=== PATIENT | male | born 1955 | race Caucasian/White ===

== ENCOUNTER 2023-06-06 10:27 | Emergency (ER) | payer MEDICARE, OTHER, SELFPAY ==
[2023-06-06 10:33] LABS: Glucose - Point of Care 92 mg/dl (70-99)
[2023-06-06 11:07] VITALS: BP 105/77; BMI 37.8
[2023-06-06] MEDS: OMNIPAQUE 50 ML PO (11:21)
[2023-06-06 11:33] LABS: % Basophils 0.8 % (0-2); % Eosinophils 2.8 % (0-6); % Immature Granulocytes 0.4 % (0-0.5); % Lymphocytes 24.1 % (20.5-51.1); % Monocytes 9.5 % (1.7-9.3); % Neutrophils 62.4 % (42.2-75.2); Absolute Basophils 0.1 10^3/uL (0-0.2); Absolute Eosinophils 0.2 10^3/uL (0-0.7); Absolute Lymphocytes 1.9 10^3/uL (1.2-3.4); Absolute Monocytes 0.8 10^3/uL (0.1-0.6); Absolute Neutrophils 4.9 10^3/uL (1.4-6.5); Hemoglobin 14.9 g/dL (13.0-18.0); Mean Corp Hgb Conc. 33.1 g/dL (33.0-37.0); Mean Corpuscular Hgb 32.5 pg (27.0-31.0); Mean Corpuscular Volume 98.3 fL (80.0-94.0); Mean Platelet Volume 10.6 fL (7.4-10.4); Nucleated Red Blood Cells % 0 % (-); Platelet Count 185 10^3/uL (130-400); Red Blood Cell Count 4.58 10^6/uL (4.70-6.10); Red Cell Dist. Width 13.1 % (11.5-14.5); White Blood Cell Count 7.9 10^3/uL (4.8-10.8)
[2023-06-06 11:37] LABS: Urine Albumin Trace (Neg - Trace); Urine Bilirubin 1+ (Negative); Urine Character Slightly Cloudy (Clear); Urine Color Yellow; Urine Glucose Negative (Negative); Urine Ketone 1+ (Negative); Urine Leukocyte Trace (Negative); Urine Nitrite Negative (Negative); Urine Occult Blood Negative (Negative); Urine Urobilinogen 1+ (Neg - 1+)
[2023-06-06 11:46] LABS: Urine Mucus Many; Urine Red Blood Cell 0-2 /HPF (0-2); Urine Squamous Cell 26-30 /LPF (Few)
[2023-06-06 11:47] LABS: Urine Bacteria Few (Negative)
[2023-06-06 12:00] LABS: ALT (SGPT) 11 U/L (0-50); AST (SGOT) 28 U/L (17-59); Albumin 3.9 g/dl (3.5-5.0); Alkaline Phosphatase 73 U/L (38-126); Blood Urea Nitrogen 27 mg/dl (9-20); Carbon Dioxide 24 mmol/L (22-30); Chloride 108 mmol/L (98-107); Estimated Creatinine Clearance 108 ml/min; Glucose 74 mg/dl (70-99); Lipase 79 U/L (23-300); Potassium 4.3 mmol/L (3.5-5.1); Sodium 137 mmol/L (135-145); Total Bilirubin 0.8 mg/dl (0.2-1.3); Total Protein 6.4 g/dl (6.3-8.2); eGFR > 60.00
--- NOTE | 2023-06-06 12:55 | ED.GENMED ---
History of Present Illness
General
Chief Complaint: Abdominal Pain
Source: patient and spouse
Exam Limitations: clinical condition (Apraxia)
Time Seen by Provider: 06/06/23 10:39
Nursing documentation reviewed up to this point in time: agreed with
Travel History
Have you had any contact with someone who has COVID-19?: No
Do you have any symptoms of coronavirus? Fever > 100 degrees, chills, cough, shortness of breath, sore throat, loss of taste or smell, muscle aches, or headache?: No
History of Present Illness
History of Present Illness:
67-year-old male with past medical history of Parkinson's, CUATE on CPAP, hypertension, hyperlipidemia, CHF, diabetes, apraxia who presents to the emergency department for evaluation of abdominal pain. Patient reports onset of symptoms this morning
just prior to arrival�says he has right sided abdominal/flank pain. No clear triggering or relieving factors noted. He says that symptoms have been waxing and waning�currently he says he is pain-free. He denies any associated nausea or vomiting.
Denies any recent fevers or chills. Denies any constipation or diarrhea. He denies any dysuria, hematuria, change in urinary frequency. He denies similar symptoms in the past. His offers that he recently started doing some physical therapy
and that 2 days ago he did a workup with a therapist for core strength and she wonders if perhaps his pain could be muscular.
Past History
Past History
ED Past Medical History: CHF, HTN, Hypercholesterolemia, NIDDM and Other (Sleep apnea, DVT)
ED Past Surgical History: Cardiac, Cholecystectomy, Orthopedic and Other
Social History
Tobacco: Non-smoker
Alcohol: None
Drug: None
Personal:
Living: with family
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
Family History
Family History: CAD
Review of Systems
Review of Systems
All Other Systems: ROS reviewed and negative except as documented in HPI and ROS
Constitutional: Denies fever or chills
Respiratory: Denies cough or trouble breathing
Cardiac: Denies chest pain or palpitations
ABD/GI: Reports abdominal pain; Denies nausea, vomiting, diarrhea or constipated
: Reports flank pain; Denies dysuria or frequency
Musculoskeletal: Denies neck pain or back pain
Neurological: Denies headache, weakness or numbness
Phy Exam
Physical Exam
Physical Exam:
General: Awake, alert; no acute distress
Head: Normocephalic, atraumatic
Eyes: Conjunctiva normal, sclera anicteric
Throat: Airway intact, handling secretions
Neck: Trachea midline, supple without meningismus
Lungs: Clear to auscultation bilaterally, no wheezing, rales, rhonchi
Heart: Regular rate and rhythm, no murmurs, gallops, or rubs
Abd: Soft, non distended, very mildly tender in the right lateral lower abdomen/flank; no abdominal masses noted, no peritoneal signs
Neuro: Cranial nerves grossly intact, speech fluid
Skin: no rash
Extremities: No edema in extremities, warm and well-perfused
Scores
Heart Failure Risk
Heart Failure Risk Score: Not Applicable
Heart Score for Chest Pain Patients
STEMI patient?: Not applicable
Withdrawal Assessment of Alcohol
Withdrawal Assessment Completed?: Not applicable
Course
Orders/Labs/Results
Orders:
Orders
06/06/23 10:41
Iohexol [Omnipaque] See Protocol PO NOW STA
06/06/23 10:42
CT Abd/pel W Iv And Oral Contr Urgent
Comment:
Reason For Exam: right sided abd pain
06/06/23 11:20
Complete Blood Count/With Diff Urgent
Comprehensive Metabolic Panel Urgent
Lipase Urgent
Urinalysis Reflex To Culture Urgent
Date Specimen was Collected: 06/06/23
Time Specimen was Collected: 11:07
Urine Microscopic Reflex Cult Urgent
Abnormal Lab Results
06/06/23
11:20
RBC 4.58 L 10^6/uL
(4.70-6.10)
MCV 98.3 H fL
(80.0-94.0)
MCH 32.5 H pg
(27.0-31.0)
MPV 10.6 H fL
(7.4-10.4)
Absolute Monos (auto) 0.8 H 10^3/uL
(0.1-0.6)
Monocytes % 9.5 H %
(1.7-9.3)
Chloride 108 H mmol/L
(98-107)
BUN 27 H mg/dl
(9-20)
Urine Ketones 1+ A
(Negative)
Urine Bilirubin 1+ A
(Negative)
Leukocyte Esterase Rfl Trace A
(Negative)
Urine Bacteria (Reflex) Few A
(Negative)
06/06/23 11:20
06/06/23 11:20
Vital Signs
Initial and Last Documented VS:
Initial Vital Signs
Pulse Resp Pulse Ox
68 18 98
06/06/23 10:30 06/06/23 10:30 06/06/23 10:30
Last Documented Vital Signs
Temp Pulse Resp BP Pulse Ox
36.4 C 57 16 105/77 95
06/06/23 11:07 06/06/23 11:07 06/06/23 11:07 06/06/23 11:07 06/06/23 11:07
MDM/Problems Addressed
Differential Diagnosis Includes:
Muscular strain, nephrolithiasis, cholelithiasis; UTI, appendicitis a consideration but less likely given timing of symptoms
MDM/Problems Addressed:
67-year-old male presents for evaluation of right-sided abdominal pain that started today. Waxing and waning. No clear triggering or relieving factors. No associated signs or symptoms. He did start some physical therapy and was doing core
exercises 2 days ago. Vital signs here within normal limits. Exam as above. Plan to place an IV check labs including CBC and CMP and will check a urinalysis. Will send for CT of the abdomen pelvis. Monitor closely reassess after the above.
Labs reviewed: CBC unremarkable, CMP no clinically significant abnormalities. Urinalysis negative for blood, no signs of infection. Awaiting results of CT. Patient pain-free on reassessment�he says he has not had pain again since my initial
assessment.
CT negative for any acute pathology�no kidney stones, no appendicitis. Patient has been pain-free throughout the entirety of his ED stay he says he has not had recurrence. Patient and spouse think pain may be muscular related to recent PT think
this is most likely diagnosis at this point. I think he is stable for discharge at this point. Vitals have remained stable. Spoke to him and his about return precautions all questions answered.
Chronic conditions affecting care:
History of prior cholecystectomy; history of prior gastric sleeve
*Radiology
Radiology exam reviewed: radiology read reviewed
*Pulse Oximetry
Patient hypoxic: no
*Critical Care Note
Total Time (30-74mins, 75-104mins- exclusive of procedures): Not Applicable
Data Reviewed
Source: patient, records and spouse
ED Attending Note
-
Portions of this chart may have been created with voice recognition software.� Occasional wrong word or��sound alike� substitutions may have occurred due to the inherent limitations of voice recognition software.
Discharge Plan
Departure
Patient Disposition: Home (Routine Discharge)
Date of Disposition: 06/06/23
Time of Disposition: 14:33
Patient with high blood pressure during this ER visit?: No
Discharge Problem:
Abdominal pain
Instructions: Abdominal Muscle Strain ED
Prescriptions:
No Action
bupropion HCl [Wellbutrin SR] 150 MG tablet sustained-release 12 hr
300 mg PO DAILY
cyanocobalamin (vitamin B-12) 1,000 MCG tablet
1,000 mcg PO QPM
glimepiride 2 MG tablet
2 mg PO BID@0800,1700
montelukast 10 MG tablet
10 mg PO DAILY
allopurinol 300 MG tablet
300 mg PO DAILY
fluticasone propionate 1 SPRAY spray,suspension
1 spray intranasal DAILYPRN PRN (Reason: Congestion/allergies)
albuterol sulfate 1 PUFF HFA aerosol inhaler
2 puff inhalation R Q6HPRN PRN (Reason: sob)
carbidopa-levodopa 25-250 mg tablet
2 tab PO QID
lisinopril 20 mg tablet
20 mg PO HS
furosemide 20 mg Tablet
20 mg PO MOWEFR
metoprolol succinate 25 mg Tablet Extended Release 24 Hr
25 mg PO QPM
metformin 500 mg tablet extended release 24 hr
500 mg PO QPM
escitalopram oxalate 10 mg tablet
10 mg PO DAILY
rosuvastatin 5 mg tablet
5 mg PO QPM
cholecalciferol (vitamin D3) [Vitamin D3] 50 mcg (2,000 unit) Tablet
50 mcg PO DAILY
donepezil 23 mg tablet
23 mg PO HS
memantine 28 mg capsule,sprinkle,ER 24hr
28 mg PO HS
MCT Oil
3,000 mg PO QPM
aspirin 81 MG tablet,chewable
81 mg PO QPM
cefuroxime axetil 500 mg Tablet
500 mg PO BID Qty: 20 0RF
Referrals:
Cece Jalloh DO [Family Provider] - Follow up in 2-3 days
Activity Restrictions/Additional Instructions:
Thank you for visiting the Emergency Department at [facility].
1. Please schedule a follow up appointment as directed. Call first thing tomorrow morning to make an appointment.
2. If indicated, please take your medications as instructed and indicated on discharge paperwork.
3. If any of your symptoms do not improve, or persist, or become more severe within 6-12 hours, please return to the emergency department for further care.
4. Please return to the emergency department if you develop a headache, neck pain/stiffness, fever greater than 100.4F, chest pain, shortness of breath, persistent nausea, vomiting, slurred speech, difficulty walking, numbness/tingling, weakness,
signs of infection or any other symptoms that are worrisome to you.
Please call [phone] if you have any questions.
Interventions
Interventions:
*Risk Screen - Suicide Last Done: 06/06/23 11:07
*General Assessment Last Done: 06/06/23 11:07
*Neglect/Abuse Screening Last Done: 06/06/23 11:07
ED- Fall Risk Assessment Last Done: 06/06/23 11:07
*ED COVID-19 Vaccine History Last Done: 06/06/23 11:07
XP-Yosjks-Nhdofhfgge Assessment Last Done: 06/06/23 11:07
[2023-06-06 14:40] VITALS: BP 108/55
== END 2023-06-06 14:40 | disposition home or self-care (01) ==
LOC: EMR 10:27
PROVIDERS: EMERGENCY PHYSICIAN Emergency Medicine; FAMILY PHYSICIAN Family Medicine
DX: R10.9 Unspecified abdominal pain (principal); E78.00 Pure hypercholesterolemia, unspecified; I50.9 Heart failure, unspecified; I11.0 Hypertensive heart disease with heart failure; E11.9 Type 2 diabetes mellitus without complications; G20.A1 Parkinson's disease without dyskinesia, without mention of fluctuations
CPT/HCPCS: 99285; 74177; 80053; 81003; 81015; 82962; 83690; 85025; Q9967

== ENCOUNTER 2023-08-17 07:41 | Emergency (ER) | payer MEDICARE, OTHER, SELFPAY ==
[2023-08-17] VITALS (8 sets, daily range): BP systolic 100–134; BP diastolic 57–84
--- NOTE | 2023-08-17 08:20 | ED.GENMED ---
History of Present Illness
General
Chief Complaint: Chest Pain
Source: patient and spouse
Exam Limitations: none
Time Seen by Provider: 08/17/23 08:05
Nursing documentation reviewed up to this point in time: agreed with except (Pain is right-sided, not left-sided)
Travel History
Have you had any contact with someone who has COVID-19?: No
Do you have any symptoms of coronavirus? Fever > 100 degrees, chills, cough, shortness of breath, sore throat, loss of taste or smell, muscle aches, or headache?: No
History of Present Illness
History of Present Illness:
68-year-old male presents emerged primary complaining of right-sided chest pain that began at about 6:30 AM today. It woke him from sleep. The pain has somewhat dissipated. He denies having pain like this before. He said he has some shortness of
breath as well.
Past History
Past History
ED Past Medical History: CHF, HTN, Hypercholesterolemia, NIDDM and Other (Sleep apnea, DVT, Parkinson's)
ED Past Surgical History: Cardiac, Cholecystectomy, Orthopedic and Other
Social History
Tobacco: Non-smoker
Alcohol: None
Drug: None
Personal:
Living: with family
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
Family History
Family History: CAD
Review of Systems
Review of Systems
Allergies reviewed?: Yes
All Other Systems: Not applicable
Constitutional: Reports no symptoms
EENT: Reports no symptoms
Respiratory: Reports trouble breathing
Cardiac: Reports chest pain
ABD/GI: Reports no symptoms
: Reports no symptoms
Musculoskeletal: Reports no symptoms
Skin: Reports no symptoms
Neurological: Reports no symptoms
Endocrine: Reports no symptoms
Hematologic/Lymphatic: Reports no symptoms
Psychiatric: Reports no symptoms
Phy Exam
Physical Exam
Physical Exam:
Physical Exam
General: no apparent distress, not acutely ill
Neck: supple. no meningeal signs. normal posterior pharynx
Heart: s1/s2 regular rate and rhythm, no murmur. equal radial
pulses.
HEENT: Pupils equal round reactive to light, EOMI
Lungs: no acute respiratory distress. clear bilaterally, mild right-sided chest wall tenderness
Abdomen: normal bowel sounds. not tender. no CVAT
Neuro: alert and oriented. no focal neurological deficits cranial nerves II through XII intact, tremor left upper extremity
Skin: no rash
Psychiatric: well kept. interactive and cooperative
Extremities: no edema. no calf tenderness. negative homans. good distal pulses
Scores
Heart Score for Chest Pain Patients
STEMI patient?: No
History: Slightly or Non-Suspicious
ECG: Normal
Age: >/= 65 years
Risk Factors: 1 or 2 Risk Factors
Troponin: </= Normal Limit
Heart Score for Chest Pain Patients: 3
Heart Score Risk: 2.5% MACE over next 6 weeks
Course
Orders/Labs/Results
Orders:
Orders
08/17/23 07:42
Electrocardiogram (*1) Urgent
Reason for Study: Chest Pain
EKG- Treatment ONCE
08/17/23 08:09
IV Insert/Care/Rem.- Treatment PRN
08/17/23 08:10
Cardiac Monitoring- Treatment ONCE
CR Chest - 2 Views Urgent
Comment:
Reason For Exam: chest pain, shortness of breath
08/17/23 08:15
Complete Blood Count/With Diff Urgent
Comprehensive Metabolic Panel Urgent
Lipase Urgent
Comment: ADD ON
NT-proBNP Urgent
Troponin I Urgent
08/17/23 08:39
Add On- LAB Urgent
Tests Added?: BNP
08/17/23 09:39
Add On- LAB Urgent
Tests Added?: lipase
08/17/23 11:15
Troponin I Urgent
08/17/23 11:24
Urinalysis Reflex To Culture Urgent
Date Specimen was Collected: 08/17/23
Time Specimen was Collected: 11:18
Urine Microscopic Reflex Cult Urgent
08/17/23 12:45
US Abdomen Complete/Upper Urgent
Comment:
Reason For Exam: epigastric pain, elevated lipase
Abnormal Lab Results
08/17/23 08/17/23
08:15 11:24
MCV 95.8 H fL
(80.0-94.0)
MCH 32.2 H pg
(27.0-31.0)
BUN 26 H mg/dl
(9-20)
Glucose 118 H mg/dl
(70-99)
Lipase 401 H U/L
(23-300)
Urine Ketones 1+ A
(Negative)
Leukocyte Esterase Rfl Trace A
(Negative)
Urine Bacteria (Reflex) Few A
(Negative)
08/17/23 08:15
08/17/23 08:15
Vital Signs
Initial and Last Documented VS:
Initial Vital Signs
Temp Pulse Resp BP Pulse Ox
97.8 F 68 18 122/84 98
08/17/23 07:48 08/17/23 07:48 08/17/23 07:48 08/17/23 07:48 08/17/23 07:48
Last Documented Vital Signs
Temp Pulse Resp BP Pulse Ox
97.8 F 68 18 122/84 98
08/17/23 07:48 08/17/23 07:48 08/17/23 07:48 08/17/23 07:48 08/17/23 07:48
MDM/Problems Addressed
Differential Diagnosis Includes:
ACS, PE, CHF
MDM/Problems Addressed:
68-year-old male with right-sided chest pain, now resolved. No acute findings on EKG, no signs of ischemia, negative troponin and BNP. Will repeat troponin at 3 hours, and if negative will discharge patient follow-up with primary care. Lipase
mildly elevated, no acute findings on ultrasound. Patient had episode of shaking that was artifact, confirmed and discussed with Dr. Marino.
Chronic conditions affecting care: HTN
Acute Exacerbation and/or Progression of Chronic Illness: HTN
*Radiology
Radiology exam reviewed: radiology read reviewed (Chest x-ray no acute findings, ultrasound abdomen no acute findings)
*Pulse Oximetry
Patient hypoxic: no
*EKG
Interpreted by ED Provider?: Yes
EKG Intrepretation Date: 08/17/23
EKG Intrepretation Time: 07:45
Interpretation: abnormal
Comparison EKG: no changes
Heart Rate: 69
Rate: normal
Rhythm: sinus and PVC's
[place]: normal axis
Interval: first degree heart block
QRS Pattern: normal QRS
Ischemia: no ischemia
*Tax Compliance Agent Interpretation
Rate: normal
Interpretation: normal
Heart Rate: 70
Rhythm: sinus
*Critical Care Note
Total Time (30-74mins, 75-104mins- exclusive of procedures): Not Applicable
Data Reviewed
Review of Other/Old Records Reveals: Labs (BUN on 06/06/2023 was 27, similar to today's level of 26)
Source: records
Further Testing Considered But Not Given:
CT chest not indicated
Patient Management
Social determinants of health affecting care: Living situation
Escalation/DeEscalation of care consider admission/obs:
Admit not indicated
ED Attending Note
-
Portions of this chart may have been created with voice recognition software.� Occasional wrong word or��sound alike� substitutions may have occurred due to the inherent limitations of voice recognition software.
Discharge Plan
Departure
Patient Disposition: Home (Routine Discharge)
Date of Disposition: 08/17/23
Time of Disposition: 14:30
Patient with high blood pressure during this ER visit?: Yes
Condition: Good
Discharge Problem:
Chest pain
Instructions: Chest Pain PCP Follow Up, BLOOD PRESSURE
Prescriptions:
No Action
bupropion HCl [Wellbutrin SR] 150 MG tablet sustained-release 12 hr
300 mg PO DAILY
cyanocobalamin (vitamin B-12) 1,000 MCG tablet
1,000 mcg PO QPM
glimepiride 2 MG tablet
2 mg PO BID@0800,1700
montelukast 10 MG tablet
10 mg PO DAILY
allopurinol 300 MG tablet
300 mg PO DAILY
fluticasone propionate 1 SPRAY spray,suspension
1 spray intranasal DAILYPRN PRN (Reason: Congestion/allergies)
albuterol sulfate 1 PUFF HFA aerosol inhaler
2 puff inhalation R Q6HPRN PRN (Reason: sob)
carbidopa-levodopa 25-250 mg tablet
2 tab PO QID
lisinopril 20 mg tablet
20 mg PO HS
furosemide 20 mg Tablet
20 mg PO MOWEFR
metoprolol succinate 25 mg Tablet Extended Release 24 Hr
25 mg PO QPM
metformin 500 mg tablet extended release 24 hr
500 mg PO QPM
escitalopram oxalate 10 mg tablet
10 mg PO DAILY
rosuvastatin 5 mg tablet
5 mg PO QPM
cholecalciferol (vitamin D3) [Vitamin D3] 50 mcg (2,000 unit) Tablet
50 mcg PO DAILY
donepezil 23 mg tablet
23 mg PO HS
memantine 28 mg capsule,sprinkle,ER 24hr
28 mg PO HS
MCT Oil
3,000 mg PO QPM
aspirin 81 MG tablet,chewable
81 mg PO QPM
cefuroxime axetil 500 mg Tablet
500 mg PO BID Qty: 20 0RF
Referrals:
Cece Jalloh DO [Family Provider] -
Interventions
Interventions:
*Risk Screen - Suicide Last Done: 08/17/23 07:48
*General Assessment Last Done: 08/17/23 07:48
*Neglect/Abuse Screening Last Done: 08/17/23 07:48
*ED COVID-19 Vaccine History Last Done: 08/17/23 07:48
Discharge Date and Time
Print Language: CZECH
[2023-08-17 08:31] LABS: % Basophils 0.8 % (0-2); % Eosinophils 2.7 % (0-6); % Immature Granulocytes 0.4 % (0-0.5); % Lymphocytes 27.9 % (20.5-51.1); % Monocytes 8.4 % (1.7-9.3); % Neutrophils 59.8 % (42.2-75.2); Absolute Basophils 0.1 10^3/uL (0-0.2); Absolute Eosinophils 0.2 10^3/uL (0-0.7); Absolute Monocytes 0.6 10^3/uL (0.1-0.6); Absolute Neutrophils 4.3 10^3/uL (1.4-6.5); Hematocrit 46.1 % (39.0-52.0); Hemoglobin 15.5 g/dL (13.0-18.0); Mean Corp Hgb Conc. 33.6 g/dL (33.0-37.0); Mean Corpuscular Hgb 32.2 pg (27.0-31.0); Mean Corpuscular Volume 95.8 fL (80.0-94.0); Nucleated Red Blood Cells % 0 % (-); Platelet Count 176 10^3/uL (130-400); Red Blood Cell Count 4.81 10^6/uL (4.70-6.10); Red Cell Dist. Width 12.9 % (11.5-14.5); White Blood Cell Count 7.1 10^3/uL (4.8-10.8)
[2023-08-17 08:49] LABS: ALT (SGPT) 13 U/L (0-50); AST (SGOT) 25 U/L (17-59); Albumin 4.3 g/dl (3.5-5.0); Alkaline Phosphatase 71 U/L (38-126); Blood Urea Nitrogen 26 mg/dl (9-20); Calcium 9.8 mg/dl (8.4-10.2); Carbon Dioxide 28 mmol/L (22-30); Chloride 104 mmol/L (98-107); Glucose 118 mg/dl (70-99); Potassium 4.5 mmol/L (3.5-5.1); Sodium 138 mmol/L (135-145); Total Bilirubin 0.7 mg/dl (0.2-1.3); Total Protein 6.8 g/dl (6.3-8.2); eGFR > 60.00
[2023-08-17 08:54] LABS: NT-proBNP < 20.0 pg/ml; Troponin I < 0.012 ng/ml
[2023-08-17 10:10] LABS: Lipase 401 U/L (23-300)
[2023-08-17 11:34] LABS: Urine Albumin Negative (Neg - Trace); Urine Bilirubin Negative (Negative); Urine Character Clear (Clear); Urine Color Yellow; Urine Glucose Negative (Negative); Urine Ketone 1+ (Negative); Urine Leukocyte Trace (Negative); Urine Nitrite Negative (Negative); Urine Occult Blood Negative (Negative); Urine Specific Gravity 1.015 (<1.030); Urine Urobilinogen Negative (Neg - 1+)
[2023-08-17 11:58] LABS: Troponin I < 0.012 ng/ml
[2023-08-17 11:59] LABS: Urine Squamous Cell >30 /LPF (Few)
[2023-08-17 12:00] LABS: Urine Bacteria Few (Negative); Urine Red Blood Cell None Seen /HPF (0-2); Urine White Cell 0-2 /HPF (0-5)
== END 2023-08-17 14:57 | disposition home or self-care (01) ==
LOC: EMR 07:41
PROVIDERS: EMERGENCY PHYSICIAN Emergency Medicine; FAMILY PHYSICIAN Family Medicine
DX: R07.89 Other chest pain (principal); I11.0 Hypertensive heart disease with heart failure; I50.9 Heart failure, unspecified; E78.00 Pure hypercholesterolemia, unspecified; E11.9 Type 2 diabetes mellitus without complications; G47.30 Sleep apnea, unspecified; G20.A1 Parkinson's disease without dyskinesia, without mention of fluctuations; Z82.49 Family history of ischemic heart disease and other diseases of the circulatory system; Z86.718 Personal history of other venous thrombosis and embolism; Z90.49 Acquired absence of other specified parts of digestive tract
CPT/HCPCS: 99284; 71046; 76700; 80053; 81003; 81015; 83690; 83880; 84484; 85025; 93005

== ENCOUNTER → 2023-08-28 08:17 | Outpatient (REF) | payer MEDICARE, OTHER, SELFPAY ==
--- NOTE | 2023-08-28 13:01 | CARDSERVDEF ---
Echocardiogram with Definity completed after protocol screening completed. Allergies verified.
Patent IV site: __L antecube___
IV site flushed with 0.9% NaCl pre and post administration.
Diluted bolus method utilized to enhance visualization of ventricular gómez.
Total volume given: _6___ mL
Patient tolerated all procedures well without complications.
== END ==
LOC: DHCBS HW 08:17
PROVIDERS: ATTENDING PHYSICIAN Internal Medicine Cardiovascular Disease; FAMILY PHYSICIAN Internal Medicine
DX: I77.810 Thoracic aortic ectasia (principal)
CPT/HCPCS: 93306; Q9957

== ENCOUNTER 2024-09-01 19:54 | Inpatient (IN) | payer MEDICARE, OTHER, SELFPAY ==
[2024-09-01] VITALS (11 sets, daily range): BP systolic 107–162; BP diastolic 63–95; BMI 33.4; BMI 33.1
[2024-09-01 13:46] LABS: % Basophils 0.5 % (0-2); % Eosinophils 1.1 % (0-6); % Immature Granulocytes 0.2 % (0-0.5); % Monocytes 7.3 % (1.7-9.3); % Neutrophils 72.9 % (42.2-75.2); Absolute Basophils 0.1 10^3/uL (0-0.2); Absolute Eosinophils 0.1 10^3/uL (0-0.7); Absolute Lymphocytes 1.7 10^3/uL (1.2-3.4); Absolute Monocytes 0.7 10^3/uL (0.1-0.6); Absolute Neutrophils 6.7 10^3/uL (1.4-6.5); Hematocrit 46.5 % (39.0-52.0); Hemoglobin 15.6 g/dL (13.0-18.0); Mean Corp Hgb Conc. 33.5 g/dL (33.0-37.0); Mean Corpuscular Hgb 32.4 pg (27.0-31.0); Mean Corpuscular Volume 96.5 fL (80.0-94.0); Mean Platelet Volume 10.1 fL (7.4-10.4); Nucleated Red Blood Cells % 0 % (-); Platelet Count 196 10^3/uL (130-400); Red Blood Cell Count 4.82 10^6/uL (4.70-6.10); Red Cell Dist. Width 12.6 % (11.5-14.5); White Blood Cell Count 9.2 10^3/uL (4.8-10.8)
[2024-09-01 14:02] LABS: ALT (SGPT) 11 U/L (0-50); AST (SGOT) 21 U/L (17-59); Albumin 4.2 g/dl (3.5-5.0); Alkaline Phosphatase 86 U/L (38-126); Blood Urea Nitrogen 23 mg/dl (9-20); Carbon Dioxide 25 mmol/L (22-30); Chloride 105 mmol/L (98-107); Glucose 124 mg/dl (70-99); Lipase 110 U/L (23-300); Potassium 4.6 mmol/L (3.5-5.1); Sodium 140 mmol/L (135-145); Total Protein 6.8 g/dl (6.3-8.2); eGFR > 60.00
[2024-09-01] MEDS: DILAUDID 0.5 MG IV (16:44)
--- NOTE | 2024-09-01 16:53 | ED.GENMED ---
History of Present Illness
General
Chief Complaint: Abdominal Pain
Source: patient
Time Seen by Provider: 09/01/24 16:27
History of Present Illness
History of Present Illness:
69-year-old male with past medical history of Parkinson's, CAD, CHF, hypertension, hyperlipidemia, lwk-mwmoycy-auglflgvi diabetes presenting to the emergency department for evaluation after he was showering this morning and noticed a bulge/masslike
structure within his abdomen that has become progressively more painful throughout the day prompting him to come to the ER this afternoon. Patient did not take anything for his symptoms and other than the pain has no other symptoms at present. He
is denying any fevers, chills, rigors, nausea, vomiting, bowel changes or urinary symptoms. He denies any history of known hernias. He does have a history of multiple abdominal surgeries including cholecystectomy and gastric sleeve. No other
current symptoms. Patient currently rating pain 9 out of 10, aching, nonradiating.
Past History
Past History
ED Past Medical History: CHF, HTN, Hypercholesterolemia, NIDDM and Other (Sleep apnea, DVT, Parkinson's)
ED Past Surgical History: Cardiac, Cholecystectomy, Orthopedic and Other
Social History
Tobacco: Non-smoker
Alcohol: None
Drug: None
Personal:
Living: with family
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
Family History
Family History: CAD
Review of Systems
Review of Systems
All Other Systems: ROS reviewed and negative except as documented in HPI and ROS
Phy Exam
Physical Exam
Physical Exam:
GENERAL: Alert , appears uncomfortable and in pain but nontoxic
EYE: clear conjunctiva b/l
HEAD: NCAT
ENT: mmm.
CARDIAC: Regular rate and rhythm .
LUNGS: Clear breath sounds bilaterally, no acute respiratory distress, no wheezes/rales/rhonchi
ABDOMEN: Soft, there is a firm masslike structure around the umbilicus with no overlying skin changes, very tender to palpation, unable to reduce, normoactive bowel sounds
NEUROLOGICAL: Alert and oriented
SKIN: Warm and dry, skin intact.
MUSCULOSKELETAL: well perfused.
PSYCH: Normal and appropriate interaction.
Scores
Heart Failure Risk
Heart Failure Risk Score: Not Applicable
Heart Score for Chest Pain Patients
STEMI patient?: Not applicable
Withdrawal Assessment of Alcohol
Withdrawal Assessment Completed?: Not applicable
Course
Orders/Labs/Results
Orders:
Orders
09/01/24 13:37
Complete Blood Count/With Diff Urgent
Comprehensive Metabolic Panel Urgent
Lipase Urgent
09/01/24 16:33
CT Abd/pelvis W Iv Cont Urgent
Comment:
Reason For Exam: abd mass/pain
HYDROmorphone [Dilaudid] 0.5 mg IV NOW STA
09/01/24 16:44
Lactic Acid Q4H
Comment: CANCEL 2nd LACTIC ACID IF 1st LACTIC ACID IS LESS THAN 2
09/01/24 18:29
HYDROmorphone [Dilaudid] 1 mg IV NOW STA
Lorazepam [Ativan] 1 mg IV NOW STA
Abnormal Lab Results
09/01/24
13:37
MCV 96.5 H fL
(80.0-94.0)
MCH 32.4 H pg
(27.0-31.0)
Absolute Neuts (auto) 6.7 H 10^3/uL
(1.4-6.5)
Absolute Monos (auto) 0.7 H 10^3/uL
(0.1-0.6)
Lymphocytes % 18.0 L %
(20.5-51.1)
BUN 23 H mg/dl
(9-20)
Glucose 124 H mg/dl
(70-99)
09/01/24 13:37
09/01/24 13:37
Vital Signs
Initial and Last Documented VS:
Initial Vital Signs
Temp Pulse Resp BP Pulse Ox
97.5 F 87 16 133/63 99
09/01/24 13:29 09/01/24 13:29 09/01/24 13:29 09/01/24 13:29 09/01/24 13:29
Last Documented Vital Signs
Temp Pulse Resp BP Pulse Ox
97.5 F 87 16 107/77 97
09/01/24 13:29 09/01/24 13:29 09/01/24 13:29 09/01/24 19:05 09/01/24 19:05
MDM/Problems Addressed
Differential Diagnosis Includes:
Incarcerated versus strangulated hernia, bowel obstruction, mass/malignancy
MDM/Problems Addressed:
69-year-old male presenting the ER for gradually increasing pain with a palpated masslike structure in his abdomen this morning. Pain worsening throughout the day. No other symptoms based off exam I am most concern for strangulated or incarcerated
umbilical hernia. I did attempt to reduce however patient having too much pain. Will treat with Dilaudid and apply an ice pack to the area and reattempt. Will notify surgical team. Labs including lactic acid ordered. Disposition pending.
*Radiology
Radiology exam reviewed: radiology read reviewed
*Pulse Oximetry
Patient hypoxic: no
*Critical Care Note
Total Time (30-74mins, 75-104mins- exclusive of procedures): Not Applicable
Data Reviewed
Review of Other/Old Records Reveals: Labs, Records and Radiology Studies
Patient Management
Discussion with other providers: Hospitalist and Runner Worker
Escalation/DeEscalation of care consider admission/obs:
Other than case and CT scan reviewed with general surgery and he feels patient's presentation is more consistent with an incarcerated/strangulated hernia. And will come to the ER to evaluate and attempt to reduce. Requesting 1 mg of Ativan and 1
mg of Dilaudid be ready at the bedside prior to procedure for pain control during the hopeful reduction of the hernia.
General surgery was able to reduce the hernia at bedside. Recommending admission to the hospital overnight with plans to hopefully take the patient to the OR tomorrow morning. N.p.o. after midnight. Hospitalist team is aware and accepts for
continued evaluation and treatment.
ED Attending Note
-
Portions of this chart may have been created with voice recognition software.� Occasional wrong word or��sound alike� substitutions may have occurred due to the inherent limitations of voice recognition software.
Discharge Plan
Departure
Patient Disposition: Admit
Date of Disposition: 09/01/24
Time of Disposition: 19:13
Presentation/result/management discussed w/ accepting MD/DO: Hospitalist
Discharge Problem:
Incarcerated umbilical hernia
Prescriptions:
No Action
bupropion HCl [Wellbutrin SR] 150 MG tablet sustained-release 12 hr
300 mg PO DAILY
cyanocobalamin (vitamin B-12) 1,000 MCG tablet
1,000 mcg PO QPM
glimepiride 2 MG tablet
2 mg PO BID@0800,1700
montelukast 10 MG tablet
10 mg PO DAILY
allopurinol 300 MG tablet
300 mg PO DAILY
fluticasone propionate 1 SPRAY spray,suspension
1 spray intranasal DAILYPRN PRN (Reason: Congestion/allergies)
albuterol sulfate 1 PUFF HFA aerosol inhaler
2 puff inhalation R Q6HPRN PRN (Reason: sob)
carbidopa-levodopa 25-250 mg tablet
2 tab PO QID
lisinopril 20 mg tablet
20 mg PO HS
furosemide 20 mg Tablet
20 mg PO MOWEFR
metoprolol succinate 25 mg Tablet Extended Release 24 Hr
25 mg PO QPM
metformin 500 mg tablet extended release 24 hr
500 mg PO QPM
escitalopram oxalate 10 mg tablet
10 mg PO DAILY
rosuvastatin 5 mg tablet
5 mg PO QPM
cholecalciferol (vitamin D3) [Vitamin D3] 50 mcg (2,000 unit) Tablet
50 mcg PO DAILY
donepezil 23 mg tablet
23 mg PO HS
memantine 28 mg capsule,sprinkle,ER 24hr
28 mg PO HS
MCT Oil
3,000 mg PO QPM
aspirin 81 MG tablet,chewable
81 mg PO QPM
cefuroxime axetil 500 mg Tablet
500 mg PO BID Qty: 20 0RF
Referrals:
NONE,* [Active] -
Interventions
Interventions:
*Risk Screen - Suicide Last Done: 09/01/24 15:37
*General Assessment Last Done: 09/01/24 13:29
*Neglect/Abuse Screening Last Done: 09/01/24 15:37
*ED- Fall Risk Assessment Last Done: 09/01/24 15:37
*ED COVID-19 Vaccine History Last Done: 09/01/24 13:29
RL-Jfbisz-Kpoqlprcrl Assessment Last Done: 09/01/24 15:37
Discharge Date and Time
Print Language: KISWAHILI
[2024-09-01] MEDS: DILAUDID 1 MG IV (19:01)
[2024-09-01] MEDS: ATIVAN 1 MG IV (19:01)
--- NOTE | 2024-09-01 19:12 | CON.GS ---
Consultation
-
Date/Time Consultation Performed: 09/01/24
Requesting Provider: Candi
Performing Provider: Ervin
Reason for Consultation: Umbilical hernia
Medical History
-
Chief Complaint: Abd pain
History of Present Illness:
69M with PD p/w <24 hrs of umbilical pain. Denies f/c/n/v. Noticed in the shower. Due dementia he is a limited historian, mostly history is from and chart. reports chronic constipation, he takes miralax and drinks kombucha for this.
Past Medical History
Past Medical History: Other (CHF (EF 65-70% 1 year ago), HTN, Hypercholesterolemia, NIDDM and Other (Sleep apnea, DVT, Parkinson's))
Past Surgical History: Other (Cardiac, Cholecystectomy, Orthopedic, gastric sleeve)
Social History
Tobacco: Non-Smoker
Alcohol: None
Drug: None
Personal:
Living: With Family
Family History
Family History: Reviewed & Noncontributory
Allergies / Home Medications
Allergy/AdvReac Type Severity Reaction Status Date / Time
ciprofloxacin [From Cipro] Allergy tendonitis Verified 09/01/24 13:31
ciprofloxacin HCl Allergy tendonitis Verified 09/01/24 13:31
[From Cipro]
�Medication �Instructions �Recorded �Confirmed �Type
allopurinol 300 mg tablet 300 mg PO DAILY Gout 08/09/17 03/22/23 History
bupropion HCl 150 mg tablet,12 hr 300 mg PO DAILY Mental 08/09/17 03/22/23 History
sustained-release (Wellbutrin SR) Health/Anxiety
cyanocobalamin (vitamin B-12) 1,000 mcg PO QPM Supplement 08/09/17 03/22/23 History
1,000 mcg tablet
fluticasone propionate 50 1 spray intranasal DAILYPRN PRN 08/09/17 03/22/23 History
mcg/actuation nasal Congestion/allergies
spray,suspension
glimepiride 2 mg tablet 2 mg PO BID@0800,1700 Diabetes 08/09/17 03/22/23 History
montelukast 10 mg tablet 10 mg PO DAILY Allergies 08/09/17 03/22/23 History
albuterol sulfate 90 mcg/actuation 2 puff inhalation R Q6HPRN PRN sob 08/15/17 03/22/23 History
aerosol inhaler
MCT Oil 3,000 mg PO QPM supl 03/22/23 03/22/23 History
aspirin 81 mg chewable tablet 81 mg PO QPM Blood Clot 03/22/23 03/22/23 History
Prevention/Tx
carbidopa 25 mg-levodopa 250 mg 2 tab PO QID Neurological Condition 03/22/23 03/22/23 History
tablet
cholecalciferol (vitamin D3) 50 50 mcg PO DAILY Supplement 03/22/23 03/22/23 History
mcg (2,000 unit) tablet (Vitamin
D3)
donepezil 23 mg tablet 23 mg PO HS Neurological Condition 03/22/23 03/22/23 History
escitalopram oxalate 10 mg tablet 10 mg PO DAILY Mental 03/22/23 03/22/23 History
Health/Anxiety
furosemide 20 mg tablet 20 mg PO MOWEFR Fluid 03/22/23 03/22/23 History
Retention/Swelling
lisinopril 20 mg tablet 20 mg PO HS Blood Pressure 03/22/23 03/22/23 History
memantine 28 mg capsule 28 mg PO HS Neurological Condition 03/22/23 03/22/23 History
sprinkle,extended release 24hr
metformin 500 mg tablet,extended 500 mg PO QPM Diabetes 03/22/23 03/22/23 History
release 24 hr
metoprolol succinate 25 mg 25 mg PO QPM Blood Pressure 03/22/23 03/22/23 History
tablet,extended release 24 hr
rosuvastatin 5 mg tablet 5 mg PO QPM High Cholesterol 03/22/23 03/22/23 History
cefuroxime axetil 500 mg tablet 500 mg PO BID #20 tabs 03/26/23 Rx
Review of Systems
-
A 10 point review of systems was completed, and was negative except as per HPI.
Physical Exam
Vital Signs
Temp Pulse Resp BP Pulse Ox
97.5 F 87 16 107/77 97
09/01/24 13:29 09/01/24 13:29 09/01/24 13:29 09/01/24 19:05 09/01/24 19:05
08/31/24 09/01/24 09/02/24
06:59 06:59 06:59
Actual Weight 121.3 kg
Body Mass Index (BMI) 33.4
Lab Results
09/01/24 13:37
09/01/24 13:37
WBC 9.2 10^3/uL (4.8-10.8) 09/01/24 13:37
Hgb 15.6 g/dL (13.0-18.0) 09/01/24 13:37
Hct 46.5 % (39.0-52.0) 09/01/24 13:37
Plt Count 196 10^3/uL (130-400) 09/01/24 13:37
Abs Immat Gran (auto) 0.0 10^3/uL (0-0.05) 09/01/24 13:37
Neutrophils % 72.9 % (42.2-75.2) 09/01/24 13:37
Physical Exam
General: Well Developed, Well Nourished and No Apparent Distress
GI: Soft, Non Distended and Tender (incarcerated tender UH)
Skin: Warm and Dry
Neuro: Awake, Alert and Oriented (to self)
Psych: Calm
Data Reviewed
-
CT Scan: Image Personally Visualized and interpreted, Report Reviewed by me, Discussed with Physician, Discussed with Patient and Discussed with Family
Labs: Labs Reviewed by me and Discussed with Physician
Assessment / Plan
-
69M with incarcerated UH involving small bowel, reduced in ED
AFVSS, tender at firm hernia, fully reduced with moderate difficulty after 1mg dilaudid/1mg ativan
No leukocytosis, lactic WNL
CT with UH involving loop of sb, upstream dilation and decompressed distally
Plan for admit to Hospitalist for obs
OK for diet now, NPO @ MN
Tentatively added onto OR schedule tomorrow for RAL UHR
OK for PO meds with small sip
Cont ASA 81mg
Rec SQH for DVT ppx
--- NOTE | 2024-09-01 19:20 | HPS.HSE ---
Addendum entered and electronically signed by Michael Sanchez DO 09/01/24 20:55:
Patient seen and examined independently. Agree with findings and plan as set forth by ROSELINE Elliott.
Patient is a69y M with PMH significant for Parkinson's disease with dementia and aphasia who presents to ED c/o abdominal pain. Patient noted a 'bulge' / swelling in the lower abdomen this AM while in the shower. This area became more painful
throughout the day prompting patient to present to the ED for further evaluation.
He had no N/V/D. No fevers / chills.
Evaluation in the ED revealed umbilical hernia with proximal small bowel obstruction.
Patient was evaluated by Surgery in the ED and the hernia was successfully reduced.
Ass:
Incarcerated Umbilical Hernia
SBO secondary to the above
Chronic HFpEF
Parkinson's Disease with Dementia / Aphasia
DM-II
Asthma without Acute Exacerbation
Plan:
Admit for further evaluation and treatment.
Monitor for any recurrence of pain / hernia throughout the night.
Appreciate Surgery evaluation.
Patient tentatively for OR / hernia repair in the AM.
Continue usual Parkinson's medications without interruption as possible.
Hold PO DM medications acutely.
Original Note:
Family Physician
-
Family Physician: Cece Jalloh
Chief Complaint
-
abdominal pain
History of Present Illness
69-year-old male with past medical history of Parkinson's, CAD, CHF, hypertension, hyperlipidemia, ooh-lerhxba-yrkjhqkma diabetes presenting to the emergency department for evaluation after he was showering this morning and noticed a bulge/masslike
structure within his abdomen that has become progressively more painful throughout the day prompting him to come to the ER this afternoon. patient denied nausea, vomiting, diarrhea or constipation. He is denying any fevers, chills, rigors. denied
chest pain, sob. denied dysuria or hematuria.
CT with the impression of Small bowel obstruction with transition point at the site of umbilical hernia. patient was evaluated by surgery, recommended NPO after MN for possible surgery in AM>
Medical History
Past Medical History
Past Medical History: Reports Other
Additional Past Medical History:
CHF
HTN
HLD
NIDDM
sleep apnea
DVT
Parkinson
CKD stage 3
asthma
tremors
GOUT
depression
BPH
neuropathy
Past Surgical History: Reports Other
Additional Past Surgical History:
cholecystectomy
gastric sleeve
right elbow surgery
repair of deviated nasal septum
s/p left thumb socket surgery
Social History
Tobacco: Non-smoker
Alcohol: None
Drug: None
Personal:
Living: With Family
Family History
Family History: Not pertinent
Allergies / Home Medications
Allergies reflects when Allergies were last updated in [employer].
Home Medications with original date entered in [employer]
Allergy/Medication List:
Allergies
Allergy/AdvReac Type Severity Reaction Status Date / Time
ciprofloxacin [From Cipro] Allergy tendonitis Verified 09/01/24 13:31
ciprofloxacin HCl Allergy tendonitis Verified 09/01/24 13:31
[From Cipro]
Home Medications
allopurinol 300 mg tablet 300 mg PO DAILY Gout 08/09/17
bupropion HCl 150 mg tablet,12 hr sustained-release (Wellbutrin SR) 300 mg PO DAILY Mental Health/Anxiety 08/09/17
cyanocobalamin (vitamin B-12) 1,000 mcg tablet 1,000 mcg PO QPM Supplement 08/09/17
fluticasone propionate 50 mcg/actuation nasal spray,suspension 1 spray intranasal DAILYPRN PRN Congestion/allergies 08/09/17
glimepiride 2 mg tablet 2 mg PO BID@0800,1700 Diabetes 08/09/17
montelukast 10 mg tablet 10 mg PO DAILY Allergies 08/09/17
albuterol sulfate 90 mcg/actuation aerosol inhaler 2 puff inhalation R Q6HPRN PRN sob 08/15/17
MCT Oil 3,000 mg PO QPM supl 03/22/23
aspirin 81 mg chewable tablet 81 mg PO QPM Blood Clot Prevention/Tx 03/22/23
carbidopa 25 mg-levodopa 250 mg tablet 2 tab PO QID Neurological Condition 03/22/23
cholecalciferol (vitamin D3) 50 mcg (2,000 unit) tablet (Vitamin D3) 50 mcg PO DAILY Supplement 03/22/23
donepezil 23 mg tablet 23 mg PO HS Neurological Condition 03/22/23
escitalopram oxalate 10 mg tablet 10 mg PO DAILY Mental Health/Anxiety 03/22/23
furosemide 20 mg tablet 20 mg PO MOWEFR Fluid Retention/Swelling 03/22/23
lisinopril 20 mg tablet 20 mg PO HS Blood Pressure 03/22/23
memantine 28 mg capsule sprinkle,extended release 24hr 28 mg PO HS Neurological Condition 03/22/23
metformin 500 mg tablet,extended release 24 hr 500 mg PO QPM Diabetes 03/22/23
metoprolol succinate 25 mg tablet,extended release 24 hr 25 mg PO QPM Blood Pressure 03/22/23
rosuvastatin 5 mg tablet 5 mg PO QPM High Cholesterol 03/22/23
cefuroxime axetil 500 mg tablet 500 mg PO BID #20 tabs 03/26/23
Review of Systems
-
Constitutional: Reports No Symptoms
EENT: Reports No Symptoms
Respiratory: Reports No Symptoms
Cardiac: Reports No Symptoms
Abdomen/GI: Reports Abdominal Pain
: Reports No Symptoms
Musculoskeletal: Reports No Symptoms
Skin: Reports No Symptoms
Neurological: Reports No Symptoms
Endocrine: Reports No Symptoms
Hematologic/Lymphatic: Reports No Symptoms
Psych: Reports No Symptoms
Physical Exam
Vital Signs
Vital Signs
Temp Pulse Resp BP Pulse Ox
97.5 F 87 16 107/77 97
09/01/24 13:29 09/01/24 13:29 09/01/24 13:29 09/01/24 19:05 09/01/24 19:05
Physical Exam
General: Well Developed, Well Nourished and No Apparent Distress
HEENT: NormoCephalic, Moist mucous membranes and Atraumatic
Respiratory: Clear
Cardiac: S1/S2 and Regular Rhythm; No Murmur or Rub
GI: Soft, Non Tender, Non Distended and Normal Bowel Sounds; No Organomegaly
Rectal: Deferred by Provider
Musculoskeletal: No Clubbing, No Cyanosis and No Edema
Skin: No Rash
Neuro: AO x 3 and Nonfocal/grossly intact
Psych: Calm
Laboratory Results
-
09/01/24 13:37
09/01/24 13:37
Laboratory Results
Lactic Acid Cancelled 09/01/24 20:45
Total Bilirubin 1.0 mg/dl (0.2-1.3) 09/01/24 13:37
AST 21 U/L (17-59) 09/01/24 13:37
ALT 11 U/L (0-50) 09/01/24 13:37
Alkaline Phosphatase 86 U/L (38-126) 09/01/24 13:37
Lipase 110 U/L (23-300) 09/01/24 13:37
Data Reviewed
-
CT Scan: Report Reviewed by me
Lab Data: Labs Reviewed by me
Impression/Plan
-
#incarcerated umbilical hernia
-reduced at the bedside by surgery
-NPO after MN for surgical intervention in AM
-Dilaudid prn for pain
-surgery consulted
-CT abdomen pelvis with Small bowel obstruction with transition point at the site of umbilical hernia.
#Chronic heart failure with preserved ejection fraction
Continue outpatient dose of Lasix, lisinopril
#Hyperlipidemia-continue rosuvastatin
#Parkinson's disease with dementia
- carbidopa levodopa
-Continue donepezil and memantine
#type 2 DM
-sliding scale
-hold glimepiride and metformin
#Sleep apnea-not using CPAP
#CKD stage 2
#Obesity per BMI-40
-History of gastric bypass with gastric sleeve 2008
#Depression
-Zoloft and Wellbutrin continued
#History of dilated aortic root
#Gout-continue allopurinol
#Diverticulosis
#History of asthma
-Singulair continued
#DVT prophylaxis-subcutaneous heparin
#CODE status
-DNR
--- NOTE | 2024-09-01 21:30 | PTCARENOTE ---
Received patient from ED. Patient was an assist x 3 to stand and pivot from stretcher to bed. Oriented to room. Call varner in reach.
--- NOTE | 2024-09-01 22:30 | PTCARENOTE ---
Limited ability to complete admission questions d/t PMH of Parkinson's disease, dementia and expressive aphasia. Attempted to call spouse but phone when directly to .
[2024-09-01 22:34] LABS: Glucose - Point of Care 133 mg/dl (70-99)
[2024-09-01] MEDS: SINEMET 25-250 2 TABLET PO (23:14)
[2024-09-01] MEDS: NAMENDA 10 MG PO (23:14)
[2024-09-01] MEDS: ARICEPT 10 MG PO (23:14)
[2024-09-01] MEDS: ZESTRIL 20 MG PO (23:14)
[2024-09-01] MEDS: WELLBUTRIN SR (12 hour sustained release) 150 MG PO (23:15)
[2024-09-01] MEDS: HEPARIN 5000 UNITS SC (23:15)
[2024-09-02] VITALS (24 sets, daily range): BP systolic 99–133; BP diastolic 44–84; BMI 33.1; BMI 32.9; BMI 33.2
[2024-09-02 05:47] LABS: Glucose - Point of Care 128 mg/dl (70-99)
[2024-09-02] MEDS: NOVOLOG FLEXPEN-LOW RESISTANCE SC ×2 (06:03→13:10)
--- NOTE | 2024-09-02 08:00 | W.PN.GS2 ---
Today's Communication / Plan
-
OR today
Assessment / Plan
-
69M with umbilical hernia s/p reduction in the ED
OCTOR for RAL UHR today
Cont NPO
DVT ppx
All other care as per primary team
D/w , procedure discussed in detail as well as risks, complications and alternatives, expected recovery, informed consent obtained
Subjective Data
-
Date of Service: September 02, 2024
AFVSS, endorses abd pain, denies n/v though interaction is limited, per chart no issues overnight
Objective Data
-
Intake and Output
09/01/24 09/02/24 09/03/24
06:59 06:59 06:59
Intake Total 240 / 240
Balance 240 / 240
Intake:
Oral fluids 240 / 240
Other:
How many times incontinent 1
MODERATE amount urine
How many times incontinent 1
SATURATED amount urine
Vital Signs
Temp Pulse Resp BP Pulse Ox
97.8 F 75 18 116/84 97
09/01/24 23:13 09/02/24 04:10 09/01/24 23:13 09/02/24 04:10 09/01/24 23:13
Lab Results
09/01/24 13:37
Calcium 10.0 mg/dl (8.4-10.2) 09/01/24 13:37
Total Bilirubin 1.0 mg/dl (0.2-1.3) 09/01/24 13:37
AST 21 U/L (17-59) 09/01/24 13:37
ALT 11 U/L (0-50) 09/01/24 13:37
Alkaline Phosphatase 86 U/L (38-126) 09/01/24 13:37
Total Protein 6.8 g/dl (6.3-8.2) 09/01/24 13:37
Albumin 4.2 g/dl (3.5-5.0) 09/01/24 13:37
Physical Exam
-
Gen: NAd
Abd: mild ttp asbout the umbilicus, hernia remains reduced
Patient has a rowell catheter: No
Patient has a central line: No
[2024-09-02] MEDS: SINEMET 25-250 2 TABLET PO (08:11)
[2024-09-02] MEDS: WELLBUTRIN SR (12 hour sustained release) 150 MG PO (08:14)
[2024-09-02] MEDS: ZOLOFT 50 MG PO (08:14)
[2024-09-02] MEDS: LASIX 20 MG PO (08:14)
[2024-09-02] MEDS: NAMENDA 10 MG PO (08:14)
[2024-09-02] MEDS: ZYLOPRIM 300 MG PO (08:14)
[2024-09-02] MEDS: SINGULAIR 10 MG PO (08:14)
[2024-09-02] MEDS: HEPARIN 5000 UNITS SC ×2 (08:15→21:21)
[2024-09-02 09:21] LABS: Blood Urea Nitrogen 25 mg/dl (9-20); Calcium 9.6 mg/dl (8.4-10.2); Carbon Dioxide 20 mmol/L (22-30); Chloride 102 mmol/L (98-107); Estimated Creatinine Clearance 106 ml/min; Glucose 118 mg/dl (70-99); Potassium 4.5 mmol/L (3.5-5.1); Sodium 138 mmol/L (135-145); eGFR > 60.00
--- NOTE | 2024-09-02 09:45 | W.PN.HOSP.TC ---
Today's Communication/Plan
-
see outlined plan below
Assessment / Plan
Assessment / Plan
Assessment:
Mechanical fall
- slid from bed to floor, landed on buttocks. no head trauma
- patient denies pain
- apply bed alarms and monitoring
Incarcerated umbilical hernia
- s/p reduction by GS in ER
- NPO with IVF (Gentle rate)
- pain control, anti-emetics
- GS consulted for robotic assisted laparoscopic umbilical hernia repair
- EKG with NSR, 1 degree AV block. No active cardiopulmonary symptoms. NSQIP with above average risk of serious complications. Proceed to emergent OR without additional testing.
Chronic HFpEF
- continue Lasix, [place]
HLD - statin
Parkinson disease with dementia
- continue Sinemet, Donepezil, memantine
type 2 DM
- holding oral meds: glimepiride and Metformin
- SSI
- A1c
CUATE
- not on CPAP at home
CKD stage 2 - monitor BMP
Obesity d/t excess calories
Depression - continue Zoloft/Wellbutrin
History of dilated aortic root
Gout
- continue allopurinol
Diverticulosis
History of asthma
- Singulair continued
DVT ppx: SC Heparin
Code: DNR/DNI
Anticipated Discharge: > 48 hours
Subjective/Interval History
-
Date of Service: September 02, 2024
patient admitted for incarcerated Umbilical hernia and planned for OR Today
patient found down on the floor - was trying to get out of bed without assistance to use bathroom. Found sitting on the floor, on his backside. No head trauma.
Objective Data
-
Labs:
Laboratory Results
09/02/24
07:03
Sodium 138
Potassium 4.5
Chloride 102
Carbon Dioxide 20 L
BUN 25 H
Creatinine 0.9
Glucose 118 H
Calcium 9.6
Vital Signs:
Vital Signs
Temp Pulse Resp BP Pulse Ox
97.8 F 75 18 116/84 97
09/01/24 23:13 09/02/24 04:10 09/01/24 23:13 09/02/24 04:10 09/01/24 23:13
I&O
09/01/24 09/02/24 09/03/24
06:59 06:59 06:59
Intake Total 240 / 240
Balance 240 / 240
Physical Exam
-
General: No Apparent Distress
HEENT: Normocephalic and Atraumatic
Respiratory: Negative Wheezes
Cardiac: Regular Rhythm and S1/S2
GI: Tender
Genito-urinary: No Costovertebral Tender
Neuro: AO x 3
Psych: Calm
Data Reviewed
-
Total Time Spent with Patient (in minutes): 42
Labs: Labs Reviewed by me
[2024-09-02 10:41] LABS: Glycohemoglobin (HgbA1c) 5.4 % (4.0-5.6)
[2024-09-02 11:53] LABS: Glucose - Point of Care 123 mg/dl (70-99)
--- NOTE | 2024-09-02 12:18 | PTCARENOTE ---
Patient with small amt yellow spit up this am. Was able to spit into tissue. Head of bed elevated. visiting at present . NPO at present.
[2024-09-02] MEDS: SINEMET 25-250 PO ×4 (13:11→23:00)
--- NOTE | 2024-09-02 13:39 | CM ---
CM reviewed chart, patient off floor, for OR today. CM spoke with patients , Lakeisha, to complete initial assessment. Per , patient resides in the home with and son. Home in multiple stories, one step to enter through garage, three steps
through front door, full flight of steps to bedroom. Patient uses a walker for ambulation, currently working with [facility] for PT/OT, works with speech through a telehealth agency- [employer]. Patient has not been to SNF in past. confirms patient
PCP Cece Jalloh, pharmacy [facility] in [place], confirms prescription coverage. would like patient to discharge to SNF, concerned with taking patient come. reports her mother is a LTC resident at [facility], would prefer
patient discharge to [facility] for short term rehab. reports patient worked for the [employer] for 25 years. Patient will require PT/OT evals when able, then will send referral. CM will continue to follow for all discharge planning needs.
Plan; OR today, requesting SNF, will send referral to [place] once patient evaluated by PT.
--- NOTE | 2024-09-02 15:16 | W.IMMPOSTOP ---
Surgical Immed Post Op Note
-
Primary Surgeon: Ervin
Assisting Surgeon: Alie PGY-1
Pre-op Diagnosis: Umbilical hernia
Post-op Diagnosis: Strangulated small bowel
Procedure Performed: Diagnostic laparoscopy, exploratory laparotomy, small bowel resection
Anesthesia Type: GETA
Specimen / Cultures: Small bowel
Estimated Blood Loss: 10cc
Complications: None immediate
Operative Findings: Emesis noted in preop and evidence of aspiration on intubation; hypotensive on induction requiring neosynephrine; diagnostic laparoscopy revealed patchy necrosis in a segment of small bowel and yellow creamy purulence without
perforation or evidence of enteric contents free in the abdomen; limited midline incision and affected small bowel exteriorized; 26cm small bowel resected and side-side stapled anastomosis performed; no pressor requirement at case conclusion
updated by phone
[2024-09-02 15:29] LABS: Glucose - Point of Care 143 mg/dl (70-99)
--- NOTE | 2024-09-02 15:32 | OR.RPT ---
Operative Report
Operative Report
Primary Surgeon: Ervin
Assisting Surgeon: Alie PGY-1
Pre-op Diagnosis: Umbilical hernia
Post-op Diagnosis: Strangulated small bowel
Procedure Performed: Diagnostic laparoscopy, exploratory laparotomy, small bowel resection
Anesthesia Type: GETA
Specimen / Cultures: Small bowel
Estimated Blood Loss: 10cc
Complications: None immediate
Operative Findings: Emesis noted in preop and evidence of aspiration on intubation; hypotensive on induction requiring neosynephrine; diagnostic laparoscopy revealed patchy necrosis in a segment of small bowel and yellow creamy purulence without
perforation or evidence of enteric contents free in the abdomen; limited midline incision and affected small bowel exteriorized; 26cm small bowel resected and side-side stapled anastomosis performed; no pressor requirement at case conclusion
Date of Surgery: 09/02/24
Indications: This 69M developed an incarcerated umbilical hernia. He was reduced at bedside in the emergency department and observed overnight. He had no issues overnight and plan was for robot assisted laparoscopic repair of umbilical hernia
today. He was noted to be vomiting in the preop area.
Description of procedure: The patient was placed on the operating table in the supine position. General anesthesia was induced. Anesthesia team noted evidence of aspiration during when he was intubated. A time-out was completed verifying correct
patient, procedure, site, positioning, and special equipment prior to beginning this procedure. An orogastric tube was placed. The abdomen was prepped and draped in the usual sterile fashion. A stab incision was made in left upper quadrant and the
Veress needle was inserted. Proper position was confirmed by aspiration and saline meniscus test. The abdomen was insufflated with carbon dioxide to a pressure of 12 mmHg. The patient tolerated insufflation well.
3 trocars were placed laterally at the left mid axillary line, the second two under direct vision, each a hand's breadth apart. The abdomen was inspected and no injuries from the veress needle nor trocars were identified. Initial diagnostic
laparoscopy revealed an area of dusky bowel and purulence with adherent omentum around the area that had been incarcerated. The decision was made to convert to exploratory laparotomy. A limited midline incision was made incorporating the umbilical
hernia. A small daniel wound protector was placed. The affected loop of small bowel was exteriorized. It was resected with a NENA stapler with purple loads and side-side anastomosis was created. The common channel was checked and hemostasis was
verified. A crotch stitch was placed and the mesenteric defect was closed. The abdomen was irrigated with sterile saline until effluent ran clear. The orogastric tube was swapped for a nasogastric tube. Omentum was draped over the bowel, the daniel
was removed and the fascia was closed with a running 0 PDS stratafix suture. The subcutaneous tissue was irrigated with sterile saline. Marcaine 0.5% with epinephrine was infiltrated into the fascia and subcutaneous tissues. The skin was closed with
bradley. The ports were removed and the skin closed with bradley. Dry gauze dressings for midline and bandaids for port sites were applied.
The patient tolerated the procedure well and was taken to the postanesthesia care unit in stable condition.
[2024-09-02] MEDS: DILAUDID 0.5 MG IV (15:48)
[2024-09-02] MEDS: ZOSYN IV (17:03)
[2024-09-02] MEDS: CRESTOR PO (17:40)
[2024-09-02] MEDS: LOW STRENGTH ASPIRIN PO (17:40)
[2024-09-02] MEDS: NSS 1000 IV (17:44)
--- NOTE | 2024-09-02 17:50 | PTCARENOTE ---
Rec'd pt from PACU. remains lethargic, arousable but mostly sleepy, Unable to give PO meds due to lethargy. vital signs stable. 98% on 2L NC. Bp stable. HR 87. family at bedside.
[2024-09-02 17:53] LABS: Glucose - Point of Care 150 mg/dl (70-99)
[2024-09-02] MEDS: NOVOLOG FLEXPEN-LOW RESISTANCE 1 UNITS SC (18:18)
--- NOTE | 2024-09-02 21:10 | PTCARENOTE ---
Pt becoming restless in bed. this RN entered Pts room seeing that the pt had ripped out his iv site. pt actively reaching for NGT. IV team called to place new iv site. ROSELINE made aware. order received for B/L UE mitts.
[2024-09-02] MEDS: NAMENDA PO (21:22)
[2024-09-02] MEDS: WELLBUTRIN SR (12 hour sustained release) PO (21:22)
[2024-09-02] MEDS: ARICEPT PO (21:23)
[2024-09-02] MEDS: ZESTRIL PO (21:23)
[2024-09-02] MEDS: ZOSYN 50 IV (22:01)
[2024-09-03] VITALS (50 sets, daily range): BP systolic 93–154; BP diastolic 53–118; PULSE 108; O2SAT 97; BMI 33.2
[2024-09-03 00:03] LABS: Glucose - Point of Care 151 mg/dl (70-99)
[2024-09-03] MEDS: NOVOLOG FLEXPEN-LOW RESISTANCE 1 UNITS SC (00:05)
[2024-09-03] MEDS: DILAUDID 0.5 MG IV ×2 (00:06→23:36)
[2024-09-03] MEDS: MAGNESIUM SULFATE 102 GRAMS IV (01:28)
[2024-09-03] MEDS: ZOSYN 50 IV ×4 (03:35→21:10)
--- NOTE | 2024-09-03 03:46 | W.PN.UPDATE ---
Update Note
Progress Note Update
Patient unable to take PO medications, skipped his Parkinson disease medications. RN reported patient being restless and unable to rest, restlessness likely due to his tremors, Will order IV magnesium x 1.
patient resting in bed at present, no more tremors noted by RN.
[2024-09-03 06:28] LABS: Glucose - Point of Care 121 mg/dl (70-99)
[2024-09-03] MEDS: NOVOLOG FLEXPEN-LOW RESISTANCE SC ×3 (06:30→18:09)
[2024-09-03 06:53] LABS: Blood Urea Nitrogen 29 mg/dl (9-20); Carbon Dioxide 26 mmol/L (22-30); Chloride 106 mmol/L (98-107); Estimated Creatinine Clearance 96 ml/min; Glucose 124 mg/dl (70-99); Potassium 4.5 mmol/L (3.5-5.1); Sodium 139 mmol/L (135-145); eGFR > 60.00
--- NOTE | 2024-09-03 07:25 | PTCARENOTE ---
Rec'd pt this AM. Removed mitt and attempting to reach NGT. Order obtained to add B/L wrist soft limp restraints. Pt educated, responds to Yes and No questions appropriately. Awake and alert.
[2024-09-03 07:34] LABS: Hematocrit 44.4 % (39.0-52.0); Hemoglobin 14.7 g/dL (13.0-18.0); Mean Corp Hgb Conc. 33.1 g/dL (33.0-37.0); Mean Corpuscular Hgb 32.2 pg (27.0-31.0); Mean Corpuscular Volume 97.2 fL (80.0-94.0); Mean Platelet Volume 11.1 fL (7.4-10.4); Platelet Count 162 10^3/uL (130-400); Red Blood Cell Count 4.57 10^6/uL (4.70-6.10); Red Cell Dist. Width 12.9 % (11.5-14.5); White Blood Cell Count 17.5 10^3/uL (4.8-10.8)
[2024-09-03] MEDS: SINEMET 25-250 PO (08:02)
[2024-09-03] MEDS: SINGULAIR PO (08:02)
[2024-09-03] MEDS: NAMENDA PO (08:02)
[2024-09-03] MEDS: WELLBUTRIN SR (12 hour sustained release) PO (08:03)
[2024-09-03] MEDS: ZYLOPRIM PO (08:03)
[2024-09-03] MEDS: ZOLOFT PO (08:03)
--- NOTE | 2024-09-03 08:03 | PTCARENOTE ---
Discussed oral meds with Dr. Mueller via TT. Pt order for NPO but OK for oral meds, however pt with NGT post op on low intermittent suction. Dr. Mueller prefers no oral meds today as NGT should not be clamped today
[2024-09-03] MEDS: HEPARIN 5000 UNITS SC ×2 (08:36→21:09)
[2024-09-03] MEDS: NSS 1000 IV (09:27)
[2024-09-03] MEDS: SINEMET 25-250 2 TABLET PO ×4 (09:29→21:10)
--- NOTE | 2024-09-03 09:59 | W.PN.GS2 ---
Today's Communication / Plan
-
`
Assessment / Plan
-
Assessment: 69-year-old male POD #1 status post DX L, ex lap and small bowel resection for an umbilical hernia with strangulated small bowel.
AFVSS
Overall doing satisfactorily postop
Postop leukocytosis likely reactive�monitor
Plan: Continue as needed Dilaudid, Ofirmev added for narcotic alternative as well
Maintain NG tube awaiting signs of postoperative GI recovery
Renew IV fluids
Continue Zosyn given operative findings of strangulated small bowel and small bowel resection as well as possible aspiration from emesis preop.
Discussed with hospitalist, okay to give oral Parkinson's meds and clamp NG tube for their administration
Heparin Sq for VTEp
Protonix for GIp with NGT in place
Subjective Data
-
Date of Service: September 03, 2024
Patient seen and examined. Discussed with nursing staff.
Utilizing soft restraints to reduce risk of inadvertent NG tube dislodgment.
The patient acknowledges abdominal pain.
Denies nausea.
Objective Data
-
Intake and Output
09/02/24 09/03/24 09/04/24
06:59 06:59 06:59
Intake Total 240 / 240 400 / 400 90 /
Output Total 200 / 200 75 / 75
Balance 240 / 240 200 / 200 15 / 15
Intake:
Oral fluids 240 / 240
IV fluids (Total) 400 / 400
Normosol 400 / 400
Amount instilled into GI Tube ( 90 / 90
Total)
[place] Sump 90 / 90
Output:
Gastrointestinal tube output ( 200 / 200 75 / 75
Total)
[place] Sump 200 / 200 75 / 75
Other:
How many times incontinent 1 2
MODERATE amount urine
How many times incontinent 1 2
SATURATED amount urine
Vital Signs
Temp Pulse Resp BP Pulse Ox
98.8 F 96 17 117/79 99
09/03/24 07:43 09/03/24 06:30 09/03/24 06:30 09/03/24 06:30 09/03/24 06:30
Lab Results
09/03/24 06:15
09/03/24 06:15
Calcium 9.0 mg/dl (8.4-10.2) 09/03/24 06:15
Total Bilirubin 1.0 mg/dl (0.2-1.3) 09/01/24 13:37
AST 21 U/L (17-59) 09/01/24 13:37
ALT 11 U/L (0-50) 09/01/24 13:37
Alkaline Phosphatase 86 U/L (38-126) 09/01/24 13:37
Total Protein 6.8 g/dl (6.3-8.2) 09/01/24 13:37
Albumin 4.2 g/dl (3.5-5.0) 09/01/24 13:37
Physical Exam
-
NAD AAO
ABD: Softly distended and mild tenderness at incision. Incision dressing in place and clean and dry.
NG tube in place gastric contents within canister. Modest output
Patient has a rowell catheter: No
--- NOTE | 2024-09-03 10:00 | W.PN.HOSP.TC ---
Today's Communication/Plan
-
continue IVF, while NG in place; monitor weights
ok for Parkinsons meds with NG clamped - hold all other meds
continue IV Abx per GS
Assessment / Plan
Assessment / Plan
Assessment:
Mechanical fall
- slid from bed to floor, landed on buttocks. no head trauma
- patient denies pain
- apply bed alarms and monitoring
Incarcerated umbilical hernia
- s/p reduction by GS in ER
- s/p Diagnostic laparoscopy, exploratory laparotomy, small bowel resection 09/02. OP note mentions diagnostic laparoscopy revealed patchy necrosis in a segment of small bowel and yellow creamy purulence without perforation or evidence of enteric
contents free in the abdomen.
- continue NG tube suction (ok to clamp briefly for Parkinsons meds - ok with GS service)
- continue IVF (Gentle rate with hx of CHF)
- continue Zosyn day 1
- pain control, anti-emetics
- follow GS recs
Chronic HFpEF
- hold Lasix, GEORGIANA
- monitor I/Os, weights, lytes
HLD - statin
Parkinson disease with dementia
- continue Sinemet (via NG tube clamps, see above)
- hold Donepezil, memantine
type 2 DM
- holding oral meds: glimepiride and Metformin
- SSI
- A1c 5.4%
CUATE
- not on CPAP at home
CKD stage 2 - monitor BMP
Obesity d/t excess calories
Depression - hold Zoloft/Wellbutrin
History of dilated aortic root
Gout
- hold allopurinol
Diverticulosis
History of asthma
- hold Singulair
DVT ppx: SC Heparin
Code: DNR/DNI
Anticipated Discharge: > 48 hours
Subjective/Interval History
-
Date of Service: September 03, 2024
resting comfortably, some tremors
NG remains in place
denies any complaints
Objective Data
-
Labs:
Laboratory Results
09/03/24
06:15
WBC 17.5 H
Hgb 14.7
Hct 44.4
Plt Count 162
Sodium 139
Potassium 4.5
Chloride 106
Carbon Dioxide 26
BUN 29 H
Creatinine 1.0
Glucose 124 H
Calcium 9.0
Vital Signs:
Vital Signs
Temp Pulse Resp BP Pulse Ox
98.8 F 96 17 117/79 99
09/03/24 07:43 09/03/24 06:30 09/03/24 06:30 09/03/24 06:30 09/03/24 06:30
I&O
09/02/24 09/03/24 09/04/24
06:59 06:59 06:59
Intake Total 240 / 240 400 / 400 90 / 90
Output Total 200 / 200 75 / 75
Balance 240 / 240 200 / 200 15 / 15
Physical Exam
-
General: No Apparent Distress
HEENT: Normocephalic, Atraumatic and Other (+ NG tube)
Respiratory: Negative Wheezes
Cardiac: Regular Rhythm and S1/S2
GI: Soft and Nontender
Musculoskeletal: No Edema
Neuro: AO x 3 and Tremors
Hematologic / Lymphatic: No Lymphadenopathy
Psych: Calm
Data Reviewed
-
Total Time Spent with Patient (in minutes): 45
Labs: Labs Reviewed by me
[2024-09-03] MEDS: OFIRMEV 100 IV ×3 (10:54→21:45)
[2024-09-03] MEDS: NSS (PRESERVATIVE FREE) 10 ML IV (12:13)
[2024-09-03] MEDS: PROTONIX IV 40 MG IV (12:13)
[2024-09-03 12:28] LABS: Glucose - Point of Care 100 mg/dl (70-99)
[2024-09-03] MEDS: NSS (PRESERVATIVE FREE) 0.25 ML IV (15:11)
[2024-09-03] MEDS: ATIVAN 0.5 MG IV (15:11)
[2024-09-03 17:13] LABS: Glucose - Point of Care 77 mg/dl (70-99)
[2024-09-03] MEDS: D5/0.9% SODIUM CHLORIDE 1000 IV (18:32)
[2024-09-04] VITALS (50 sets, daily range): BP systolic 101–157; BP diastolic 56–112; PULSE 63–67; O2SAT 100; BMI 33.3
--- NOTE | 2024-09-04 00:37 | PTCARENOTE ---
Pt confused. restraints in use as ordered. see intervention on worklist for documentation details. ROM preformed. HS oral care and CHG bath done. NGT maintained to low int suction and flushed q4 with 30 ml distilled water per order. q2t maintained.
Assessment as documented. safe environment maintained.
[2024-09-04 00:47] LABS: Glucose - Point of Care 76 mg/dl (70-99)
[2024-09-04] MEDS: NOVOLOG FLEXPEN-LOW RESISTANCE SC ×5 (00:58→23:54)
[2024-09-04] MEDS: ZOSYN 50 IV ×4 (04:05→21:08)
[2024-09-04] MEDS: OFIRMEV 100 IV ×4 (04:34→22:46)
[2024-09-04 04:53] LABS: Hematocrit 42.2 % (39.0-52.0); Mean Corp Hgb Conc. 33.2 g/dL (33.0-37.0); Mean Corpuscular Hgb 32.6 pg (27.0-31.0); Mean Corpuscular Volume 98.1 fL (80.0-94.0); Mean Platelet Volume 10.4 fL (7.4-10.4); Platelet Count 162 10^3/uL (130-400); Red Cell Dist. Width 12.8 % (11.5-14.5)
[2024-09-04 06:23] LABS: Glucose - Point of Care 77 mg/dl (70-99)
[2024-09-04 06:56] LABS: Blood Urea Nitrogen 28 mg/dl (9-20); Calcium 8.8 mg/dl (8.4-10.2); Carbon Dioxide 24 mmol/L (22-30); Chloride 107 mmol/L (98-107); Estimated Creatinine Clearance 107 ml/min; Glucose 85 mg/dl (70-99); Potassium 4.2 mmol/L (3.5-5.1); Sodium 138 mmol/L (135-145); eGFR > 60.00
[2024-09-04] MEDS: HEPARIN 5000 UNITS SC ×2 (09:07→20:02)
[2024-09-04] MEDS: SINEMET 25-250 2 TABLET PO ×4 (09:07→20:02)
[2024-09-04] MEDS: NSS (PRESERVATIVE FREE) 10 ML IV (09:07)
[2024-09-04] MEDS: PROTONIX IV 40 MG IV (09:07)
[2024-09-04] MEDS: D5/0.9% SODIUM CHLORIDE 1000 IV ×2 (09:20→23:56)
--- NOTE | 2024-09-04 09:27 | W.PN.GS2 ---
Addendum entered and electronically signed by Alden Banuelos MD 09/04/24 10:10:
Patient seen and examined. Agree with assessment plan as documented below.
Limited interactions. No reports of worsening abdominal pain per patient and nursing. No reports of bowel movements per nursing. NG tube output minimal over 48 hours.
Gen: NAD, stable altered MS at baseline
HEENT: NGT with minimal outputs
Abd: soft, obese, NT, ND, non-peritoneal, incision c/d/i - no erythema, ecchymosis or drainage, bradley in place
Patient is a 69 yo M p/w strangulated umbilical hernia with associated SBO
POD#2 s/p robotic converted to open primary umbilical hernia repair with SBR
AFVSS
Overall doing satisfactorily postop, difficult clinical eval given MS
Low to no output from NGT
Postop leukocytosis likely reactive, trending down
Plan:
-- Maintain NG tube, will clamp for today given minimal outputs and follow exam. Will remove tomorrow if doing well. Return to suction if develops nausea.
-- Continue as needed Dilaudid, Ofirmev
-- Renew IV fluids
-- Continue Zosyn given operative findings of strangulated small bowel and small bowel resection as well as possible aspiration from emesis preop.
-- OK for PO meds
-- DVT: Heparin Sq for VTEp
-- GI: Protonix for GIp with NGT in place
Original Note:
Today's Communication / Plan
-
Clamp NGT
Assessment / Plan
-
Assessment: 69-year-old male POD #2 status post DX L, ex lap and small bowel resection for an umbilical hernia with strangulated small bowel.
AFVSS
Overall doing satisfactorily postop
Low to no output from NGT
Postop leukocytosis likely reactive, trending down
Plan:
Continue as needed Dilaudid, Ofirmev
Maintain NG tube, will clamp through today and follow exam. Will remove tomorrow if doing well. Return to suction if develops nausea.
Renew IV fluids
Continue Zosyn given operative findings of strangulated small bowel and small bowel resection as well as possible aspiration from emesis preop.
OK for PO meds
Heparin Sq for VTEp
Protonix for GIp with NGT in place
Subjective Data
-
Date of Service: September 04, 2024
Patient seen and examined at bedside with Dr. Banuelos. Confused and restrained. Drifts off to sleep during exam. Offers no complaints.
Objective Data
-
Intake and Output
09/03/24 09/04/24 09/05/24
06:59 06:59 06:59
Intake Total 400 / 400 300 / 300
Output Total 200 / 200 635 / 635
Balance 200 / 200 -335 / -335
Intake:
IV fluids (Total) 400 / 400
Normosol 400 / 400
Amount instilled into GI Tube ( 300 / 300
Total)
[place] Sump 300 / 300
Output:
Gastrointestinal tube output ( 200 / 200 135 / 135
Total)
[place] Sump 200 / 200 135 / 135
Urine, Voided 500 / 500
Other:
How many times incontinent 2 1
MODERATE amount urine
How many times incontinent 2 3
SATURATED amount urine
Vital Signs
Temp Pulse Resp BP Pulse Ox
97.9 F 109 27 126/100 98
09/04/24 07:51 09/04/24 06:00 09/04/24 06:00 09/04/24 06:00 09/04/24 06:00
Lab Results
09/04/24 04:42
09/04/24 06:24
Calcium 8.8 mg/dl (8.4-10.2) 09/04/24 06:24
Total Bilirubin 1.0 mg/dl (0.2-1.3) 09/01/24 13:37
AST 21 U/L (17-59) 09/01/24 13:37
ALT 11 U/L (0-50) 09/01/24 13:37
Alkaline Phosphatase 86 U/L (38-126) 09/01/24 13:37
Total Protein 6.8 g/dl (6.3-8.2) 09/01/24 13:37
Albumin 4.2 g/dl (3.5-5.0) 09/01/24 13:37
Physical Exam
-
NAD, sleepy but arouses to light stimulation
ABD: Soft, ND, mild tenderness at incision. NGT with no output in canister.
Incision: intact bradley, some bloody drainage on dressing: changed. Port site with intact dressing
--- NOTE | 2024-09-04 10:06 | W.PN.HOSP.TC ---
Today's Communication/Plan
-
NG clamped
continue IV Abx
continue IVF
essential PO meds as appropriate
Assessment / Plan
Assessment / Plan
Assessment:
Mechanical fall
- slid from bed to floor, landed on buttocks. no head trauma
- patient denies pain
- apply bed alarms and monitoring
Incarcerated umbilical hernia
- s/p reduction by GS in ER
- s/p Diagnostic laparoscopy, exploratory laparotomy, small bowel resection 09/02. OP note mentions diagnostic laparoscopy revealed patchy necrosis in a segment of small bowel and yellow creamy purulence without perforation or evidence of enteric
contents free in the abdomen.
- continue NG tube; Clamped today (ok for Parkinsons meds - d/w with GS service)
- continue IVF (Gentle rate with hx of CHF) - decrease rate
- continue Zosyn day 2
- pain control, anti-emetics
- follow GS recs
Chronic HFpEF
- hold Lasix
- continue GEORGIANA
- monitor I/Os, weights, lytes
HLD - statin
Parkinson disease with dementia
- continue Sinemet (via NG tube clamps, see above)
- hold Donepezil, memantine
type 2 DM
- holding oral meds: glimepiride and Metformin
- SSI
- A1c 5.4%
CUATE
- not on CPAP at home
CKD stage 2 - monitor BMP
Obesity d/t excess calories
Depression - hold Zoloft/Wellbutrin
History of dilated aortic root
Gout
- hold allopurinol
Diverticulosis
History of asthma
- hold Singulair
DVT ppx: SC Heparin
Code: DNR/DNI
Anticipated Discharge: > 48 hours
Subjective/Interval History
-
Date of Service: September 04, 2024
no complaints
Objective Data
-
Labs:
Laboratory Results
09/04/24 09/04/24
04:42 06:24
WBC 12.0 H
Hgb 14.0
Hct 42.2
Plt Count 162
Sodium Cancelled 138
Potassium Cancelled 4.2
Chloride Cancelled 107
Carbon Dioxide Cancelled 24
BUN Cancelled 28 H
Creatinine Cancelled 0.9
Glucose Cancelled 85
Calcium Cancelled 8.8
Vital Signs:
Vital Signs
Temp Pulse Resp BP Pulse Ox
97.9 F 109 27 126/100 98
09/04/24 07:51 09/04/24 06:00 09/04/24 06:00 09/04/24 06:00 09/04/24 06:00
I&O
09/03/24 09/04/24 09/05/24
06:59 06:59 06:59
Intake Total 400 / 400 300 / 300
Output Total 200 / 200 635 / 635
Balance 200 / 200 -335 / -335
Physical Exam
-
General: No Apparent Distress
HEENT: Normocephalic and Atraumatic
Respiratory: Negative Wheezes
Cardiac: Regular Rhythm and S1/S2
GI: Soft and Nontender
Musculoskeletal: No Edema
Neuro: AO x 3
Psych: Calm
Data Reviewed
-
Total Time Spent with Patient (in minutes): 42
Labs: Labs Reviewed by me
--- NOTE | 2024-09-04 11:55 | PTCARENOTE ---
Assumed care of patient at beginning of this shift from previous RN. Surgery in to see patient this morning at approx 09:45 and changed surgical dressing. He ordered NGT clamped; patient has tolerated so far, no n/v. Lisinopril ordered to at HS. See
worklist for full assessment and vital signs. BP 107/69.
[2024-09-04 12:08] LABS: Glucose - Point of Care 71 mg/dl (70-99)
--- NOTE | 2024-09-04 14:16 | CM ---
CM reviewed chart, patient seen bedside, no family visiting at this time. Call to patients , Lakeisha, left voicemail regarding recommendation of Acute Rehab. Patient remains on IV antibiotics, IV fluids, on restraints. CM will continue to follow
for all discharge planning needs.
Plan; PT recommending acute rehab, voicemail left for to discuss
[2024-09-04 17:49] LABS: Glucose - Point of Care 78 mg/dl (70-99)
--- NOTE | 2024-09-04 19:12 | PTCARENOTE ---
During shift report patient set off bed alarm; when entering room patient's legs were over the side of the bed, b/l wrist restraints were in place. NGT was found to be out. Patient repositioned in bed. Dr Sanchez notified via TT; ok to leave NGT out
and give oral meds. Report given to oncoming shift.
[2024-09-04] MEDS: DILAUDID 1 MG IV (20:01)
[2024-09-04] MEDS: ZESTRIL PO (21:12)
[2024-09-04] MEDS: ATIVAN 0.5 MG IV (22:45)
[2024-09-04] MEDS: NSS (PRESERVATIVE FREE) 0.25 ML IV (22:45)
[2024-09-04] MEDS: MELATONIN 5 MG PO (22:55)
[2024-09-04] MEDS: DEXTROSE 50% SYRINGE 12.5 GRAMS IV (23:56)
[2024-09-05] VITALS (43 sets, daily range): BP systolic 86–132; BP diastolic 58–98; PULSE 62–80; BMI 33.5
[2024-09-05 00:03] LABS: Glucose - Point of Care 67 mg/dl (70-99)
--- NOTE | 2024-09-05 00:03 | PTCARENOTE ---
Addendum entered by Josey Dolan RN 09/05/24 04:34:
remains in b/l soft wrist restraints. Sinus maged overnight with frequent pacs and pvcs.
Original Note:
Patient agitated, attempting to jump out of bed, and yelling at staff. Non pharmacological interventions ineffective. call center receptionist provider made aware and ordered 1x dose ativan + melatonin. Patient given medications, bed bath, and appears to have calmed
down.
[2024-09-05 00:48] LABS: Glucose - Point of Care 103 mg/dl (70-99)
[2024-09-05 02:44] LABS: Glucose - Point of Care 79 mg/dl (70-99)
[2024-09-05] MEDS: OFIRMEV 100 IV (04:02)
[2024-09-05] MEDS: ZOSYN 50 IV ×4 (04:02→21:01)
[2024-09-05 04:33] LABS: Hematocrit 38.4 % (39.0-52.0); Hemoglobin 12.3 g/dL (13.0-18.0); Mean Corpuscular Hgb 31.7 pg (27.0-31.0); Mean Platelet Volume 10.3 fL (7.4-10.4); Platelet Count 154 10^3/uL (130-400); Red Blood Cell Count 3.88 10^6/uL (4.70-6.10); Red Cell Dist. Width 12.8 % (11.5-14.5)
[2024-09-05 05:01] LABS: Blood Urea Nitrogen 24 mg/dl (9-20); Calcium 8.4 mg/dl (8.4-10.2); Carbon Dioxide 24 mmol/L (22-30); Chloride 107 mmol/L (98-107); Estimated Creatinine Clearance 121 ml/min; Glucose 77 mg/dl (70-99); Potassium 3.8 mmol/L (3.5-5.1); Sodium 139 mmol/L (135-145); eGFR > 60.00
[2024-09-05] MEDS: NOVOLOG FLEXPEN-LOW RESISTANCE SC ×4 (05:27→22:22)
[2024-09-05 05:38] LABS: Glucose - Point of Care 71 mg/dl (70-99)
[2024-09-05] MEDS: HEPARIN 5000 UNITS SC ×2 (09:09→20:20)
[2024-09-05] MEDS: PROTONIX IV 40 MG IV (09:09)
[2024-09-05] MEDS: SINEMET 25-250 PO ×2 (09:10→12:15)
[2024-09-05] MEDS: NSS (PRESERVATIVE FREE) 10 ML IV (09:10)
[2024-09-05] MEDS: FLUSH (NSS) 2 FLUSH IV ×2 (09:20→10:57)
--- NOTE | 2024-09-05 09:58 | PTCARENOTE ---
Assumed care of patient at walking rounds, he is lethargic but arousable but groggy. Responds to b=name and tells me . SBradycardia on telemetry. Lungs diminished bilateral with pulse 0x 96% on room air. Abdomen obese with hypoactive bowel tones.
Midline abdominal dressing is CDI stabs sites CDI on LLQ. Grossly incontinent of urine. Hygiene provided, pt repositioned.
--- NOTE | 2024-09-05 11:44 | W.PN.GS2 ---
Addendum entered and electronically signed by Willie Sanchez MD 09/05/24 14:46:
Patient seen and examined in follow-up this afternoon.
Agree with documented progress note from nurse practitioner.
Patient reports postoperative incisional pain/discomfort that appears controlled
States he is hungry and requesting food
AFVSS
NAD AAO resting comfortably in hospital bed
ABD: Soft, nondistended, mild incisional tenderness
Incision with bradley. No erythema, no drainage, no open wounds
A/P: POD #3 status post ex lap, umbilical hernia repair with small bowel resection
Start clear liquid diet
Activities as tolerated
P.o. Parkinson meds
Zosyn day 3 of 5
Original Note:
Today's Communication / Plan
-
Clear liquids, ok for PO meds to be resumed
Assessment / Plan
-
Assessment: 69-year-old male POD #3 status post DX L, ex lap and small bowel resection for an umbilical hernia with strangulated small bowel.
AFVSS
Overall doing satisfactorily postop, difficult to fully assess given his baseline difficulty speaking and intermittent confusion
NGT clamped yesterday, accidentally dislodged overnight without n/v
No abdominal pain/distention
Postop leukocytosis likely reactive, resolved
Plan:
Continue as needed Dilaudid, Tylenol
OK to resume PO meds as medically appropriate
Clear liquids
PT/OT/AWS CONSULTANT to follow given Parkinson's history
Renew IV fluids
Continue Zosyn given operative findings of strangulated small bowel and small bowel resection as well as possible aspiration from emesis preop.
Heparin Sq for VTEp
Protonix for GIp
Subjective Data
-
Date of Service: September 05, 2024
Patient seen and examined at bedside. Denies n/v. Denies pain. Does not believe he is passing flatus or stools.
Objective Data
-
Intake and Output
09/04/24 09/05/24 09/06/24
06:59 06:59 06:59
Intake Total 300 / 300 50 / 50
Output Total 635 / 635
Balance -335 / -335 50 / 50
Intake:
IV piggybacks 50 / 50
Amount instilled into GI Tube ( 300 / 300
Total)
[place] Sump 300 / 300
Output:
Gastrointestinal tube output ( 135 / 135
Total)
[place] Sump 135 / 135
Urine, Voided 500 / 500
Other:
How many times incontinent 1
MODERATE amount urine
How many times incontinent 3 3 1
SATURATED amount urine
Vital Signs
Temp Pulse Resp BP Pulse Ox
97.2 F 68 15 128/63 97
09/05/24 07:00 09/05/24 07:00 09/05/24 07:00 09/05/24 07:00 09/05/24 09:56
Lab Results
09/05/24 03:58
09/05/24 03:58
Calcium 8.4 mg/dl (8.4-10.2) 09/05/24 03:58
Total Bilirubin 1.0 mg/dl (0.2-1.3) 09/01/24 13:37
AST 21 U/L (17-59) 09/01/24 13:37
ALT 11 U/L (0-50) 09/01/24 13:37
Alkaline Phosphatase 86 U/L (38-126) 09/01/24 13:37
Total Protein 6.8 g/dl (6.3-8.2) 09/01/24 13:37
Albumin 4.2 g/dl (3.5-5.0) 09/01/24 13:37
Physical Exam
-
NAD, calm
Masking of faces, difficulty speaking
ABD soft, nt, nd
Midline incision and port sites x3 with intact bradley, no erythema
[2024-09-05 11:45] LABS: Glucose - Point of Care 81 mg/dl (70-99)
--- NOTE | 2024-09-05 12:39 | W.PN.HOSP.TC ---
Today's Communication/Plan
-
prn Ativan
wean restraints
clears; IVF
resume PO meds
continue IV abx
Assessment / Plan
Assessment / Plan
Assessment:
Mechanical fall
- slid from bed to floor, landed on buttocks. no head trauma
- patient denies pain
- apply bed alarms and monitoring
Incarcerated umbilical hernia
- s/p reduction by GS in ER
- s/p Diagnostic laparoscopy, exploratory laparotomy, small bowel resection 09/02. OP note mentions diagnostic laparoscopy revealed patchy necrosis in a segment of small bowel and yellow creamy purulence without perforation or evidence of enteric
contents free in the abdomen.
- s/p NGT tube
- clears
- continue IVF (Gentle rate with hx of CHF) - decreased rate
- continue Zosyn day 3
- pain control, anti-emetics
- follow GS recs
Chronic HFpEF
- continue Lasix
- continue GEORGIANA
- monitor I/Os, weights, lytes
HLD - statin
Parkinson disease with dementia
- continue Sinemet (via NG tube clamps, see above)
- continue Donepezil, memantine
type 2 DM
- continue oral meds: glimepiride and Metformin
- SSI
- A1c 5.4%
CUATE
- not on CPAP at home
CKD stage 2 - monitor BMP
Obesity d/t excess calories
Depression - hold Zoloft/Wellbutrin
History of dilated aortic root
Gout
- hold allopurinol
Diverticulosis
History of asthma
- hold Singulair
DVT ppx: SC Heparin
Code: DNR/DNI
Anticipated Discharge: > 48 hours
Subjective/Interval History
-
Date of Service: September 05, 2024
NGT pulled out last evening
resting comfortably
Objective Data
-
Labs:
Laboratory Results
09/05/24
03:58
WBC 7.0
Hgb 12.3 L
Hct 38.4 L
Plt Count 154
Sodium 139
Potassium 3.8
Chloride 107
Carbon Dioxide 24
BUN 24 H
Creatinine 0.8
Glucose 77
Calcium 8.4
Vital Signs:
Vital Signs
Temp Pulse Resp BP Pulse Ox
98.3 F 68 15 128/63 97
09/05/24 11:00 09/05/24 07:00 09/05/24 07:00 09/05/24 07:00 09/05/24 09:56
I&O
09/04/24 09/05/24 09/06/24
06:59 06:59 06:59
Intake Total 300 / 300 50 / 50
Output Total 635 / 635
Balance -335 / -335 50 / 50
Physical Exam
-
General: No Apparent Distress
HEENT: Normocephalic
Respiratory: Negative Wheezes
Cardiac: Regular Rhythm and S1/S2
GI: Soft
Genito-urinary: No Costovertebral Tender
Neuro: AO x 3
Psych: Calm
Data Reviewed
-
Total Time Spent with Patient (in minutes): 44
Labs: Labs Reviewed by me
[2024-09-05] MEDS: SINEMET 25-250 2 TABLET PO ×3 (13:06→21:00)
[2024-09-05] MEDS: D5/0.9% SODIUM CHLORIDE 1000 IV (13:40)
--- NOTE | 2024-09-05 14:57 | PTCARENOTE ---
Ongoing care provided. Restraints removed and patient cooperative at this time. He does yell out at staff as he sees them passing by. He is alert and talking, speech is slow, clears started and pt does not show any signs of aspiration at this time.
OOB with PT. Sitting up in chair with chair alarm intact, at side. Pt in good mood at this time.
[2024-09-05] MEDS: LOW STRENGTH ASPIRIN 81 MG PO (17:20)
[2024-09-05] MEDS: CRESTOR 5 MG PO (17:20)
--- NOTE | 2024-09-05 18:27 | PTCARENOTE ---
OOB with therapy and returned to bed with 2 nursing staff. Pt rigid and has difficulty following directions, Hx of Parkinsons and tremors making it difficulty to take steps and keeps base gait wide. Frequent cues and very unsteady. guided safely to
bed, also difficulty bending to sit on bed
[2024-09-05 18:32] LABS: Glucose - Point of Care 84 mg/dl (70-99)
[2024-09-05] MEDS: ATIVAN 0.5 MG IV (19:40)
--- NOTE | 2024-09-05 19:44 | PTCARENOTE ---
Addendum entered by Emily Veliz RN 09/05/24 22:23:
pt continues to be agitated, restless, and confused. pt unable to understand situation. restraints applied for safety.
Original Note:
Patient setting off the bed alarm, attempting to get out of bed sliding to the edge. when asked where he was going pt stated to the BR. Pt became agitated when staff attempting to assist pt. PRN ativan given for agitation. pt placed back in bed.
re-oriented to place, time and situation. bed alarm set.
[2024-09-05] MEDS: ZESTRIL PO (20:16)
[2024-09-05] MEDS: WELLBUTRIN SR (12 hour sustained release) 150 MG PO (20:20)
[2024-09-05] MEDS: ARICEPT 10 MG PO (20:20)
[2024-09-05] MEDS: NAMENDA 10 MG PO (20:20)
[2024-09-05 22:15] LABS: Glucose - Point of Care 89 mg/dl (70-99)
[2024-09-06] VITALS (13 sets, daily range): BP systolic 109–147; BP diastolic 68–99; BMI 32.8
[2024-09-06] MEDS: ZOSYN 50 IV ×4 (03:46→22:57)
[2024-09-06 04:15] LABS: Hematocrit 39.3 % (39.0-52.0); Hemoglobin 13.1 g/dL (13.0-18.0); Mean Corp Hgb Conc. 33.3 g/dL (33.0-37.0); Mean Corpuscular Hgb 32.3 pg (27.0-31.0); Mean Platelet Volume 10.2 fL (7.4-10.4); Platelet Count 174 10^3/uL (130-400); Red Blood Cell Count 4.05 10^6/uL (4.70-6.10); Red Cell Dist. Width 12.4 % (11.5-14.5); White Blood Cell Count 6.8 10^3/uL (4.8-10.8)
[2024-09-06 04:34] LABS: Blood Urea Nitrogen 15 mg/dl (9-20); Calcium 8.7 mg/dl (8.4-10.2); Carbon Dioxide 26 mmol/L (22-30); Chloride 106 mmol/L (98-107); Estimated Creatinine Clearance > 125 ml/min; Glucose 65 mg/dl (70-99); Potassium 3.3 mmol/L (3.5-5.1); Sodium 140 mmol/L (135-145); eGFR > 60.00
[2024-09-06 05:55] LABS: Glucose - Point of Care 84 mg/dl (70-99)
[2024-09-06] MEDS: NOVOLOG FLEXPEN-LOW RESISTANCE SC ×4 (05:56→23:12)
[2024-09-06] MEDS: D5/0.9% SODIUM CHLORIDE 1000 IV (06:19)
--- NOTE | 2024-09-06 06:29 | PTCARENOTE ---
Patient awake all night, did not sleep. restless and confused. condom cath placed for grossly incont. Blood sugars WNL. pt only ate a small percentage of clear liquid dinner tray yesterday evening. pt able to swallow pills whole one at a time w/o
issues. pt moving self in bed frequently, attempting to get up. NSR/ST w/ frequent PACs/PVCs. Pt denies any pain; abd dressing changed, sutures intact, no drainage. Lap sites BG. bed alarm set. IVF continue per the MAR.
[2024-09-06] MEDS: SINGULAIR 10 MG PO (09:09)
[2024-09-06] MEDS: ZOLOFT 50 MG PO (09:09)
[2024-09-06] MEDS: WELLBUTRIN SR (12 hour sustained release) 150 MG PO ×2 (09:09→19:42)
[2024-09-06] MEDS: SINEMET 25-250 2 TABLET PO ×4 (09:09→22:46)
[2024-09-06] MEDS: KCL 40 MEQ PO (09:09)
[2024-09-06] MEDS: HEPARIN 5000 UNITS SC ×2 (09:10→19:42)
[2024-09-06] MEDS: ZYLOPRIM 300 MG PO (09:10)
[2024-09-06] MEDS: NSS (PRESERVATIVE FREE) 10 ML IV (09:10)
[2024-09-06] MEDS: PROTONIX IV 40 MG IV (09:10)
[2024-09-06] MEDS: NAMENDA 10 MG PO ×2 (09:10→19:42)
--- NOTE | 2024-09-06 10:01 | W.PN.GS2 ---
Addendum entered and electronically signed by Willie Sanchez MD 09/06/24 10:35:
Patient seen and examined in follow-up with surgical EFFICIENCY MINER. Agree with documented progress note.
Mr. Jenkins appears to be better postoperatively each morning
Smiling, pleasant with our discussions
Denies abdominal pain for the first time
No nausea; uncertain of flatus or BMs
AFVSS
ABD: Soft, nondistended, very minimal incisional tenderness alone. Incision with bradley.
A/P: POD #4 status post ex lap SBR and repair strangulated umbilical hernia
Full liquid diet
cap IV fluids
Day 4 of 5 of Zosyn postop
Original Note:
Today's Communication / Plan
-
Full liquids
Assessment / Plan
-
Assessment: 69-year-old male POD #4 status post DX L, ex lap and small bowel resection for an umbilical hernia with strangulated small bowel.
AFVSS
Overall doing satisfactorily postop, difficult to fully assess given his baseline difficulty speaking and intermittent confusion
Tolerating clears
Labs stable
Plan:
Continue as needed analgesics
FLD
PT/OT/ELEVATOR CONSTRUCTOR to follow given Parkinson's history
Ok to d/c IVF
Zosyn day 4 of 5
Heparin Sq for VTEp
Protonix for GIp
Subjective Data
-
Date of Service: September 06, 2024
Patient seen and examined at bedside with Dr. Sanchez. Denies n/v. Some pain but manageable. He thinks he may have had a BM but is unsure.
Objective Data
-
Intake and Output
09/05/24 09/06/24 09/07/24
06:59 06:59 06:59
Intake Total 1490 / 1490
Output Total 400 / 400
Balance 1490 / 1490 -400 / -400
Intake:
Oral fluids 500 / 500
IV fluids (Total) 840 / 840
IV piggybacks 150 / 150
Output:
Urine, Voided 400 / 400
Other:
How many times incontinent 1
MODERATE amount urine
How many times incontinent 3 2 1
SATURATED amount urine
Vital Signs
Temp Pulse Resp BP Pulse Ox
98.4 F 69 21 130/99 99
09/06/24 08:14 09/06/24 06:00 09/06/24 06:00 09/06/24 06:00 09/06/24 06:00
Lab Results
09/06/24 04:00
09/06/24 04:00
Calcium 8.7 mg/dl (8.4-10.2) 09/06/24 04:00
Total Bilirubin 1.0 mg/dl (0.2-1.3) 09/01/24 13:37
AST 21 U/L (17-59) 09/01/24 13:37
ALT 11 U/L (0-50) 09/01/24 13:37
Alkaline Phosphatase 86 U/L (38-126) 09/01/24 13:37
Total Protein 6.8 g/dl (6.3-8.2) 09/01/24 13:37
Albumin 4.2 g/dl (3.5-5.0) 09/01/24 13:37
Physical Exam
-
NAD, calm
ABD soft, minimal incisional tenderness, nd
Midline incision and port sites x3 with intact bradley, no erythema
[2024-09-06 11:39] LABS: Glucose - Point of Care 89 mg/dl (70-99)
--- NOTE | 2024-09-06 12:50 | W.PN.HOSP.TC ---
Today's Communication/Plan
-
continue full liquids, stop IVF
IV abx
follow GS recs
dc planning
Assessment / Plan
Assessment / Plan
Assessment:
Mechanical fall
- slid from bed to floor, landed on buttocks. no head trauma
- patient denies pain
- apply bed alarms and monitoring
Incarcerated umbilical hernia
- s/p reduction by GS in ER
- s/p Diagnostic laparoscopy, exploratory laparotomy, small bowel resection 09/02. OP note mentions diagnostic laparoscopy revealed patchy necrosis in a segment of small bowel and yellow creamy purulence without perforation or evidence of enteric
contents free in the abdomen.
- s/p NGT tube
- diet: full liquids.
- cap IVF
- continue Zosyn day 08/15
- pain control, anti-emetics
- follow GS recs
Chronic HFpEF
- continue Lasix
- continue GEORGIANA
- monitor I/Os, weights, lytes
HLD - statin
Parkinson disease with dementia
- continue Sinemet (via NG tube clamps, see above)
- continue Donepezil, memantine
type 2 DM
- continue oral meds: glimepiride and Metformin
- SSI
- A1c 5.4%
CUATE
- not on CPAP at home
CKD stage 2 - monitor BMP
Obesity d/t excess calories
Depression - hold Zoloft/Wellbutrin
History of dilated aortic root
Gout
- hold allopurinol
Diverticulosis
History of asthma
- hold Singulair
DVT ppx: SC Heparin
Code: DNR/DNI
Anticipated Discharge: > 48 hours
Subjective/Interval History
-
Date of Service: September 06, 2024
tolerating clears
Objective Data
-
Labs:
Laboratory Results
09/06/24
04:00
WBC 6.8
Hgb 13.1
Hct 39.3
Plt Count 174
Sodium 140
Potassium 3.3 L
Chloride 106
Carbon Dioxide 26
BUN 15
Creatinine 0.7
Glucose 65 L
Calcium 8.7
Vital Signs:
Vital Signs
Temp Pulse Resp BP Pulse Ox
98.0 F 76 20 119/83 97
09/06/24 11:00 09/06/24 12:00 09/06/24 12:00 09/06/24 12:00 09/06/24 11:02
I&O
09/05/24 09/06/24 09/07/24
06:59 06:59 06:59
Intake Total 1490 / 1490
Output Total 550 / 550
Balance 1490 / 1490 -550 / -550
Physical Exam
-
General: No Apparent Distress
HEENT: Normocephalic and Atraumatic
Respiratory: Negative Wheezes
Cardiac: Regular Rhythm and S1/S2
GI: Soft and Nontender
Musculoskeletal: No Edema
Neuro: AO x 3
Psych: Calm
Data Reviewed
-
Total Time Spent with Patient (in minutes): 41
Labs: Labs Reviewed by me
[2024-09-06] MEDS: NSS (PRESERVATIVE FREE) 0.25 ML IV (14:40)
[2024-09-06] MEDS: ATIVAN 0.5 MG IV (14:40)
--- NOTE | 2024-09-06 16:16 | PTCARENOTE ---
Assumed care of patient at beginning of this shift with b/l soft wrist restraints/4 siderails and b/l mitts in place. Patient remains confused and has tried to put legs over the side of the bed; he also attempts to remove telemetry wires and IV.
Family in to visit; mitts able to be removed at that time. This afternoon patient looked a little flushed; afebrile. stated that he gets frequent UTIs. Patient incontinent large amount of urine; bladder scan 0. She also felt he is more
confused/restless today; ativan given as per prn order. Reviewed all with Dr Wellington via TT; he came up to see patient and speak with . Ativan frequency decreased, urinalysis ordered. See worklist for full assessment and vital signs. Family
remains at bedside.
[2024-09-06] MEDS: CRESTOR 5 MG PO (17:28)
[2024-09-06 17:35] LABS: Glucose - Point of Care 85 mg/dl (70-99)
[2024-09-06] MEDS: LOW STRENGTH ASPIRIN 81 MG PO (17:36)
--- NOTE | 2024-09-06 20:52 | PTCARENOTE ---
Report called to Anita 2S RN. Patient's belongings packed and brought with pt to room 2105. Transported via bed with tele monitor.
--- NOTE | 2024-09-06 21:00 | PTCARENOTE ---
Pt. received from IMU via bed, surgical sites inspected with off-going IMU nurse at bedside. Pt. oriented to himself, fixated at the ceiling, but answers simple questions appropriately. Restraints kept in place, VSS, bed locked and in lowest
position, side rails in place, and call light placed in pt's hand.
[2024-09-06 22:42] LABS: Glucose - Point of Care 72 mg/dl (70-99)
[2024-09-06] MEDS: ZESTRIL 20 MG PO (22:47)
[2024-09-06] MEDS: ARICEPT 10 MG PO (22:51)
[2024-09-07] VITALS (8 sets, daily range): BP systolic 99–143; BP diastolic 59–86; PULSE 67–69; O2SAT 97–98; BMI 32.7
[2024-09-07] MEDS: NSS (PRESERVATIVE FREE) 0.25 ML IV (02:12)
[2024-09-07] MEDS: ATIVAN 0.5 MG IV ×2 (02:12→20:20)
[2024-09-07] MEDS: ZOSYN 50 IV ×4 (03:40→21:46)
[2024-09-07] MEDS: NOVOLOG FLEXPEN-LOW RESISTANCE SC (06:41)
[2024-09-07 08:09] LABS: Glucose - Point of Care 78 mg/dl (70-99)
[2024-09-07] MEDS: SINEMET 25-250 2 TABLET PO ×2 (08:20→13:46)
[2024-09-07] MEDS: NAMENDA 10 MG PO ×2 (08:20→20:19)
[2024-09-07] MEDS: WELLBUTRIN SR (12 hour sustained release) 150 MG PO ×2 (08:20→20:19)
[2024-09-07] MEDS: ZOLOFT 50 MG PO (08:20)
[2024-09-07] MEDS: SINGULAIR 10 MG PO (08:20)
[2024-09-07] MEDS: PROTONIX IV 40 MG IV (08:20)
[2024-09-07] MEDS: ZYLOPRIM 300 MG PO (08:20)
[2024-09-07] MEDS: NSS (PRESERVATIVE FREE) 10 ML IV (08:21)
[2024-09-07] MEDS: HEPARIN 5000 UNITS SC ×2 (08:23→21:45)
[2024-09-07] MEDS: LASIX 20 MG PO (08:24)
[2024-09-07 08:53] LABS: Hematocrit 42.5 % (39.0-52.0); Hemoglobin 14.4 g/dL (13.0-18.0); Mean Corp Hgb Conc. 33.9 g/dL (33.0-37.0); Mean Corpuscular Hgb 32.1 pg (27.0-31.0); Mean Corpuscular Volume 94.7 fL (80.0-94.0); Platelet Count 198 10^3/uL (130-400); Red Blood Cell Count 4.49 10^6/uL (4.70-6.10); Red Cell Dist. Width 12.6 % (11.5-14.5); White Blood Cell Count 8.5 10^3/uL (4.8-10.8)
[2024-09-07 09:36] LABS: Blood Urea Nitrogen 15 mg/dl (9-20); Calcium 8.7 mg/dl (8.4-10.2); Carbon Dioxide 24 mmol/L (22-30); Chloride 104 mmol/L (98-107); Estimated Creatinine Clearance 119 ml/min; Glucose 78 mg/dl (70-99); Sodium 139 mmol/L (135-145); eGFR > 60.00
--- NOTE | 2024-09-07 09:45 | PTCARENOTE ---
At 0930, after bathing patient, patient removed from all restraints. Patient remains calm. Not attempting to climb out of bed or pull at any tubes at this time. Bed alarm on. Patient close to nurses station.
--- NOTE | 2024-09-07 09:47 | CM ---
CM reviewed medical records. Patient has been recommended for Acute Rehab. CM requested update on acceptance from [facility]. CM will remain available.
PLAN: Acute rehab acceptance pending.
--- NOTE | 2024-09-07 10:18 | W.PN.GS2 ---
Today's Communication / Plan
-
Advance diet as per RECORD PRESS SUPERVISOR recs
Assessment / Plan
-
Assessment: 69-year-old male POD #5 status post DX L, ex lap and small bowel resection for an umbilical hernia with strangulated small bowel.
AFVSS
Overall doing satisfactorily postop, difficult to fully assess given his baseline difficulty speaking and intermittent confusion
No BM's yet, abdominal exam reassuring without distention present
Tolerating fulls
Labs stable
Plan:
Continue as needed analgesics
Await RECORD PRESS SUPERVISOR eval prior to advancing to solid diet, FLD for now
PT/OT/RECORD PRESS SUPERVISOR to follow given Parkinson's history
Zosyn day 5 of 5
Resume home dose of miralax
Heparin Sq for VTEp
Protonix for GI ppx
Case management following, patient previously from home with spouse and will likely need rehab/snf upon discharge
Subjective Data
-
Date of Service: September 07, 2024
Patient seen and examined at bedside with Dr. Clarke. He denies n/v. Unsure if he has been passing flatus. States he feels 'worse' today. Some abdominal pain.
Objective Data
-
Intake and Output
09/06/24 09/07/24 09/08/24
06:59 06:59 06:59
Intake Total 1490 / 1490
Output Total 550 / 550
Balance 1490 / 1490 -550 / -550
Intake:
Oral fluids 500 / 500
IV fluids (Total) 840 / 840
IV piggybacks 150 / 150
Output:
Urine, Voided 550 / 550
Other:
How many times incontinent 1 1
MODERATE amount urine
How many times incontinent 2 1 1
SATURATED amount urine
Vital Signs
Temp Pulse Resp BP Pulse Ox
98.1 F 66 20 142/84 100
09/07/24 08:05 09/07/24 08:05 09/07/24 08:05 09/07/24 08:24 09/07/24 08:05
Lab Results
09/07/24 08:14
09/07/24 08:15
Calcium 8.7 mg/dl (8.4-10.2) 09/07/24 08:15
Total Bilirubin 1.0 mg/dl (0.2-1.3) 09/01/24 13:37
AST 21 U/L (17-59) 09/01/24 13:37
ALT 11 U/L (0-50) 09/01/24 13:37
Alkaline Phosphatase 86 U/L (38-126) 09/01/24 13:37
Total Protein 6.8 g/dl (6.3-8.2) 09/01/24 13:37
Albumin 4.2 g/dl (3.5-5.0) 09/01/24 13:37
Physical Exam
-
NAD, calm
ABD soft, minimal incisional tenderness, nd
Midline incision and port sites x3 with intact bradley, no erythema
--- NOTE | 2024-09-07 11:02 | CM ---
CM reviewed medical records. [facility] at [facility] has declined Acute Rehab. Patient's expressed preference for [facility]. CM sent referral via [facility] for consideration.
PLAN: SNF, pending acceptance by [facility].
--- NOTE | 2024-09-07 11:58 | PTOTSP ---
Speech Therapy Evaluation:
Pt presents with signs concerning for oropharyngeal dysphagia, likely chronic related to hx of Parkinson's, Dementia, asthma, and CHF, acutely compounded by intermittent confusion/delirium. Mild oral phase impairments evident. No overt s/sx of
aspiration observed throughout trials, however cannot r/o silent aspiration given predisposing risk factors and limitations at bedside. Pt currently afebrile, WBC WNL, and on room air. CXR without c/f PNA. Unable to complete 3oz swallow screen given
mentation/decreased direction following.
Recommend:
1. Initiate IDDSI Level 6 (soft and bite sized solids) and thin liquids
2. Medications as tolerated
3. FULL assistance and supervision with PO intake
4. STRICT aspiration precautions
5. D/c oral diet if concerned for aspiration
6. CAKE STRIPPER to follow to monitor tolerance of diet (suspect IDDSI 6 closest to baseline diet) and determine if pt would benefit from instrumental assessment
[2024-09-07 11:59] LABS: Urine Albumin 1+ (Neg - Trace); Urine Bilirubin Negative (Negative); Urine Character Clear (Clear); Urine Color Yellow; Urine Glucose Negative (Negative); Urine Ketone 2+ (Negative); Urine Leukocyte Negative (Negative); Urine Nitrite Negative (Negative); Urine Occult Blood Negative (Negative); Urine Specific Gravity 1.015 (<1.030); Urine Urobilinogen 2+ (Neg - 1+); Urine pH 6.5 (5.0-9.0)
[2024-09-07 12:37] LABS: Glucose - Point of Care 122 mg/dl (70-99)
[2024-09-07 12:38] LABS: Urine Mucus Moderate
[2024-09-07 12:39] LABS: Urine Amorphous Seen; Urine Hyaline Cast 0-2 /LPF (0-2); Urine Squamous Cell 16-20 /LPF (Few)
[2024-09-07 12:40] LABS: Urine Bacteria Few (Negative)
--- NOTE | 2024-09-07 13:38 | CM ---
Addendum entered by Kristel Taveras RN 09/07/24 13:58:
CM spoke with and she remains insistent on Acute Rehab. CM sent request for reconsideration by James.
Original Note:
CM sent additional referrals to [facility] and [facility].
PLAN: Acute rehab vs. SNF
--- NOTE | 2024-09-07 15:07 | W.PN.HOSP.TC ---
Today's Communication/Plan
-
Last day of IV antibiotics
Continue analgesics and antiemetics
Soft and bite-size diet, advance per SKIVER BLOCKERS
Resume home Ritalin
Reevaluation for acute rehab
Discharge planning
Assessment / Plan
Assessment / Plan
#Incarcerated umbilical hernia
- s/p reduction by GS in ER, and NGT tube; S/P IVF
- s/p Diagnostic laparoscopy, exploratory laparotomy, small bowel resection 09/02.
- OP note mentions diagnostic laparoscopy revealed patchy necrosis in a segment of small bowel and yellow creamy purulence without perforation or evidence of enteric contents free in the abdomen.
- diet: Soft and bite-size, advance per SKIVER BLOCKERS
- continue Zosyn day 09/14
- pain control, anti-emetics
- follow GS recs
#Chronic HFpEF
- continue Lasix
- continue GEORGIANA
- monitor I/Os, weights, lytes
#HLD
- No known ASCVD history, c/w statin
#Parkinson disease with dementia
- continue Sinemet (via NG tube clamps, see above)
- continue Donepezil, memantine, AC Ritalin
#NIDDM 2
- continue oral meds: glimepiride and Metformin
- SSI
- A1c 5.4%
#CUATE
- not on CPAP at home
- no known association with group 3 pHTN
#CKD stage 2-3
- monitor BMP
#Obesity d/t excess calories
- BMI 33
- Affects all aspects of care
#Depression
- hold Zoloft/Wellbutrin
#History of dilated aortic root
- Will need to follow up OP for TTE monitoring
#Gout
- c/w allopurinol
#Diverticulosis
#History of asthma
- hold Singulair
- PRN bronchodilators
DVT ppx: SC Heparin
Diet: Soft and bite-size, SKIVER BLOCKERS follow
Code: DNR/DNI
Anticipated Discharge: 24 - 48 hours
Subjective/Interval History
-
Date of Service: September 07, 2024
Seen and examined at bedside. No acute events reported overnight. AFVSS this morning
Labs currently stable. Tolerating full liquid diet. On day 09/14 of IV antibiotics
Denies any new complaints as of this morning
Objective Data
-
Labs:
Laboratory Results
09/07/24 09/07/24
08:14 08:15
WBC 8.5
Hgb 14.4
Hct 42.5
Plt Count 198
Sodium 139
Potassium 4.0
Chloride 104
Carbon Dioxide 24
BUN 15
Creatinine 0.8
Glucose 78
Calcium 8.7
Vital Signs:
Vital Signs
Temp Pulse Resp BP Pulse Ox
98.0 F 73 18 105/60 98
09/07/24 12:08 09/07/24 12:08 09/07/24 12:08 09/07/24 12:08 09/07/24 12:08
I&O
09/06/24 09/07/24 09/08/24
06:59 06:59 06:59
Intake Total 1490 / 1490
Output Total 550 / 550
Balance 1490 / 1490 -550 / -550
Review of Systems
-
History Source: Patient
All other systems: Reviewed and negative
Physical Exam
-
General: Well Developed, No Apparent Distress, Comfortable and Obese
HEENT: Normocephalic, Atraumatic, Moist Mucous Membranes and Anicteric
Respiratory: Clear to Auscultation and Non Labored Respirations; Negative Accessory Resp Muscle Use
Cardiac: Regular Rhythm and S1/S2; Negative Murmur, Rub, JVD or Gallop
GI: Soft, Nontender, Nondistended and Normal Bowel Sounds
Musculoskeletal: No Clubbing, No Cyanosis and No Edema
Neuro: AO x 3, Tremors and Nonfocal/Grossly Intact
Psych: Calm
Data Reviewed
-
Labs: Labs Reviewed by me, Discussed with Patient and Discussed with Family
[2024-09-07] MEDS: SINEMET 25-250 1 TABLET PO ×2 (16:59→20:19)
[2024-09-07] MEDS: RITALIN 10 MG PO (16:59)
[2024-09-07] MEDS: LOW STRENGTH ASPIRIN 81 MG PO (16:59)
[2024-09-07] MEDS: CRESTOR 5 MG PO (16:59)
[2024-09-07 17:28] LABS: Glucose - Point of Care 104 mg/dl (70-99)
[2024-09-07] MEDS: ARICEPT 10 MG PO (20:19)
[2024-09-07] MEDS: MIRALAX 17 GRAMS PO (21:46)
[2024-09-07] MEDS: ZESTRIL 20 MG PO (21:46)
[2024-09-07 21:50] LABS: Glucose - Point of Care 97 mg/dl (70-99)
[2024-09-08] VITALS (8 sets, daily range): BP systolic 95–144; BP diastolic 51–89; PULSE 70; O2SAT 97; BMI 32.3
[2024-09-08] MEDS: ZOSYN 50 IV (04:07)
--- NOTE | 2024-09-08 05:15 | PTCARENOTE ---
pt had 14 beats of V-tach, DIESEL MAINTENANCE ELECTRICIAN made aware.
--- NOTE | 2024-09-08 05:30 | PTCARENOTE ---
am labs ordered w mag
[2024-09-08 07:29] LABS: Hematocrit 45.3 % (39.0-52.0); Hemoglobin 15.1 g/dL (13.0-18.0); Mean Corp Hgb Conc. 33.3 g/dL (33.0-37.0); Mean Corpuscular Hgb 31.9 pg (27.0-31.0); Mean Corpuscular Volume 95.8 fL (80.0-94.0); Platelet Count 222 10^3/uL (130-400); Red Blood Cell Count 4.73 10^6/uL (4.70-6.10); Red Cell Dist. Width 12.7 % (11.5-14.5); White Blood Cell Count 8.1 10^3/uL (4.8-10.8)
--- NOTE | 2024-09-08 07:44 | W.PN.GS2 ---
Today's Communication / Plan
-
-- No changes from surgical perspective
-- Dispo planning
Assessment / Plan
-
Assessment: 69-year-old male p/w strangulated umbilical hernia
POD #6 status post DX L, ex lap and small bowel resection for an umbilical hernia with strangulated small bowel.
AFVSS
Labs stable, BMP pending
Overall doing satisfactorily postop, difficult to fully assess given his baseline difficulty speaking and intermittent confusion. Tolerating IDDM
Plan:
-- Diet per IRON PILER
-- pain control: Tylenol, OK for Toradol if needed
-- PT/OT/IRON PILER to follow given Parkinson's history
-- Abx: completed Zosyn 09/14
-- Resume home dose of miralax
-- DVT: Heparin Sq for VTEp
-- GI: Protonix
Case management following, patient previously from home with spouse and will likely need rehab/snf upon discharge
Subjective Data
-
Date of Service: September 08, 2024
No complaints. No issues per report from nursing. No reports of nausea or vomiting. Difficult to assess passing flatus or BMs. Minimal PO intake.
Objective Data
-
Intake and Output
09/07/24 09/08/24 09/09/24
06:59 06:59 06:59
Intake Total 220 / 220
Output Total 550 / 550
Balance -550 / -550 220 / 220
Intake:
Oral fluids 120 / 120
IV piggybacks 100 / 100
Output:
Urine, Voided 550 / 550
Other:
How many times incontinent 1 2
MODERATE amount urine
How many times incontinent 1 5 3
SATURATED amount urine
Vital Signs
Temp Pulse Resp BP Pulse Ox
97.4 F 66 16 142/87 96
09/08/24 03:15 09/08/24 03:15 09/08/24 03:15 09/08/24 03:15 09/08/24 03:15
Lab Results
09/08/24 06:43
Calcium 8.7 mg/dl (8.4-10.2) 09/07/24 08:15
Total Bilirubin 1.0 mg/dl (0.2-1.3) 09/01/24 13:37
AST 21 U/L (17-59) 09/01/24 13:37
ALT 11 U/L (0-50) 09/01/24 13:37
Alkaline Phosphatase 86 U/L (38-126) 09/01/24 13:37
Total Protein 6.8 g/dl (6.3-8.2) 09/01/24 13:37
Albumin 4.2 g/dl (3.5-5.0) 09/01/24 13:37
Physical Exam
-
Gen: NAD
Abd: soft, obese, NT/MD, incision c/d/i - no erythema, ecchymosis or drainage, bradley in place
Patient has a rowell catheter: No
Patient has a central line: No
[2024-09-08 08:06] LABS: Blood Urea Nitrogen 14 mg/dl (9-20); Calcium 9.1 mg/dl (8.4-10.2); Carbon Dioxide 28 mmol/L (22-30); Chloride 102 mmol/L (98-107); Estimated Creatinine Clearance 105 ml/min; Glucose 86 mg/dl (70-99); Magnesium 2.1 mg/dl (1.6-2.3); Sodium 141 mmol/L (135-145); eGFR > 60.00
[2024-09-08 08:23] LABS: Glucose - Point of Care 99 mg/dl (70-99)
--- NOTE | 2024-09-08 09:18 | CM ---
CM reviewed medical records. CM spoke with Lore at [facility] to update. CM will confirm patent's mental status.
--- NOTE | 2024-09-08 09:40 | CM ---
Addendum entered by Kristel Taveras RN 09/08/24 11:16:
[facility] acute rehab has declined. Lore at [facility] is requesting that patient's behaviors be more under control prior to transfer. CHRISTY updated hospitalist with discharge planning barriers.
Addendum entered by Kristel Taveras RN 09/08/24 10:33:
[facility]
Original Note:
CHRISTY was updated by nursing that patient remains confused and has been attempting to climb out of bed. He also has been removing medical devices and 'picking' at this wound. CHRISTY updated Lore at [facility] and she is unable to accomodate his needs
at this time. [facility] will accept once behaviors are under control.
CHRISTY updated hospitalist.
PLAN: SNF
[2024-09-08] MEDS: ZOLOFT 50 MG PO (09:51)
[2024-09-08] MEDS: ZYLOPRIM 300 MG PO (09:52)
[2024-09-08] MEDS: NAMENDA 10 MG PO ×2 (09:52→20:00)
[2024-09-08] MEDS: SINEMET 25-250 1 TABLET PO ×4 (09:52→21:59)
[2024-09-08] MEDS: PROTONIX 40 MG PO (09:52)
[2024-09-08] MEDS: WELLBUTRIN SR (12 hour sustained release) 150 MG PO ×2 (09:52→20:00)
[2024-09-08] MEDS: SINGULAIR 10 MG PO (09:52)
[2024-09-08] MEDS: RITALIN 10 MG PO ×3 (09:52→18:33)
[2024-09-08] MEDS: HEPARIN 5000 UNITS SC ×2 (09:53→20:01)
--- NOTE | 2024-09-08 12:03 | W.PN.HOSP.TC ---
Today's Communication/Plan
-
As needed Seroquel
Delirium precautions
Optimize natural lighting
Frequent redirection
Assessment / Plan
Assessment / Plan
#Incarcerated umbilical hernia
- s/p reduction by GS in ER, and NGT tube; S/P IVF
- s/p Diagnostic laparoscopy, exploratory laparotomy, small bowel resection 09/02.
- OP note mentions diagnostic laparoscopy revealed patchy necrosis in a segment of small bowel and yellow creamy purulence without perforation or evidence of enteric contents free in the abdomen.
- diet: Soft and bite-size, advance per [employer]
- continue Zosyn day 09/14
- pain control, anti-emetics
- follow GS recs
#Encephalopathy
- Suspected hospital delirium superimposed on dementia, noted to have confusion and tried climbing out of bed on evening of 09/07
- As of morning 09/08 remains confused though no signs of significant agitation
- Will start delirium precautions, try to optimize natural lighting, frequent redirection
- Order Seroquel 25 mg as needed at 1900 for agitation/ing
#Chronic HFpEF
- continue Lasix
- continue ACEi
- monitor I/Os, weights, lytes
#HLD
- No known ASCVD history, c/w statin
#Parkinson disease with dementia
- continue Sinemet
- continue Donepezil, memantine, AC Ritalin
#NIDDM 2
- continue oral meds: glimepiride and Metformin
- SSI
- A1c 5.4%
#CUATE
- not on CPAP at home
- no known association with group 3 pHTN
#CKD stage 2-3
- monitor BMP
#Obesity d/t excess calories
- BMI 33
- Affects all aspects of care
#Depression
- hold Zoloft/Wellbutrin
#History of dilated aortic root
- Will need to follow up OP for TTE monitoring
#Gout
- c/w allopurinol
#Diverticulosis
#History of asthma
- hold Singulair
- PRN bronchodilators
DVT ppx: SC Heparin
Diet: Soft and bite-size
Code: DNR/DNI
Anticipated Discharge: 24 - 48 hours
Subjective/Interval History
-
Date of Service: September 08, 2024
Seen and examined at the bedside. Overnight was noted to have some confusion and tried to climb out of his bed. AFVSS as of this morning. Mental status seems slightly improved though still confused
Labs are otherwise stable. Was resumed on his home Ritalin regimen yesterday.
ROS limited by his mental state
Objective Data
-
Labs:
Laboratory Results
09/08/24
06:43
WBC 8.1
Hgb 15.1
Hct 45.3
Plt Count 222
Sodium 141
Potassium 4.0
Chloride 102
Carbon Dioxide 28
BUN 14
Creatinine 0.9
Glucose 86
Calcium 9.1
Vital Signs:
Vital Signs
Temp Pulse Resp BP Pulse Ox
98.5 F 67 18 144/89 97
09/08/24 07:45 09/08/24 07:45 09/08/24 07:45 09/08/24 07:45 09/08/24 09:47
I&O
09/07/24 09/08/24 09/09/24
06:59 06:59 06:59
Intake Total 220 / 220 180 / 180
Output Total 550 / 550
Balance -550 / -550 220 / 220 180 / 180
Review of Systems
-
Unable to obtain full review of systems at this time due to: Dementia and Acuity
Physical Exam
-
General: Well Developed, No Apparent Distress, Appears Chronically Ill and Obese
HEENT: Normocephalic, Atraumatic, Moist Mucous Membranes and Anicteric
Respiratory: Clear to Auscultation and Non Labored Respirations; Negative Accessory Resp Muscle Use
Cardiac: Regular Rhythm and S1/S2; Negative Murmur, Rub or Gallop
GI: Soft, Nontender, Nondistended and Normal Bowel Sounds
Musculoskeletal: No Clubbing, No Cyanosis and No Edema
Skin: Warm, Dry and Normal Turgor; Negative Rash
Neuro: Awake, Alert, Tremors and Nonfocal/Grossly Intact; Negative Oriented
Psych: Calm
Data Reviewed
-
Labs: Labs Reviewed by me and Discussed with Patient
[2024-09-08 12:07] LABS: Glucose - Point of Care 98 mg/dl (70-99)
[2024-09-08 16:55] LABS: Glucose - Point of Care 133 mg/dl (70-99)
[2024-09-08] MEDS: LOW STRENGTH ASPIRIN 81 MG PO (18:33)
[2024-09-08] MEDS: CRESTOR 5 MG PO (18:33)
[2024-09-08] MEDS: ARICEPT 10 MG PO (21:59)
[2024-09-08] MEDS: ZESTRIL PO (21:59)
[2024-09-08] MEDS: MIRALAX 17 GRAMS PO (21:59)
[2024-09-08 22:02] LABS: Glucose - Point of Care 92 mg/dl (70-99)
[2024-09-09] VITALS (8 sets, daily range): BP systolic 113–128; BP diastolic 66–81; PULSE 65–71; O2SAT 97; BMI 32.1
[2024-09-09 07:05] LABS: Glucose - Point of Care 65 mg/dl (70-99)
[2024-09-09 07:39] LABS: Glucose - Point of Care 98 mg/dl (70-99)
[2024-09-09] MEDS: SINEMET 25-250 1 TABLET PO ×4 (09:16→20:58)
[2024-09-09] MEDS: ZOLOFT 50 MG PO (09:16)
[2024-09-09] MEDS: WELLBUTRIN SR (12 hour sustained release) 150 MG PO ×2 (09:16→20:56)
[2024-09-09] MEDS: SINGULAIR 10 MG PO (09:16)
[2024-09-09] MEDS: ZYLOPRIM 300 MG PO (09:16)
[2024-09-09] MEDS: PROTONIX 40 MG PO (09:16)
[2024-09-09] MEDS: NAMENDA 10 MG PO ×2 (09:16→20:56)
[2024-09-09] MEDS: HEPARIN 5000 UNITS SC ×2 (09:17→20:55)
[2024-09-09] MEDS: RITALIN 10 MG PO ×3 (09:18→16:35)
[2024-09-09] MEDS: LASIX 20 MG PO (09:20)
--- NOTE | 2024-09-09 10:43 | CM ---
Chart reviewed
acute rehab referrals declined
spoke with Lore at [facility] - would like behaviors more under control before accepting
PLAN: SNF, pending bed availability once medically stable
--- NOTE | 2024-09-09 11:24 | W.PN.GS2 ---
Today's Communication / Plan
-
Pls call with ?s
Assessment / Plan
-
Assessment: 69-year-old male p/w strangulated umbilical hernia
POD #7 status post DX L, ex lap and small bowel resection for an umbilical hernia with strangulated small bowel.
AFVSS
Continues to improve
Tolerating IDDM
Plan:
-- Diet per DIRECTOR OF QUALITY CONTROL
-- pain control: Tylenol, OK for Toradol if needed
-- PT/OT/DIRECTOR OF QUALITY CONTROL to follow given Parkinson's history
-- Abx: completed Zosyn 09/14
-- Resume home dose of miralax
-- DVT: Heparin Sq for VTEp
-- GI: Protonix
-- OK for DC from surg standpooint, f/u in my office in 2 weeks for staple removal
Case management following, patient previously from home with spouse and will likely need rehab/snf upon discharge
Subjective Data
-
Date of Service: September 09, 2024
Pleasant, does not participate in encounter
Objective Data
-
Intake and Output
09/08/24 09/09/24 09/10/24
06:59 06:59 06:59
Intake Total 220 / 220 1300 / 1300
Balance 220 / 220 1300 / 1300
Intake:
Oral fluids 120 / 120 1300 / 1300
IV piggybacks 100 / 100
Other:
How many times incontinent 2 2
MODERATE amount urine
How many times incontinent 5 2
SATURATED amount urine
Vital Signs
Temp Pulse Resp BP Pulse Ox
97.8 F 60 14 123/74 99
09/09/24 07:25 09/09/24 09:20 09/09/24 07:25 09/09/24 09:20 09/09/24 07:25
Lab Results
09/08/24 06:43
09/08/24 06:43
Calcium 9.1 mg/dl (8.4-10.2) 09/08/24 06:43
Magnesium 2.1 mg/dl (1.6-2.3) 09/08/24 06:43
Total Bilirubin 1.0 mg/dl (0.2-1.3) 09/01/24 13:37
AST 21 U/L (17-59) 09/01/24 13:37
ALT 11 U/L (0-50) 09/01/24 13:37
Alkaline Phosphatase 86 U/L (38-126) 09/01/24 13:37
Total Protein 6.8 g/dl (6.3-8.2) 09/01/24 13:37
Albumin 4.2 g/dl (3.5-5.0) 09/01/24 13:37
Physical Exam
-
Gen: NAD
Abd: soft, incision cdi, approp ttp
Patient has a rowell catheter: No
Patient has a central line: No
[2024-09-09 11:51] LABS: Glucose - Point of Care 94 mg/dl (70-99)
--- NOTE | 2024-09-09 13:01 | W.PN.HOSP.TC ---
Today's Communication/Plan
-
Seroquel as needed twice daily
Delirium precautions
Assessment / Plan
Assessment / Plan
#Incarcerated umbilical hernia
- s/p reduction by GS in ER, and NGT tube; S/P IVF
- s/p Diagnostic laparoscopy, exploratory laparotomy, small bowel resection 09/02.
- OP note mentions diagnostic laparoscopy revealed patchy necrosis in a segment of small bowel and yellow creamy purulence without perforation or evidence of enteric contents free in the abdomen.
- diet: Soft and bite-size, advance per PEST MANAGEMENT SUPERVISOR
- Status post IV antibiotics
- pain control, anti-emetics
# Delirium
- Suspected hospital delirium superimposed on dementia, noted to have confusion and tried climbing out of bed on evening of 09/07
- As of morning 09/08 remains confused though no signs of significant agitation
- Will start delirium precautions, try to optimize natural lighting, frequent redirection
- Order Seroquel 25 mg as needed BID for agitation/owning
#Chronic HFpEF
- continue Lasix
- continue ACEi
- monitor I/Os, weights, lytes
#HLD
- No known ASCVD history, c/w statin
#Parkinson disease with dementia
- continue Sinemet
- continue Donepezil, memantine, AC Ritalin
#NIDDM 2
- continue oral meds: glimepiride and Metformin
- SSI
- A1c 5.4%
#CUATE
- not on CPAP at home
- no known association with group 3 pHTN
#CKD stage 2-3
- monitor BMP
#Obesity d/t excess calories
- BMI 33
- Affects all aspects of care
#Depression
- hold Zoloft/Wellbutrin
#History of dilated aortic root
- Will need to follow up OP for TTE monitoring
#Gout
- c/w allopurinol
#Diverticulosis
#History of asthma
- hold Singulair
- PRN bronchodilators
DVT ppx: SC Heparin
Diet: Soft and bite-size
Code: DNR/DNI
Anticipated Discharge: 24 - 48 hours
Subjective/Interval History
-
Date of Service: September 09, 2024
Seen and examined at bedside. Continues to have owning with agitation overnight. Did not receive Seroquel yesterday. AFVSS this morning
Remains confused and unable to hold appropriate conversation. No signs of agitation, appears calm
ROS limited by current mental status
Objective Data
-
Vital Signs:
Vital Signs
Temp Pulse Resp BP Pulse Ox
98.1 F 81 15 119/66 98
09/09/24 11:25 09/09/24 11:25 09/09/24 11:25 09/09/24 11:25 09/09/24 11:25
I&O
09/08/24 09/09/24 09/10/24
06:59 06:59 06:59
Intake Total 220 / 220 1300 / 1300
Balance 220 / 220 1300 / 1300
Review of Systems
-
Unable to obtain full review of systems at this time due to: Other (Delirium)
Physical Exam
-
General: Well Developed, Well Nourished, No Apparent Distress and Comfortable
HEENT: Normocephalic, Atraumatic, Moist Mucous Membranes and Anicteric
Respiratory: Clear to Auscultation and Non Labored Respirations; Negative Accessory Resp Muscle Use
Cardiac: Regular Rhythm and S1/S2; Negative Murmur, Rub or Gallop
GI: Soft, Nontender, Nondistended and Normal Bowel Sounds
Musculoskeletal: No Clubbing, No Cyanosis and No Edema
Skin: Warm and Dry; Negative Rash
Neuro: Awake, Alert, Tremors and Nonfocal/Grossly Intact; Negative Oriented
Psych: Calm
[2024-09-09 16:55] LABS: Glucose - Point of Care 89 mg/dl (70-99)
[2024-09-09] MEDS: LOW STRENGTH ASPIRIN 81 MG PO (17:15)
[2024-09-09] MEDS: CRESTOR 5 MG PO (17:15)
[2024-09-09] MEDS: ARICEPT 10 MG PO (20:57)
[2024-09-09] MEDS: TYLENOL 1000 MG PO (20:57)
[2024-09-09] MEDS: SEROQUEL 25 MG PO (20:57)
[2024-09-09] MEDS: MIRALAX PO (20:58)
[2024-09-09] MEDS: ZESTRIL 20 MG PO (20:58)
[2024-09-09 21:45] LABS: Glucose - Point of Care 102 mg/dl (70-99)
[2024-09-10 03:00] VITALS: BP 110/75
[2024-09-10 04:36] VITALS: BMI 31.2
[2024-09-10 07:14] VITALS: BP 115/77
[2024-09-10 07:33] LABS: Glucose - Point of Care 96 mg/dl (70-99)
[2024-09-10] MEDS: WELLBUTRIN SR (12 hour sustained release) 150 MG PO (08:47)
[2024-09-10] MEDS: NAMENDA 10 MG PO (08:47)
[2024-09-10] MEDS: PROTONIX 40 MG PO (08:47)
[2024-09-10] MEDS: SINGULAIR 10 MG PO (08:47)
[2024-09-10] MEDS: SEROQUEL 25 MG PO (08:48)
[2024-09-10] MEDS: HEPARIN 5000 UNITS SC (08:48)
[2024-09-10] MEDS: ZYLOPRIM 300 MG PO (08:48)
[2024-09-10] MEDS: SINEMET 25-250 1 TABLET PO ×2 (08:48→12:56)
[2024-09-10] MEDS: RITALIN 10 MG PO ×2 (08:48→12:56)
[2024-09-10] MEDS: ZOLOFT 50 MG PO (08:48)
[2024-09-10 11:08] VITALS: BP 97/62
--- NOTE | 2024-09-10 12:25 | W.PN.HOSP.TC ---
Today's Communication/Plan
-
Continue Seroquel 25 mg twice daily as needed for agitation
Discharge planning
Assessment / Plan
Assessment / Plan
#Incarcerated umbilical hernia
- s/p reduction by GS in ER, and NGT tube; S/P IVF
- s/p Diagnostic laparoscopy, exploratory laparotomy, small bowel resection 09/02.
- OP note mentions diagnostic laparoscopy revealed patchy necrosis in a segment of small bowel and yellow creamy purulence without perforation or evidence of enteric contents free in the abdomen.
- diet: Soft and bite-size, advance per [employer]
- Status post IV antibiotics
- pain control, anti-emetics
# Delirium
- Suspected hospital delirium superimposed on dementia, noted to have confusion and tried climbing out of bed on evening of 09/07
- As of morning 09/08 remains confused though no signs of significant agitation
- Will start delirium precautions, try to optimize natural lighting, frequent redirection
- Order Seroquel 25 mg as needed BID for agitation/owning
#Chronic HFpEF
- continue Lasix
- continue ACEi
- monitor I/Os, weights, lytes
#HLD
- No known ASCVD history, c/w statin
#Parkinson disease with dementia
- continue Sinemet
- continue Donepezil, memantine, AC Ritalin
#NIDDM 2
- continue oral meds: glimepiride and Metformin
- SSI
- A1c 5.4%
#CUATE
- not on CPAP at home
- no known association with group 3 pHTN
#CKD stage 2-3
- monitor BMP
#Obesity d/t excess calories
- BMI 33
- Affects all aspects of care
#Depression
- hold Zoloft/Wellbutrin
#History of dilated aortic root
- Will need to follow up OP for TTE monitoring
#Gout
- c/w allopurinol
#Diverticulosis
#History of asthma
- hold Singulair
- PRN bronchodilators
DVT ppx: SC Heparin
Diet: Soft and bite-size
Code: DNR/DNI
Anticipated Discharge: 24 - 48 hours
Subjective/Interval History
-
Date of Service: September 10, 2024
Seen and examined at the bedside. No acute events reported overnight. AFVSS
Received evening dose of Seroquel for agitation, had uneventful night thereafter.
Appears tired this morning, no acute complaints
Objective Data
-
Vital Signs:
Vital Signs
Temp Pulse Resp BP Pulse Ox
97.9 F 76 15 97/62 97
09/10/24 11:08 09/10/24 11:08 09/10/24 11:08 09/10/24 11:08 09/10/24 11:08
I&O
09/09/24 09/10/24 09/11/24
06:59 06:59 06:59
Intake Total 1300 / 1300 660 / 660 120 / 120
Output Total 250 / 250 200 / 200
Balance 1300 / 1300 410 / 410 -80 / -80
Review of Systems
-
Unable to obtain full review of systems at this time due to: Dementia
Physical Exam
-
General: Well Developed, Well Nourished, No Apparent Distress and Comfortable
HEENT: Normocephalic, Atraumatic, Moist Mucous Membranes and Anicteric
Respiratory: Clear to Auscultation and Non Labored Respirations
Cardiac: Regular Rhythm and S1/S2; Negative Murmur, Rub or Gallop
GI: Soft, Nontender and Nondistended
Musculoskeletal: No Clubbing, No Cyanosis and No Edema
Skin: Warm and Dry; Negative Rash
Neuro: Tremors, Sedated and Nonfocal/Grossly Intact
Psych: Calm
[2024-09-10 12:46] LABS: Glucose - Point of Care 89 mg/dl (70-99)
--- NOTE | 2024-09-10 13:22 | CM ---
CM following re: discharge planning.
Reviewed pt's chart, met with pt and pt's spouse at bedside.
According to MD pt is medically stable to be discharged. CM spoke to [pt's spouse a few times this morning and expressed her negative feelings regarding discharge plan process that has not been communicated with her for a week and this case management social worker
advise that pt to call the office of case management. Pt's spouse stated she requested pt goes to [facility].
CM spoke to [facility] nursing home admissions director a few times with some concerns regrading admitting the pt. Director of case management social worker was involved.
Per [facility] nursing home admissions director pt is admitted for admission today.
IMM reviewed with pt's spouse, placed on chart, spouse has a copy.
[facility] arranged transportation BLS, belt picker time 3:00 p.m. PMNC completed and left with
[facility] nursing repprt: [phone]
Discharge instructions fax: [phone]
D/C plan: [facility] today
--- NOTE | 2024-09-11 15:47 | W.DCSUMMARY ---
Discharge Summary
Discharge Data
Date of Admission: 09/01/24
Date of Discharge: 09/10/24
Total time spent discharging patient (in min): 36
-
Pending Results: No
Hospital Course
Discharging Physician :� Henry Salcedo DO
Disposition :���� SNF
Principal Discharge diagnosis :�
Incarcerated ventral hernia
Status post exploratory laparotomy
Status post small bowel resection (26 cm) with [id number] stapled anastomosis
Delirium superimposed on dementia
Chronic Discharge diagnosis :�
HFpEF
CUATE not on CPAP
NIDDM C/B neuropathy
CKD stage III
Parkinson's disease
Dyslipidemia
Hypertension
H/O DVT not on AC
H/O gastric sleeve
Hospital Course :�
69-year-old male who presented to the emergency department with a complaint of abdominal pain and a bulge/masslike structure in his abdomen that became progressively more painful throughout the day. CT scan on arrival showed possible small bowel
obstruction with transition point at the site of umbilical hernia, was evaluated by surgery who suspected incarcerated ventral hernia. Umbilical hernia was able to be reduced while in the ED. Was subsequently taken to the OR for exploratory
laparotomy which demonstrated patchy necrosis of small bowel with yellow creamy purulence though no signs of perforation. Was treated with 5 days of IV Zosyn for empiric intra-abdominal coverage. His diet was advanced and his postoperative
recovery was noneventful. He did however develop agitation due to in-hospital delirium superimposed on his Parkinson's dementia. Ultimately was started on Seroquel 25 mg twice daily as needed for agitation. Recommend that patient follow-up with
family doctor and neurology after discharge.
Consultants :
General surgery: Kike Mueller MD
Important imaging findings :�
CT A/P with IV contrast (09/01/2024)
Findings: Visualized portion of the lung bases are unremarkable. Simple right renal cyst for which no dedicated follow-up imaging is recommended. 1.3 cm benign lipid rich left adrenal adenoma. The liver, spleen, left kidney, right adrenal gland and
pancreas are within normal limits. Gallbladder absent. No abdominal aortic aneurysm. Dilated air and fluid-filled small bowel loops throughout the abdomen with transition point at the site of a small bowel containing umbilical hernia. Decompressed
distal small bowel loops. No enlarged lymph nodes, free fluid, or free air. Diverticulosis coli without evidence for diverticulitis. The bowel is without evidence of adjacent inflammatory changes. Bladder unremarkable. Grossly no suspicious osseous
lesions are identified.
Procedure findings :�
Diagnostic laparoscopy with exploratory laparotomy and small bowel resection (09/02/2024)
Operative Findings: Emesis noted in preop and evidence of aspiration on intubation; hypotensive on induction requiring neosynephrine; diagnostic laparoscopy revealed patchy necrosis in a segment of small bowel and yellow creamy purulence without
perforation or evidence of enteric contents free in the abdomen; limited midline incision and affected small bowel exteriorized; 26cm small bowel resected and side-side stapled anastomosis performed; no pressor requirement at case conclusion
Follow-up :
Follow-up with PCP in 1 to 2 weeks from discharge
Follow-up with primary neurologist after discharge
Follow-up with surgery in office in 2 weeks for staple removal
BMP and CBC 1 week after discharge at SNF
Discharge Plan
-
Patient Disposition: Care Home/SNF
Discharge Diagnosis/Procedures: Strangulated umbilical hernia status post open primary repair with small bowel resection
Delirium superimposed on dementia
Condition: Good
Diet: As tolerated and Low Fiber
Activity: No strenuous activity
Additional Activity: Do not lift over 15lbs for the next 4-6 weeks
Bathing Restrictions: OK to Shower
Activity Restrictions/Additional Instructions:
Vaishali will be removed during your follow up visit with your surgeon 2-3 weeks after your surgery
Cover incision lightly with dry gauze dressing. Ok to remove for showering. Ok to leave dressing off once drainage no longer present.
Referrals:
Kike Mueller MD [Active] - in two weeks
Cece Jalloh DO [Family Provider] -
Additional Discharge Medication Instructions: Continue quetiapine 25 mg every 12 hours as needed for agitation/delirium
Prescriptions:
New
quetiapine 25 mg Tablet
25 mg PO Q12 PRN (Reason: agitation) 30 Days Qty: 60 0RF
Continued
bupropion HCl [Wellbutrin SR] 150 MG tablet sustained-release 12 hr
150 mg PO DAILY
glimepiride 2 MG tablet
2 mg PO DAILY
montelukast 10 MG tablet
10 mg PO DAILY
allopurinol 300 MG tablet
300 mg PO DAILY
carbidopa-levodopa 25-250 mg tablet
1 tab PO QID
lisinopril 20 mg tablet
20 mg PO HS
furosemide 20 mg Tablet
20 mg PO MOWEFR
metformin 500 mg tablet extended release 24 hr
500 mg PO QPM
rosuvastatin 5 mg tablet
5 mg PO QPM
donepezil 23 mg tablet
23 mg PO HS
memantine 28 mg capsule,sprinkle,ER 24hr
28 mg PO HS
aspirin 81 MG tablet,chewable
81 mg PO QPM
sertraline [Zoloft] 50 mg Tablet
50 mg PO DAILY
methylphenidate HCl [Ritalin] 10 mg Tablet
10 mg PO TID
diclofenac sodium [Voltaren Arthritis Pain] 1 % Gel
2 g TOPICAL QID
Latha Allergy
PO DAILY
polyethylene glycol 3350 [Miralax] 17 gram Powder In Packet
17 g PO DAILY
Discharge Orders:
Discharge Patient (As Directed); Ordered 09/10/24
Ordered By: Henry Salcedo
Discharge Date and Time
Discharge Date/Time: 09/10/24 15:05
Print Language: SWEDISH
== END 2024-09-10 15:05 | DRG 329 ==
LOC: 2 SOUTH 19:54
PROVIDERS: Internal Medicine; Nurse Practitioner Family; Physician Assistant Medical; Registered Nurse; ADMITTING PHYSICIAN Hospitalist; ATTENDING PHYSICIAN Internal Medicine; CONSULT PHYSICIAN Surgery; EMERGENCY PHYSICIAN Emergency Medicine; FAMILY PHYSICIAN Family Medicine
PROC: 0WJG0ZZ Inspection of Peritoneal Cavity, Open Approach (ICD-10-PCS; 2024-09-02)
PROC: 0DB80ZZ Excision of Small Intestine, Open Approach (ICD-10-PCS; 2024-09-02)
DX: K42.0 Umbilical hernia with obstruction, without gangrene (principal); K55.029 Acute infarction of small intestine, extent unspecified; F02.83 Dementia in other diseases classified elsewhere, unspecified severity, with mood disturbance; I13.0 Hypertensive heart and chronic kidney disease with heart failure and stage 1 through stage 4 chronic kidney disease, or unspecified chronic kidney disease; I50.32 Chronic diastolic (congestive) heart failure; F02.84 Dementia in other diseases classified elsewhere, unspecified severity, with anxiety; R47.01 Aphasia; N18.30 Chronic kidney disease, stage 3 unspecified; E11.22 Type 2 diabetes mellitus with diabetic chronic kidney disease; G20.A1 Parkinson's disease without dyskinesia, without mention of fluctuations; F32.A Depression, unspecified; E66.9 Obesity, unspecified; E78.00 Pure hypercholesterolemia, unspecified; J45.909 Unspecified asthma, uncomplicated; Z68.31 Body mass index [BMI] 31.0-31.9, adult; G47.30 Sleep apnea, unspecified; M10.9 Gout, unspecified; N40.0 Benign prostatic hyperplasia without lower urinary tract symptoms; E11.40 Type 2 diabetes mellitus with diabetic neuropathy, unspecified; Z88.1 Allergy status to other antibiotic agents; Z79.84 Long term (current) use of oral hypoglycemic drugs; Z79.82 Long term (current) use of aspirin; Z79.899 Other long term (current) drug therapy; Z98.84 Bariatric surgery status; K57.30 Diverticulosis of large intestine without perforation or abscess without bleeding; Z66 Do not resuscitate
CPT/HCPCS: 88307; 71045; 74177; 80048; 80053; 81003; 81015; 82962; 83036; 83605; 83690; 83735; 85025; 85027; 92610; 93005; 96374; 96375; 96376; 97110; 97116; 97163; 97167; 97530; 97535; 99285; C1776; Q9967

== ENCOUNTER → 2024-09-17 08:49 | Outpatient (REF) | payer OTHER, MEDICARE, SELFPAY ==
[2024-09-17 11:31] LABS: % Basophils 0.6 % (0-2); % Eosinophils 1.5 % (0-6); % Immature Granulocytes 0.6 % (0-0.5); % Lymphocytes 19.2 % (20.5-51.1); % Monocytes 11.9 % (1.7-9.3); % Neutrophils 66.2 % (42.2-75.2); Absolute Basophils 0.1 10^3/uL (0-0.2); Absolute Eosinophils 0.2 10^3/uL (0-0.7); Absolute Immature Granulocytes 0.1 10^3/uL (0-0.05); Absolute Lymphocytes 1.9 10^3/uL (1.2-3.4); Absolute Monocytes 1.2 10^3/uL (0.1-0.6); Absolute Neutrophils 6.6 10^3/uL (1.4-6.5); Hematocrit 42.8 % (39.0-52.0); Mean Corp Hgb Conc. 32.7 g/dL (33.0-37.0); Mean Corpuscular Hgb 31.7 pg (27.0-31.0); Mean Corpuscular Volume 96.8 fL (80.0-94.0); Mean Platelet Volume 11.3 fL (7.4-10.4); Nucleated Red Blood Cells % 0 % (-); Platelet Count 309 10^3/uL (130-400); Red Blood Cell Count 4.42 10^6/uL (4.70-6.10); Red Cell Dist. Width 13.1 % (11.5-14.5)
[2024-09-17 12:02] LABS: ALT (SGPT) 22 U/L (0-50); AST (SGOT) 32 U/L (17-59); Albumin 3.7 g/dl (3.5-5.0); Alkaline Phosphatase 90 U/L (38-126); Blood Urea Nitrogen 35 mg/dl (9-20); Calcium 9.2 mg/dl (8.4-10.2); Carbon Dioxide 23 mmol/L (22-30); Chloride 102 mmol/L (98-107); Glucose 87 mg/dl (70-99); HDL Cholesterol 29 mg/dl; LDL Cholesterol, Calculated 49 mg/dl; Magnesium 1.9 mg/dl (1.6-2.3); Potassium 4.7 mmol/L (3.5-5.1); Sodium 135 mmol/L (135-145); Total Bilirubin 1.1 mg/dl (0.2-1.3); Total Cholesterol 92 mg/dl (50-199); Total Protein 6.1 g/dl (6.3-8.2); Triglyceride 73 mg/dl (10-149); Very Low Density Lipoprotein 14 mg/dl (0-30); eGFR > 60.00
== END ==
LOC: OLABN 08:49
PROVIDERS: ATTENDING PHYSICIAN Student in an Organized Health Care Education/Training Program
DX: E78.5 Hyperlipidemia, unspecified (principal); G20.C Parkinsonism, unspecified
CPT/HCPCS: 36415; 80053; 80061; 83735; 85025

== ENCOUNTER 2024-11-01 13:27 | Inpatient (IN) | payer MEDICARE, OTHER, SELFPAY ==
[2024-11-01] VITALS (9 sets, daily range): BP systolic 103–147; BP diastolic 76–103; BMI 27.2
[2024-11-01 11:34] LABS: Glucose - Point of Care 37 mg/dl (70-99)
[2024-11-01 11:37] LABS: Glucose - Point of Care 32 mg/dl (70-99)
[2024-11-01] MEDS: DEXTROSE 50% SYRINGE 25 GRAMS IV (11:41)
[2024-11-01 11:52] LABS: Glucose - Point of Care 103 mg/dl (70-99)
[2024-11-01 11:57] LABS: Hematocrit 38.8 % (39.0-52.0); Hemoglobin 12.9 g/dL (13.0-18.0); Mean Corp Hgb Conc. 33.2 g/dL (33.0-37.0); Mean Corpuscular Volume 97.0 fL (80.0-94.0); Nucleated Red Blood Cells % 0 % (-); Platelet Count 198 10^3/uL (130-400); Red Cell Dist. Width 14.0 % (11.5-14.5)
--- NOTE | 2024-11-01 12:20 | ED.GENMED ---
History of Present Illness
General
Chief Complaint: Blood Pressure Problem
Source: patient and spouse
Exam Limitations: altered mental status
Time Seen by Provider: 11/01/24 11:55
Nursing documentation reviewed up to this point in time: agreed with
History of Present Illness
History of Present Illness:
69-year-old male with dementia and recent admission for gangrenous bowel, was at his rehab facility until recently went home type II diabetic on metformin and glimepiride lethargic today EMS was called blood sugar was low given D10 here blood sugar
repeatedly low given D50 and some juice
Past History
Past History
ED Past Medical History: CHF, HTN, Hypercholesterolemia, NIDDM and Other (Sleep apnea, DVT, Parkinson's)
ED Past Surgical History: Cardiac, Cholecystectomy, Orthopedic and Other (Bowel resection)
Social History
Tobacco: Non-smoker
Alcohol: None
Drug: None
Personal:
Living: with family
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
Family History
Family History: CAD
Review of Systems
Review of Systems
All Other Systems: Not applicable
Phy Exam
Physical Exam
Physical Exam:
Physical Exam
General: Chronically ill-appearing male
Neck: Dry lip
Heart: Rate
Lungs: Bibasilar
Abdomen: Soft nontender
Neuro: alert and oriented.
Skin: no rash
Psychiatric: well kept. interactive and cooperative
Extremities: no edema.
Course
Orders/Labs/Results
Orders:
Orders
11/01/24 11:39
Dextrose 50%-Water [Dextrose 50% Syringe] 25 grams .ROUTE .STK-MED ONE
11/01/24 11:40
Dextrose 50%-Water [Dextrose 50% Syringe] 25 grams IV NOW STA
11/01/24 11:51
CMP [Comprehensive Metabolic Panel] Urgent
Complete Blood Count/With Diff Urgent
11/01/24 12:16
Urinalysis Reflex To Culture Urgent
11/01/24 12:18
CR Chest Portable - 1 View Urgent
Comment:
Reason For Exam: low blood suger
Reason Study Needs to be Portable: Patient Unstable
Abnormal Lab Results
11/01/24 11/01/24 11/01/24
11:33 11:36 11:51
RBC 4.00 L 10^6/uL
(4.70-6.10)
Hgb 12.9 L g/dL
(13.0-18.0)
Hct 38.8 L %
(39.0-52.0)
MCV 97.0 H fL
(80.0-94.0)
MCH 32.3 H pg
(27.0-31.0)
MPV 10.5 H fL
(7.4-10.4)
Lymphocytes % 17.9 L %
(20.5-51.1)
POC Glucose 37 L* mg/dl 32 L* mg/dl 103 H mg/dl
(70-99) (70-99) (70-99)
11/01/24 11:51
Vital Signs
Initial and Last Documented VS:
Initial Vital Signs
Pulse Resp
59 17
11/01/24 11:36 11/01/24 11:36
Last Documented Vital Signs
Temp Pulse Resp BP Pulse Ox
97.8 F 85 20 116/83 100
11/01/24 11:42 11/01/24 12:00 11/01/24 11:45 11/01/24 11:42 11/01/24 11:42
MDM/Problems Addressed
Differential Diagnosis Includes:
Dehydration hypoglycemia UTI pneumonia
MDM/Problems Addressed:
Hypoglycemia
Chronic conditions affecting care: DM, Neurological disorder, Previous abdomnial surgery and Kidney disease
Acute Exacerbation and/or Progression of Chronic Illness: DM, Neurological disorder, Previous abdomnial surgery and Kidney disease
*Radiology
Radiology exam reviewed: preliminary read by ED provider
*Pulse Oximetry
SaO2: 100
Oxygen Mode of Delivery: Room air
Patient hypoxic: no
*EKG
Interpretation: abnormal
Comparison EKG: no comparison EKG present
Heart Rate: 78
Rate: normal
Rhythm: sinus
Ischemia: non-specific ST changes
*Parts Casting Machine Operator Interpretation
Rate: normal
Interpretation: normal
Heart Rate: 78
Rhythm: sinus
*Critical Care Note
Total Time (30-74mins, 75-104mins- exclusive of procedures): 30
ED Attending Note
-
Portions of this chart may have been created with voice recognition software.� Occasional wrong word or��sound alike� substitutions may have occurred due to the inherent limitations of voice recognition software.
Discharge Plan
Departure
Prescriptions:
No Action
bupropion HCl [Wellbutrin SR] 150 MG tablet sustained-release 12 hr
150 mg PO DAILY
glimepiride 2 MG tablet
2 mg PO DAILY
montelukast 10 MG tablet
10 mg PO DAILY
allopurinol 300 MG tablet
300 mg PO DAILY
carbidopa-levodopa 25-250 mg tablet
1 tab PO QID
lisinopril 20 mg tablet
20 mg PO HS
furosemide 20 mg Tablet
20 mg PO MOWEFR
metformin 500 mg tablet extended release 24 hr
500 mg PO QPM
rosuvastatin 5 mg tablet
5 mg PO QPM
donepezil 23 mg tablet
23 mg PO HS
memantine 28 mg capsule,sprinkle,ER 24hr
28 mg PO HS
aspirin 81 MG tablet,chewable
81 mg PO QPM
sertraline [Zoloft] 50 mg Tablet
50 mg PO DAILY
methylphenidate HCl [Ritalin] 10 mg Tablet
10 mg PO TID
diclofenac sodium [Voltaren Arthritis Pain] 1 % Gel
2 g TOPICAL QID
Latha Allergy
PO DAILY
polyethylene glycol 3350 [Miralax] 17 gram Powder In Packet
17 g PO DAILY
quetiapine 25 mg Tablet
25 mg PO Q12 PRN (Reason: agitation) 30 Days Qty: 60 0RF
Interventions
Interventions:
*Risk Screen - Suicide Last Done: 11/01/24 11:53
*General Assessment Last Done: 11/01/24 11:53
*Neglect/Abuse Screening Last Done: 11/01/24 11:53
*ED- Fall Risk Assessment Last Done: 11/01/24 11:53
*ED COVID-19 Vaccine History Last Done: 11/01/24 11:53
Discharge Date and Time
Print Language: TAJIK
[2024-11-01 12:33] LABS: ALT (SGPT) 16 U/L (0-50); AST (SGOT) 77 U/L (17-59); Albumin 3.2 g/dl (3.5-5.0); Alkaline Phosphatase 77 U/L (38-126); Blood Urea Nitrogen 17 mg/dl (9-20); Calcium 8.6 mg/dl (8.4-10.2); Carbon Dioxide 28 mmol/L (22-30); Chloride 103 mmol/L (98-107); Estimated Creatinine Clearance 121 ml/min; Glucose 188 mg/dl (70-99); Potassium 3.8 mmol/L (3.5-5.1); Sodium 136 mmol/L (135-145); Total Protein 5.7 g/dl (6.3-8.2); eGFR > 60.00
[2024-11-01 12:39] LABS: Urine Character Clear (Clear)
[2024-11-01 12:56] LABS: Glucose - Point of Care 63 mg/dl (70-99)
[2024-11-01 12:59] LABS: Urine Squamous Cell 0-2 /LPF (Few)
[2024-11-01 13:00] LABS: Urine Red Blood Cell 0-2 /HPF (0-2); Urine White Cell 21-25 /HPF (0-5)
--- NOTE | 2024-11-01 13:14 | HPS.HSE ---
Family Physician
-
Family Physician: Cece Jalloh
Chief Complaint
-
tme
History of Present Illness
69 male, history of bowel ischemia seen resection recently, Lewy body dementia with Parkinson's and dysphagia, diabetes, hypertension, hyperlipidemia who presents from home after being found to have lethargic, not cooperating, did not eat anything.
EMS found him to be hypoglycemic and was provided with d50 with improvement in BG. His last meal for chicken pot pie last night laong with strawberries. Per currently at baseline which is he knows his name and he knows his location. However
he does not know the year. He is slow to respond because of the aphasia.
Should be noted that he was a recently admitted in September for bowel ischemia s/p small bowel resection then discharged to [facility]. Just came home from [facility] on 10/29/2024. Since then per has noted lethargy and not as cooperative
however today he was not doing anything
He denies nausea vomiting shortness of breath palpitations. Admits to burning with urination that just started.
Review of EMS documentation blood glucose [phone]. Provided D10 normal saline at 75 cc. While in the ED found to have a blood sugar in the 30s and was given 25 g of D50.
Has remained hemodynamically stable. No white count. Hemoglobin 12.9 PLT 198. Chemistry unremarkable with a blood glucose of 188. Urine with ketones of 1+, reflux 1+, nitrate positive, bilirubin 1+, leuk esterase 2+, WBC 21-25, bacteria many.
Medical History
Past Medical History
Past Medical History: Reports Dementia, HTN and Hypercholesterolemia
Past Surgical History: Reports Bowel Resection
Social History
Unable to obtain full social history at this time due to: Dementia
Family History
Family History: Not pertinent
Allergies / Home Medications
Allergies reflects when Allergies were last updated in [place].
Home Medications with original date entered in [place]
Allergy/Medication List:
Allergies
Allergy/AdvReac Type Severity Reaction Status Date / Time
ciprofloxacin (From Cipro) Allergy tendonitis Verified 11/01/24 11:49
ciprofloxacin HCl (From Allergy tendonitis Verified 11/01/24 11:49
Cipro)
Home Medications
allopurinol 300 mg tablet 300 mg PO DAILY Gout 08/09/17
bupropion HCl 150 mg tablet,12 hr sustained-release (Wellbutrin SR) 150 mg PO BID Mental Health/Anxiety 08/09/17
glimepiride 2 mg tablet 2 mg PO DAILY Diabetes 08/09/17
montelukast 10 mg tablet 10 mg PO DAILY Allergies 08/09/17
aspirin 81 mg chewable tablet 81 mg PO QPM Blood Clot Prevention/Tx 03/22/23
carbidopa 25 mg-levodopa 250 mg tablet 1 tab PO QID Neurological Condition 03/22/23
donepezil 23 mg tablet 23 mg PO HS Neurological Condition 03/22/23
lisinopril 20 mg tablet 20 mg PO HS Blood Pressure 03/22/23
memantine 28 mg capsule sprinkle,extended release 24hr 28 mg PO HS Neurological Condition 03/22/23
metformin 500 mg tablet,extended release 24 hr 500 mg PO QPM Diabetes 03/22/23
rosuvastatin 5 mg tablet 5 mg PO QPM High Cholesterol 03/22/23
Latha Allergy 1 tab PO DAILY ALLERGY 09/01/24
diclofenac sodium 1 % topical gel (Voltaren Arthritis Pain) 2 g topical QID Pain 09/01/24
polyethylene glycol 3350 17 gram oral powder packet (Miralax) 17 g PO DAILY Constipation 09/01/24
sertraline 50 mg tablet (Zoloft) 50 mg PO DAILY Mental Health/Anxiety 09/01/24
cholecalciferol (vitamin D3) 50 mcg (2,000 unit) capsule (Vitamin D3) 50 mcg PO DAILY 11/01/24
cyanocobalamin (vitamin B-12) 1,000 mcg tablet 1,000 mcg PO DAILY 11/01/24
Review of Systems
-
Unable to obtain full review of systems at this time due to: Dementia
A 12 point ROS was completed and negative except as noted: Yes
Physical Exam
Vital Signs
Vital Signs
Temp Pulse Resp BP Pulse Ox
97.8 F 78 19 121/78 100
11/01/24 11:42 11/01/24 12:00 11/01/24 12:00 11/01/24 12:00 11/01/24 12:23
Physical Exam
General: No Apparent Distress
HEENT: NormoCephalic, Anicteric and Atraumatic; No Moist mucous membranes
Respiratory: Clear
Cardiac: S1/S2 and Regular Rhythm
GI: Soft, Non Tender, Non Distended and Normal Bowel Sounds
Musculoskeletal: No Clubbing and No Cyanosis
Skin: Warm and Dry
Psych: Calm
Laboratory Results
-
11/01/24 11:51
11/01/24 11:51
Laboratory Results
Total Bilirubin 0.7 mg/dl (0.2-1.3) 11/01/24 11:51
AST 77 U/L (17-59) H 11/01/24 11:51
ALT 16 U/L (0-50) 11/01/24 11:51
Alkaline Phosphatase 77 U/L (38-126) 11/01/24 11:51
Impression/Plan
-
Toxic metabolic encephalopathy likely multifactorial in the setting of neuroglycopenia and suspected urinary tract infection.
Now improved, at baseline per
Every 2 hour Accu-Cheks
D5 half NS at a rate of 60
Maintain blood glucose between [address] brain rule out CVA however it is unlikely as he is without focal neurological deficit
Start IV antibiotics
TSH B12 folate can consider RPR and HIV
Urinary tract infection/acute cystitis
UA grossly positive
Await urine culture
Follow-up blood culture
IV antibiotics
Diabetes
Hold metformin
Hold glimepiride, in the setting of elderly should probably be discontinued
Sliding scale
Accu-Cheks
Goal blood glucose 140-180
Carb controlled diet
Gout
Continue allopurinol
Anxiety
Continue Wellbutrin and sertraline
Hyperlipidemia
Continue statin
Lewy body dementia
Continue memantine and donepezil
B12 insufficiency/deficiency
Continue supplementation
Check B12 level
Vitamin D deficiency
Continue 50 mcg daily
[2024-11-01] MEDS: D10W 1000 IV (13:21)
[2024-11-01] MEDS: ROCEPHIN 1000 MG IV (13:21)
[2024-11-01 14:11] LABS: Glucose - Point of Care 96 mg/dl (70-99)
[2024-11-01 17:06] LABS: Glucose - Point of Care 64 mg/dl (70-99)
--- NOTE | 2024-11-01 17:59 | W.PN.UPDATE ---
Update Note
Progress Note Update
Cross Coverage Update:
discussed with RN, patient AMS agitated
-non-violent restraints ordered
-prn Ativan 0.25 mg Q6HPRN agitation, IV 0.25 mg Q6HPRN also ordered in case not tolerating PO
-Sugars noted improving, IVF to switch to D5W1/2NS 60 cc/h as ordered by admitting, repeat FS check in 2h, cont ACHS FS if remains euglycemic, change FS to Q2H if Hypoglycemia recurs
[2024-11-01 18:04] LABS: Glucose - Point of Care 89 mg/dl (70-99)
[2024-11-01] MEDS: CRESTOR 5 MG PO (18:30)
[2024-11-01] MEDS: D5/0.45%NACL 1000 IV (18:30)
[2024-11-01] MEDS: LOW STRENGTH ASPIRIN 81 MG PO (18:30)
[2024-11-01] MEDS: LOVENOX 40 MG SC (18:30)
[2024-11-01] MEDS: SINEMET 25-250 1 TABLET PO ×2 (18:31→22:21)
--- NOTE | 2024-11-01 19:15 | PTCARENOTE ---
inaacurate pulse of 255 captured from Cotton monitor at 1605. please disregard
[2024-11-01] MEDS: ATIVAN 0.25 MG PO (19:25)
[2024-11-01] MEDS: WELLBUTRIN SR (12 hour sustained release) 150 MG PO (19:25)
[2024-11-01] MEDS: NAMENDA 10 MG PO (19:25)
--- NOTE | 2024-11-01 19:38 | PTCARENOTE ---
recieved pt from ED approx 1530. see assessment and nursing flowsheet. pt confused and pulling at ivs , monitor wires. unable to get good telemetry reading due to constant jittery movements. pt pulled iv on left arm. accucheck pre dinner time was
64. juice given per protocol and recheck of sugar was 89. hospitalist made aware, order placed for restraints for pt safety. prn ativan order placed. bed alarm in place. pt incontinent large amounts yellow urine. fed pt about 40 percent of his
dinner.
[2024-11-01 20:14] LABS: Glucose - Point of Care 111 mg/dl (70-99)
[2024-11-01] MEDS: ZESTRIL 20 MG PO (22:21)
[2024-11-01] MEDS: ARICEPT 10 MG PO (22:21)
[2024-11-01 22:45] LABS: Glucose - Point of Care 79 mg/dl (70-99)
[2024-11-02] VITALS (16 sets, daily range): BP systolic 77–163; BP diastolic 47–97; BMI 26.4
[2024-11-02] MEDS: DEXTROSE 50% SYRINGE 12.5 GRAMS IV (00:54)
[2024-11-02 01:03] LABS: Glucose - Point of Care 67 mg/dl (70-99)
[2024-11-02 01:30] LABS: Glucose - Point of Care 93 mg/dl (70-99)
--- NOTE | 2024-11-02 01:36 | PTCARENOTE ---
Assumed care of Pt at shift change; Pt confused at baseline with expressive aphasia; Pt restless/agitated at times, remains in restraints. Accucheck @ 2200 ~ 79, rechecked @ 0100 out of caution, Glucose = 67. Pt noted to be diaphoretic and more
confused then baseline. Attempted to give 4oz OJ however Pt was unable to take PO at the time - 1/2 amp of D50 administered with 15 recheck glucose = 93; Pt continues with D5 & 1/2 NSS @ 60/hr; Will continue to monitor and assess.
[2024-11-02] MEDS: ATIVAN 0.25 MG IV (02:21)
[2024-11-02] MEDS: NSS (PRESERVATIVE FREE) 0.125 ML IV (02:21)
[2024-11-02 03:41] LABS: Glucose - Point of Care 181 mg/dl (70-99)
[2024-11-02 03:47] LABS: Hematocrit 38.1 % (39.0-52.0); Hemoglobin 13.2 g/dL (13.0-18.0); Mean Corp Hgb Conc. 34.6 g/dL (33.0-37.0); Mean Corpuscular Volume 95.0 fL (80.0-94.0); Platelet Count 192 10^3/uL (130-400); Red Cell Dist. Width 13.9 % (11.5-14.5)
[2024-11-02 04:10] LABS: Blood Urea Nitrogen 9 mg/dl (9-20); Calcium 8.0 mg/dl (8.4-10.2); Carbon Dioxide 25 mmol/L (22-30); Chloride 104 mmol/L (98-107); Estimated Creatinine Clearance 121 ml/min; Glucose 441 mg/dl (70-99); Potassium 3.4 mmol/L (3.5-5.1); Sodium 132 mmol/L (135-145); eGFR > 60.00
[2024-11-02 04:40] LABS: Cortisol, Random 15.1 ug/dl
[2024-11-02 05:15] LABS: Folate 2.2 ng/ml (2.76-20); Vitamin B12 833 pg/ml (239-931)
[2024-11-02 05:39] LABS: Glucose - Point of Care 132 mg/dl (70-99)
[2024-11-02] MEDS: KCL 270 MEQ IV (07:38)
[2024-11-02] MEDS: MIRALAX 17 GRAMS PO (07:42)
[2024-11-02] MEDS: VITAMIN D3 (cholecalciferol) 50 MCG PO (07:42)
[2024-11-02] MEDS: ZYLOPRIM 300 MG PO (07:43)
[2024-11-02] MEDS: WELLBUTRIN SR (12 hour sustained release) 150 MG PO ×2 (07:43→20:55)
[2024-11-02] MEDS: SINEMET 25-250 1 TABLET PO ×4 (07:43→20:55)
[2024-11-02] MEDS: VITAMIN B-12 1000 MCG PO (07:43)
[2024-11-02] MEDS: ZOLOFT 50 MG PO (07:43)
[2024-11-02] MEDS: CLARITIN 10 MG PO (07:43)
[2024-11-02] MEDS: SINGULAIR 10 MG PO (07:43)
[2024-11-02] MEDS: NAMENDA 10 MG PO ×2 (07:43→20:55)
[2024-11-02 08:01] LABS: Glucose - Point of Care 70 mg/dl (70-99)
[2024-11-02 08:49] LABS: Glycohemoglobin (HgbA1c) 5.4 % (4.0-5.6)
--- NOTE | 2024-11-02 09:03 | PTOTSP ---
Dysphagia Evaluation
Patient presents with signs concerning for acute on chronic dysphagia and concern for possible aspiration with pureed and soft solids. Patient with acute on chronic dysphagia risk factors (i.e., UTI with TME; LBD with Parkinsons and chronic
dysphagia).
Recommend:
1. Temporary downgrade to THIN LIQUID DIET
2. Strategies: upright to 90 degrees, PO only when awake/alert, 1:1 supervision/assist, small single sips, slow rate, D/C if coughing noted
3. Meds: in liquid form or 1x with sips of liquid; check for pocketing
4. Oral care 3x daily with suctioning
5. Dysphagia tx at the acute care level to determine if/when diet advancement appropriate and/or if instrumental swallowing testing warranted.
[2024-11-02] MEDS: FOLVITE 50.2 MG IV (09:21)
[2024-11-02] MEDS: D5/0.45%NACL 1000 IV (09:22)
[2024-11-02 09:23] LABS: Magnesium 1.6 mg/dl (1.6-2.3)
[2024-11-02] MEDS: ATIVAN 0.25 MG PO ×2 (09:53→20:55)
--- NOTE | 2024-11-02 10:24 | W.PN.HOSP.TC ---
Today's Communication/Plan
-
cont ceftriaxone
US renal
might be a candidate for GOC discussion
Assessment / Plan
Assessment / Plan
69yo M with PMHx of lewy body dementia, parkinsons, DM, HTN, HLD brought with lethargy, found hypoglycemia and possible UTI
A/P:
#Acute metabolic encephalopathy 2/2 combination of hypoglycemia and UTI on parkinsons and Lewy body dementia
hold off oral DM meds
accuchecks, D5W
Ceftriaxone, pending Ucx
US renal
Bcx NTD
Head CT - patient unsafe to go to the scan as per RN since he is not steady
cont home meds
#Anemia
#folate deficiency
Folate IVF, follow CBC
#Mild CPK elevation
suspect 2/2 agitation
cont IVF
#Chronic dysphagia
aspiration precautions
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
Dysphagia diet
#Hypokalemia
#hypomagnesemia
repleate, follow
#DM type 2 with unspecified complications with hypoglycemia
stop oral antiglycemics
Accuchecks
#gout
#ASCVD
#Anxiety
#COPD/Asthma not in exacerbation
#HLD
cont home meds, stop statin, start Zetia due to milf CPK elevation -cannot exclude statin reaction
DVT ppx Lovenox
DNR/DNI
I have spent at least 58min reviewing chart, test results and providing direct patient care
Anticipated Discharge: 24 - 48 hours
Subjective/Interval History
-
Date of Service: November 02, 2024
Objective Data
-
Labs:
Laboratory Results
11/02/24
03:23
WBC 8.5
Hgb 13.2
Hct 38.1 L
Plt Count 192
Sodium 132 L
Potassium 3.4 L
Chloride 104
Carbon Dioxide 25
BUN 9
Creatinine 0.7
Glucose 441 H
Calcium 8.0 L
Vital Signs:
Vital Signs
Temp Pulse Resp BP Pulse Ox
98.0 F 83 21 113/75 98
11/02/24 07:35 11/02/24 04:00 11/02/24 06:00 11/02/24 06:00 11/02/24 03:11
Review of Systems
-
Unable to obtain full review of systems at this time due to: Dementia
Physical Exam
-
General: No Apparent Distress
HEENT: Normocephalic
Respiratory: Clear to Auscultation
Cardiac: Regular Rhythm
GI: Soft, Nontender and Nondistended
Musculoskeletal: No Clubbing, No Cyanosis and No Edema
Skin: Warm
Neuro: Awake and Alert
Psych: Confused and Apparent Dementia
[2024-11-02] MEDS: MAGNESIUM SULFATE 50 IV (10:26)
[2024-11-02 12:25] LABS: Glucose - Point of Care 75 mg/dl (70-99)
[2024-11-02] MEDS: STERILE WATER FOR INJECTION 10 ML IV (13:35)
[2024-11-02] MEDS: ROCEPHIN 1000 MG IV (13:35)
--- NOTE | 2024-11-02 14:23 | W.PN.UPDATE ---
Update Note
Progress Note Update
Holding Lisinopril due to low labile BP
--- NOTE | 2024-11-02 14:41 | WOUNDNOTE ---
[facility] RN note: Patient admitted with incarcerated umbilical hernia.
See H&P for complete history.
PMH: ED Past Medical History: CHF, HTN, Hypercholesterolemia, NIDDM and Other (Sleep apnea, DVT, Parkinson's)
ED Past Surgical History: Cardiac, Cholecystectomy, Orthopedic and Other (Bowel resection)
Wound Location and type/assessment: Patient admitted with: L buttock, close to Coccyx a stage 3 PI. R distal buttock stage 2 PI. Sacrum suspected stage 2 PI, blanchable red skin surrounding. L elbow and knees with rug hernandez from past fall, reports
nurse Kimmy. Knee abrasions are dry and intact. Patient is confused and with soft restraints. Patient cooperative with assessment, 3 people assist to turn. Heels are intact. Goals of care being discussed with family.
Appetite: dietary following.
Pressure redistribution devices in place: On Air mattress, asked nurse to keep on air mattress if not going on hospice, when transferred to floor. Pillow placed under calves.
Plan: Foams applied to L elbow, sacrum and buttock. R elbow with protective foam, blanchable and intact. Foam adhesives applied to heels to protect. Will confirm orders with hospitalist and updated nurse.
Updated care plan and will follow as needed.
Note to case management of equipment requested for discharge: TBD
[2024-11-02] MEDS: NSS 500 IV (14:42)
--- NOTE | 2024-11-02 14:46 | CM ---
CM spoke with spouse
Pt typically resides with his spouse and 25 y/o son in a 2SH with 1 REGAN
Pt was indep ambulation with use of a WW
Required supervision due to dementia
PCP- Cece Montesinos
Rx- Karen Maxime-On
Pt admitted to [facility] from 09/01-09/10
Discharge to [facility] from 09/10-10/29
Was set up with [facility] but never started service due to admission
Pt now has a wheelchair and stairglide at home
Spouse requesting referrals to [facility], [facility] and [facility]
She is considering LTC
Of note, her mother on 10/29- was a LTC resident at [facility] for 10 years
this upcoming weekend
PASRR completed and referrals sent via [facility]
Pt will require PT/OT once appropriate
Discharge Disposition- SNF for LTC
--- NOTE | 2024-11-02 14:52 | PTCARENOTE ---
Rec'd pt this AM, very confused, restless, agitated. remains in 4pt restraints with mitts. Pt incontinent of large amounts of urine. Around 1400 pt's BP hypotensive. Updated Dr. Carpenter. 500ml bolus ordered. Pt remains awake, alert, confused,
restless. clear liquid diet per speech.
[2024-11-02] MEDS: NSS 250 IV (16:34)
[2024-11-02 16:48] LABS: Glucose - Point of Care 92 mg/dl (70-99)
[2024-11-02] MEDS: LOVENOX 40 MG SC (17:36)
[2024-11-02] MEDS: LOW STRENGTH ASPIRIN 81 MG PO (17:36)
[2024-11-02] MEDS: CRESTOR 5 MG PO (17:36)
[2024-11-02] MEDS: ARICEPT 10 MG PO (20:55)
[2024-11-02 21:36] LABS: Glucose - Point of Care 93 mg/dl (70-99)
[2024-11-03] VITALS (12 sets, daily range): BP systolic 93–162; BP diastolic 55–101; BMI 26.7
[2024-11-03 03:23] LABS: Glucose - Point of Care 81 mg/dl (70-99)
[2024-11-03 03:36] LABS: Hematocrit 38.6 % (39.0-52.0); Hemoglobin 12.8 g/dL (13.0-18.0); Mean Corp Hgb Conc. 33.2 g/dL (33.0-37.0); Mean Corpuscular Volume 96.7 fL (80.0-94.0); Platelet Count 200 10^3/uL (130-400); Red Cell Dist. Width 14.1 % (11.5-14.5)
[2024-11-03 04:05] LABS: Blood Urea Nitrogen 7 mg/dl (9-20); Calcium 9.0 mg/dl (8.4-10.2); Carbon Dioxide 29 mmol/L (22-30); Chloride 108 mmol/L (98-107); Estimated Creatinine Clearance 121 ml/min; Glucose 85 mg/dl (70-99); Potassium 4.1 mmol/L (3.5-5.1); Sodium 139 mmol/L (135-145); eGFR > 60.00
--- NOTE | 2024-11-03 04:07 | PTCARENOTE ---
Received pt at change of shift. Glucose remains in the normal range; 83 at 03:00. Pt AAOx1 - to self only; garbled speech; difficult to understand. 4 pt restraints with soft mitts remain intact; pt restless. Q2T. Call varner within reach.
--- NOTE | 2024-11-03 07:31 | PN.CDI ---
CDI
- -
CDI:
Physician Documentation Request
Admit Date: 11/01/24 13:27
Dear Doctor Manuel,
Please review the following and provide your response in the progress notes.
Clinical Indicators:
11/02/24 14:41 - Wound Note
#Wound Location and type/assessment:
#...Patient admitted with: L buttock, close to Coccyx a stage 3 PI.
#...R distal buttock stage 2 PI.
#...Sacrum suspected stage 2 PI, blanchable red skin surrounding.
Physician documentation of the type and location of wounds is required for compliant documentation. Based on the above clinical findings and your assessment, please provide the following in your progress note:
Yes, left buttock stage 3 pressure injury/right buttock stage 2 pressure injury/sacrum stage 2 pressure injury, POA
No, pressure injury(ies)
Other (please specify)
1. Location of the ulcer/wound, including laterality.
2. Type (etiology) of ulcer/wound:
- Diabetic ulcer
- Arterial (ischemic) ulcer
- Traumatic wound
- Venous stasis ulcer
- Pressure (decubitus) ulcer
- Non-healing surgical wound
- Other
- Unable to determine
3. For a pressure ulcer, please also include the stage* of the ulcer:
- Stage 1 - Skin intact, non-blanchable redness
- Stage 2 - Partial thickness loss of dermis, includes intact or open blister
- Stage 3 - Full thickness tissue not including bone, tendon or muscle
- Stage 4 - Full thickness tissue loss, including exposed bone, tendon or muscle
- Unstageable - Full thickness loss in which the base of the ulcer is covered by slough (yellow, gutierrez, godoy, green or brown) and/or eschar (gutierrez, brown or black) in the wound bed.
- Unable to determine
Use of terms such as suspected, likely, concern for, or probable (associated with a specific diagnosis that is being evaluated, monitored, or treated as if it exists) are acceptable and can be coded in the inpatient setting, when documented at the
time of discharge.
Thank you,
Jaqueline Bethea RN BSN CCDS
CDI Specialist
Please contact via tiger text
Please use your independent medical judgment in providing your response.
*Source: National Pressure Ulcer Advisory Panel (NPUAP)
--- NOTE | 2024-11-03 07:38 | PN.CDI ---
Addendum entered and electronically signed by Keyur aCrpenter MD 11/03/24 09:24:
not caring for this patient
Original Note:
CDI
- -
CDI:
Physician Documentation Request
Admit Date: 11/01/24 13:27
Dear Doctor Jayden,
Please review the following and provide your response in the progress notes.
Clinical Indicators:
Clinical Indicators:
11/02/24 14:41 - Wound Note
#Wound Location and type/assessment:
#...Patient admitted with: L buttock, close to Coccyx a stage 3 PI.
#...R distal buttock stage 2 PI.
#...Sacrum suspected stage 2 PI, blanchable red skin surrounding.
Physician documentation of the type and location of wounds is required for compliant documentation. Based on the above clinical findings and your assessment, please provide the following in your progress note:
Yes, left buttock stage 3 pressure injury/right buttock stage 2 pressure injury/sacrum stage 2 pressure injury, POA
No, pressure injury(ies)
Other (please specify)
1. Location of the ulcer/wound, including laterality.
2. Type (etiology) of ulcer/wound:
- Diabetic ulcer
- Arterial (ischemic) ulcer
- Traumatic wound
- Venous stasis ulcer
- Pressure (decubitus) ulcer
- Non-healing surgical wound
- Other
- Unable to determine
3. For a pressure ulcer, please also include the stage* of the ulcer:
- Stage 1 - Skin intact, non-blanchable redness
- Stage 2 - Partial thickness loss of dermis, includes intact or open blister
- Stage 3 - Full thickness tissue not including bone, tendon or muscle
- Stage 4 - Full thickness tissue loss, including exposed bone, tendon or muscle
- Unstageable - Full thickness loss in which the base of the ulcer is covered by slough (yellow, gutierrez, godoy, green or brown) and/or eschar (gutierrez, brown or black) in the wound bed.
- Unable to determine
Use of terms such as suspected, likely, concern for, or probable (associated with a specific diagnosis that is being evaluated, monitored, or treated as if it exists) are acceptable and can be coded in the inpatient setting, when documented at the
time of discharge.
Thank you,
Jaqueline Bethea RN BSN CCDS
CDI Specialist
Please contact via tiger text
Please use your independent medical judgment in providing your response.
[2024-11-03 08:08] LABS: Glucose - Point of Care 92 mg/dl (70-99)
[2024-11-03] MEDS: D5/0.45%NACL 1000 IV (09:07)
[2024-11-03] MEDS: NAMENDA 10 MG PO ×2 (09:08→22:01)
[2024-11-03] MEDS: ZYLOPRIM 300 MG PO (09:08)
[2024-11-03] MEDS: VITAMIN D3 (cholecalciferol) 50 MCG PO (09:08)
[2024-11-03] MEDS: ZOLOFT 50 MG PO (09:08)
[2024-11-03] MEDS: SINEMET 25-250 1 TABLET PO ×4 (09:08→22:01)
[2024-11-03] MEDS: CLARITIN 10 MG PO (09:08)
[2024-11-03] MEDS: WELLBUTRIN SR (12 hour sustained release) 150 MG PO ×2 (09:08→22:01)
[2024-11-03] MEDS: MIRALAX 17 GRAMS PO (09:09)
[2024-11-03] MEDS: FOLVITE 50.2 MG IV (09:09)
[2024-11-03] MEDS: SINGULAIR 10 MG PO (09:09)
[2024-11-03] MEDS: VITAMIN B-12 1000 MCG PO (09:09)
[2024-11-03 12:39] LABS: Glucose - Point of Care 92 mg/dl (70-99)
[2024-11-03] MEDS: ROCEPHIN 1000 MG IV (14:15)
[2024-11-03] MEDS: STERILE WATER FOR INJECTION 10 ML IV (14:17)
--- NOTE | 2024-11-03 14:49 | W.PN.HOSP.TC ---
Addendum entered and electronically signed by Harpal Jackson MD 11/03/24 15:12:
left buttock stage 3 pressure injury/right buttock stage 2 pressure injury/sacrum stage 2 pressure injury, POA
Original Note:
Today's Communication/Plan
-
Assessment / Plan
Assessment / Plan
69yo M with PMHx of lewy body dementia, parkinsons, DM, HTN, HLD brought with lethargy, found hypoglycemia and possible UTI
A/P:
#Acute metabolic encephalopathy 2/2 combination of hypoglycemia and UTI on parkinsons and Lewy body dementia
hold off oral DM meds
accuchecks, D5W
Ceftriaxone, Ucx growing Klebsiella
US renal
Bcx NTD
Head CT - patient unsafe to go to the scan as per RN since he is not steady
cont home meds
#Anemia
#folate deficiency
Folate IVF, follow CBC
#Mild CPK elevation
suspect 2/2 agitation
cont IVF
#Chronic dysphagia
aspiration precautions
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
Dysphagia diet
#Hypokalemia
#hypomagnesemia
repleate, follow
#DM type 2 with unspecified complications with hypoglycemia
stop oral antiglycemics
Accuchecks
#gout
#ASCVD
#Anxiety
#COPD/Asthma not in exacerbation
#HLD
cont home meds, stop statin, start Zetia due to milf CPK elevation -cannot exclude statin reaction
DVT ppx Lovenox
DNR/DNI
at bedside.
Discussed possible outcomes that he could improve or he could continue to deteriorate. If that happens then would consider going towards hospice.
Unfortunately she just lost her mother. Reviewing is Saturday and is Saturday. Therefore at this time we will see where clinical course goes in the next 48 hours prior to making any decisions.
Anticipated Discharge: > 48 hours
Subjective/Interval History
-
Date of Service: November 03, 2024
seen and exmained. no acute overnight events
Objective Data
-
Labs:
Laboratory Results
11/03/24
03:14
WBC 6.9
Hgb 12.8 L
Hct 38.6 L
Plt Count 200
Sodium 139
Potassium 4.1
Chloride 108 H
Carbon Dioxide 29
BUN 7 L
Creatinine 0.7
Glucose 85
Calcium 9.0
Vital Signs:
Vital Signs
Temp Pulse Resp BP Pulse Ox
97.6 F 66 17 93/55 97
11/03/24 12:14 11/03/24 12:00 11/03/24 12:00 11/03/24 12:00 11/02/24 16:14
--- NOTE | 2024-11-03 16:22 | PTCARENOTE ---
Escorted to CT scan today- completed. OOB to recliner chair today x1 hour able to bear weight pivoted to chair from stretcher. Restraints removed at that time and present. He is very strong, impulsive. Repositioned. After left he is
yelling out moving all extremities. PO PRN Ativan to be given. Restraints renewed, reapplied. aware.
[2024-11-03] MEDS: CRESTOR 5 MG PO (16:37)
[2024-11-03] MEDS: LOVENOX 40 MG SC (16:37)
[2024-11-03] MEDS: ATIVAN 0.25 MG PO ×2 (16:37→22:01)
[2024-11-03] MEDS: LOW STRENGTH ASPIRIN 81 MG PO (16:37)
--- NOTE | 2024-11-03 16:52 | CM ---
Patient with Hx lewy body dementia, Parkinsons with Dx JOSE 2/2 hypoglycemia and UTI. Room air. Receiving IVF, IV Abx, PO Ativan prn. Seen by wound care nurse- air mattress for pressure injuries. Per nurse; confused, restraints.
Messages with Dr Jackson; [facility] discussions initiated. aware that just lost her mother and is planning her this week. Will observe patient's clinical status over the next 48 hrs prior to making any decisions.
CM continuing to follow.
Plan TBD.
[2024-11-03 18:53] LABS: Glucose - Point of Care 91 mg/dl (70-99)
[2024-11-03 21:49] LABS: Glucose - Point of Care 99 mg/dl (70-99)
[2024-11-03] MEDS: ARICEPT 10 MG PO (22:01)
[2024-11-04] VITALS (10 sets, daily range): BP systolic 105–141; BP diastolic 65–99; BMI 26.2
[2024-11-04] MEDS: D5/0.45%NACL 1000 IV ×2 (03:17→18:26)
[2024-11-04 04:29] LABS: Hematocrit 40.5 % (39.0-52.0); Hemoglobin 13.4 g/dL (13.0-18.0); Mean Corp Hgb Conc. 33.1 g/dL (33.0-37.0); Mean Corpuscular Volume 97.1 fL (80.0-94.0); Platelet Count 197 10^3/uL (130-400); Red Cell Dist. Width 14.0 % (11.5-14.5)
[2024-11-04 04:52] LABS: Blood Urea Nitrogen 7 mg/dl (9-20); Calcium 9.2 mg/dl (8.4-10.2); Carbon Dioxide 26 mmol/L (22-30); Chloride 108 mmol/L (98-107); Estimated Creatinine Clearance 121 ml/min; Glucose 84 mg/dl (70-99); Potassium 3.9 mmol/L (3.5-5.1); Sodium 140 mmol/L (135-145); eGFR > 60.00
--- NOTE | 2024-11-04 05:27 | PTCARENOTE ---
Received pt at change of shift. Pt confused, b/l soft limb restraints with [address] and effective[address] Pt not redirectable and follows minimal commands. D5 1/2 NSS infusing through RFA IV. Accuchecks are WNL; no Dextrose administered
this shift. Hygiene care provided.
[2024-11-04 08:23] LABS: Glucose - Point of Care 90 mg/dl (70-99)
--- NOTE | 2024-11-04 08:34 | PTCARENOTE ---
Patient received from contact printer dry film. Patient resting comfortably in bed. AAOx0 if any to self, VSS. Patient in 2 point wrist restraints and mitts. Continuing IV fluids and ABX and accuchecks. No testing scheduled at this time. Call varner in
reach.
[2024-11-04] MEDS: MIRALAX 17 GRAMS PO (10:03)
[2024-11-04] MEDS: VITAMIN B-12 1000 MCG PO (10:03)
[2024-11-04] MEDS: ZYLOPRIM 300 MG PO (10:03)
[2024-11-04] MEDS: VITAMIN D3 (cholecalciferol) 50 MCG PO (10:03)
[2024-11-04] MEDS: ZOLOFT 50 MG PO (10:03)
[2024-11-04] MEDS: SINEMET 25-250 1 TABLET PO ×4 (10:03→21:06)
[2024-11-04] MEDS: NAMENDA 10 MG PO ×2 (10:03→21:08)
[2024-11-04] MEDS: WELLBUTRIN SR (12 hour sustained release) 150 MG PO (10:03)
[2024-11-04] MEDS: SINGULAIR 10 MG PO (10:03)
[2024-11-04] MEDS: CLARITIN 10 MG PO (10:03)
[2024-11-04] MEDS: FOLVITE 50.2 MG IV (10:03)
[2024-11-04] MEDS: ATIVAN 0.25 MG PO (11:58)
--- NOTE | 2024-11-04 12:41 | W.PN.HOSP.TC ---
Today's Communication/Plan
-
monitor mentation
Wean off restraints as tolerated
IV fluid for 24 hours
IV antibiotic
Long-term prognosis guarded
Assessment / Plan
Assessment / Plan
69yo M with PMHx of lewy body dementia, parkinsons, DM, HTN, HLD brought with lethargy, found hypoglycemia and possible UTI
A/P:
#Acute metabolic encephalopathy 2/2 combination of hypoglycemia and UTI on parkinsons and Lewy body dementia
hold off oral DM meds
accuchecks, D5W
Ceftriaxone, Ucx growing Klebsiella
US renal Limited visualization of the left kidney. Right kidney measures 10.9 x 6.0 x 5.0 cm. Within the limitations, no overt hydronephrosis, contour deforming solid renal mass or echogenic shadowing foci to suggest renal calculi.
Bcx NTD
Head CT - Moderate cerebral atrophy along with chronic small vessel ischemia in the cerebral white matter. Findings have progressed compared with prior CT
cont home meds
#Anemia
#folate deficiency
Folate IVF, follow CBC
#Mild CPK elevation
suspect 2/2 agitation
cont IVF
#Chronic dysphagia
aspiration precautions
PRECINCT POLICE SERGEANT
Dysphagia diet
#Hypokalemia
#hypomagnesemia
repleate, follow
#DM type 2 with unspecified complications with hypoglycemia
stop oral antiglycemics
Accuchecks
#gout
#ASCVD
#Anxiety
#COPD/Asthma not in exacerbation
#HLD
DVT ppx Lovenox
DNR/DNI
Dr. Jackson discussed with at bedside. Discussed possible outcomes that he could improve or he could continue to deteriorate. If that happens then would consider going towards hospice. Unfortunately she just lost her mother. Reviewing is
Saturday and is Saturday. Therefore at this time we will see where clinical course goes in the next 48 hours prior to making any decisions.
Anticipated Discharge: > 48 hours
Subjective/Interval History
-
Date of Service: November 04, 2024
Remains confused
Remains on restraints
Objective Data
-
Labs:
Laboratory Results
11/04/24
04:14
WBC 7.8
Hgb 13.4
Hct 40.5
Plt Count 197
Sodium 140
Potassium 3.9
Chloride 108 H
Carbon Dioxide 26
BUN 7 L
Creatinine 0.7
Glucose 84
Calcium 9.2
Vital Signs:
Vital Signs
Temp Pulse Resp BP Pulse Ox
97.4 F 99 23 130/82 95
11/04/24 07:08 11/04/24 06:05 11/04/24 06:05 11/04/24 06:05 11/04/24 11:39
I&O
11/03/24 11/04/24 11/05/24
06:59 06:59 06:59
Intake Total 2890 / 2890
Balance 2890 / 2890
Physical Exam
-
General: No Apparent Distress
HEENT: Normocephalic
Respiratory: Clear to Auscultation
Cardiac: Regular Rhythm
GI: Soft, Nontender and Nondistended
Musculoskeletal: No Clubbing, No Cyanosis and No Edema
Skin: Warm and Other (Skin bruising noted bilateral knees)
Neuro: Awake
Psych: Confused and Apparent Dementia
[2024-11-04 12:54] LABS: Glucose - Point of Care 86 mg/dl (70-99)
[2024-11-04] MEDS: ROCEPHIN 1000 MG IV (14:10)
[2024-11-04] MEDS: STERILE WATER FOR INJECTION 10 ML IV (14:10)
[2024-11-04 18:21] LABS: Glucose - Point of Care 104 mg/dl (70-99)
[2024-11-04] MEDS: LOVENOX 40 MG SC (18:27)
[2024-11-04] MEDS: LOW STRENGTH ASPIRIN 81 MG PO (18:28)
[2024-11-04] MEDS: CRESTOR 5 MG PO (18:28)
[2024-11-04] MEDS: ARICEPT 10 MG PO (21:08)
[2024-11-04] MEDS: WELLBUTRIN SR (12 hour sustained release) PO (21:14)
[2024-11-04 21:36] LABS: Glucose - Point of Care 115 mg/dl (70-99)
[2024-11-05] VITALS (11 sets, daily range): BP systolic 94–160; BP diastolic 61–93; BMI 26.1
[2024-11-05] MEDS: ATIVAN 0.25 MG PO ×2 (00:05→16:37)
--- NOTE | 2024-11-05 01:03 | PTCARENOTE ---
Assumed care for patient overnight. Pt AAOx1, patient oriented to self and answers appropriately when prompted. Pt in 4-point soft wrist restraints as well as b/l mitts for protective intervention see orders. Pt restless in bed. Pt has full body
tremors. Pt noted to be diaphoretic with 2mm R pupils 3mm L pupils. Pupils sluggish. Pt increasingly agitated and anxious. PRN dose of Ativan administered see JUL. ROSELINE Alfaro notified and came bedside to assess the pt. New orders for a STAT head
CT. One time dose of Ofirmev for diaphoresis.
--- NOTE | 2024-11-05 01:37 | W.PN.UPDATE ---
Update Note
Progress Note Update
RN noted that patient had unequal pupil sizes and they were mildly sluggish.- upon assessment pts pupils were R>L and mildly sluggish- BS was 115 on last check- VSS. Pt moving all extremities appropriately.- Awake and alert but oriented to self only
with noted aphasia. pt appears less restless in bed following Ativan dose. Pt with noted diaphoresis- offirmiv ordered. Pt had a CT scan on that noted-Moderate cerebral atrophy along with chronic small vessel ischemia in the cerebral white
matter. Findings have progressed compared with prior CT. No change in small left middle cranial fossa arachnoid cyst. No acute CT findings in head. Discussed with Dr. Brink and he agreed on sending the pt for a repeat CT scan d/t the lack of
previous documentation on the pts pupil size- tried to call the Lakeisha ) to discuss this plan of care but her phone went straight to voicemail. CT ordered out of an abundance of caution. CT read: No acute intracranial abnormalities,
no infarct or hemorrhage, mass effect or midline shift. Hyperostosis frontalis interna.�Cont. Neuro checks.�
--- NOTE | 2024-11-05 02:00 | PTCARENOTE ---
Patient transported to head CT in the bed.
[2024-11-05] MEDS: OFIRMEV 100 IV (02:34)
[2024-11-05 04:52] LABS: Hematocrit 37.5 % (39.0-52.0); Hemoglobin 12.6 g/dL (13.0-18.0); Mean Corp Hgb Conc. 33.6 g/dL (33.0-37.0); Mean Corpuscular Volume 96.4 fL (80.0-94.0); Platelet Count 194 10^3/uL (130-400); Red Cell Dist. Width 14.0 % (11.5-14.5)
[2024-11-05 05:56] LABS: Blood Urea Nitrogen 8 mg/dl (9-20); Calcium 8.9 mg/dl (8.4-10.2); Carbon Dioxide 26 mmol/L (22-30); Chloride 108 mmol/L (98-107); Estimated Creatinine Clearance 105 ml/min; Glucose 91 mg/dl (70-99); Potassium 3.8 mmol/L (3.5-5.1); Sodium 138 mmol/L (135-145); eGFR > 60.00
[2024-11-05 07:47] LABS: Glucose - Point of Care 81 mg/dl (70-99)
--- NOTE | 2024-11-05 08:32 | PTCARENOTE ---
Patient received from security shift manager. Patient resting comfortably in bed. AAOx0 if any to self, VSS. Patient remains in 4 points restraints and mitts. Patient with suspected seizure like activity, CT was obtained and negative. Continuing IV fluids
and ABX and accuchecks. No testing scheduled at this time. Call varner in reach.
[2024-11-05] MEDS: VITAMIN B-12 1000 MCG PO (09:21)
[2024-11-05] MEDS: MIRALAX 17 GRAMS PO (09:21)
[2024-11-05] MEDS: NAMENDA 10 MG PO ×2 (09:21→21:22)
[2024-11-05] MEDS: ZOLOFT 50 MG PO (09:21)
[2024-11-05] MEDS: ZYLOPRIM 300 MG PO (09:21)
[2024-11-05] MEDS: CLARITIN 10 MG PO (09:21)
[2024-11-05] MEDS: SINEMET 25-250 1 TABLET PO ×4 (09:21→21:20)
[2024-11-05] MEDS: SINGULAIR 10 MG PO (09:21)
[2024-11-05] MEDS: WELLBUTRIN SR (12 hour sustained release) 150 MG PO ×2 (09:21→21:22)
[2024-11-05] MEDS: VITAMIN D3 (cholecalciferol) 50 MCG PO (09:21)
[2024-11-05] MEDS: FOLVITE 50.2 MG IV (09:22)
[2024-11-05 09:38] LABS: Glucose - Point of Care 72 mg/dl (70-99)
[2024-11-05 11:52] LABS: Glucose - Point of Care 108 mg/dl (70-99)
[2024-11-05 11:58] LABS: Magnesium 1.9 mg/dl (1.6-2.3)
[2024-11-05 12:14] LABS: Troponin I < 0.012 ng/ml
--- NOTE | 2024-11-05 12:55 | W.PN.HOSP.TC ---
Addendum entered and electronically signed by Jean Burnett MD 11/05/24 14:20:
Updated spouse at bedside in details. Explained this possible multiple medical problem and goal of trying to wean off oxygenation, IV fluids and hoping patient with increased appetite. Discussed possible outcomes that he could improve or he could
continue to deteriorate. If that happens then would consider going towards hospice. Unfortunately she just lost her mother. Reviewing is Saturday and is Saturday. Therefore at this time we will see where clinical course goes in the next 48
hours prior to making any decisions. Spouse was emotional/crying but appreciative.
Addendum entered and electronically signed by Jean Burnett MD 11/05/24 13:12:
EKG noted with severe tachycardia which seems artifact due to tremors. No chest pain. 1st set of troponin negative.
Also overnight events noted of left pupil unequal-repeat CT head found to be negative for acute CVA. Monitor for now. Cont w/aspirin.
Original Note:
Today's Communication/Plan
-
IVF
wean off restraints
IV abx
Assessment / Plan
Assessment / Plan
69yo M with PMHx of lewy body dementia, parkinsons, DM, HTN, HLD brought with lethargy, found hypoglycemia and possible UTI
A/P:
#Acute metabolic encephalopathy 2/2 combination of hypoglycemia and UTI on parkinsons and Lewy body dementia With episode of agitation
hold off oral DM meds
accuchecks, D5W
Ceftriaxone, Ucx growing Klebsiella
US renal Limited visualization of the left kidney. Right kidney measures 10.9 x 6.0 x 5.0 cm. Within the limitations, no overt hydronephrosis, contour deforming solid renal mass or echogenic shadowing foci to suggest renal calculi.
Bcx NTD
Head CT - Moderate cerebral atrophy along with chronic small vessel ischemia in the cerebral white matter. Findings have progressed compared with prior CT
cont home meds
Wean off restraints as possible
Cont w/modified diet
#Anemia
#folate deficiency
Folate IVF, follow CBC
#Mild CPK elevation
suspect 2/2 agitation
cont IVF
#Chronic dysphagia
aspiration precautions
IT INTERN
Dysphagia diet
#Hypokalemia
#hypomagnesemia
repleate, follow
#DM type 2 with unspecified complications with hypoglycemia
stop oral antiglycemics
Accuchecks
#Tachycardia on monitor likely artifact due to tremors
Troponin check first set negative. Check 1 more.
Check electrolytes.
#gout
#ASCVD
#Anxiety
#COPD/Asthma not in exacerbation
#HLD
DVT ppx Lovenox
DNR/DNI
Dr. Jackson discussed with at bedside. Discussed possible outcomes that he could improve or he could continue to deteriorate. If that happens then would consider going towards hospice. Unfortunately she just lost her mother. Reviewing is
Saturday and is Saturday. Therefore at this time we will see where clinical course goes in the next 48 hours prior to making any decisions.
Anticipated Discharge: > 48 hours
Subjective/Interval History
-
Date of Service: November 05, 2024
remains in mitts
had episode of tachycardia on monitor-but seems related to tremors
Objective Data
-
Labs:
Laboratory Results
11/05/24
04:33
WBC 7.4
Hgb 12.6 L
Hct 37.5 L
Plt Count 194
Sodium 138
Potassium 3.8
Chloride 108 H
Carbon Dioxide 26
BUN 8 L
Creatinine 0.8
Glucose 91
Calcium 8.9
Vital Signs:
Vital Signs
Temp Pulse Resp BP Pulse Ox
97.7 F 67 14 101/76 96
11/05/24 11:20 11/05/24 06:00 11/05/24 06:00 11/05/24 06:00 11/05/24 03:17
I&O
11/04/24 11/05/24 11/06/24
06:59 06:59 06:59
Intake Total 2890 / 2890 700 / 700
Output Total 250 / 250
Balance 2890 / 2890 450 / 450
Data Reviewed
-
Total Time Spent with Patient (in minutes): 55
[2024-11-05] MEDS: D5/0.45%NACL IV (13:57)
[2024-11-05] MEDS: D5/0.45%NACL 1000 IV (14:13)
[2024-11-05] MEDS: STERILE WATER FOR INJECTION 10 ML IV (14:15)
[2024-11-05] MEDS: ROCEPHIN 1000 MG IV (14:15)
[2024-11-05] MEDS: SENOKOT-S 1 TABLET PO (14:27)
[2024-11-05] MEDS: DULCOLAX 10 MG RECTAL (15:24)
[2024-11-05 17:29] LABS: Glucose - Point of Care 97 mg/dl (70-99)
[2024-11-05 17:59] LABS: Troponin I < 0.012 ng/ml
[2024-11-05] MEDS: ATIVAN 0.5 MG PO (18:07)
[2024-11-05] MEDS: LOVENOX 40 MG SC (18:08)
[2024-11-05] MEDS: CRESTOR 5 MG PO (18:09)
[2024-11-05] MEDS: LOW STRENGTH ASPIRIN 81 MG PO (18:09)
[2024-11-05] MEDS: ARICEPT 10 MG PO (21:22)
[2024-11-05 21:29] LABS: Glucose - Point of Care 91 mg/dl (70-99)
[2024-11-06] VITALS (11 sets, daily range): BP systolic 111–136; BP diastolic 75–97; BMI 26.0
[2024-11-06 05:01] LABS: Hematocrit 36.9 % (39.0-52.0); Hemoglobin 12.3 g/dL (13.0-18.0); Mean Corp Hgb Conc. 33.3 g/dL (33.0-37.0); Mean Corpuscular Volume 96.6 fL (80.0-94.0); Platelet Count 270 10^3/uL (130-400); Red Cell Dist. Width 14.2 % (11.5-14.5)
[2024-11-06] MEDS: D5/0.45%NACL 1000 IV (06:18)
[2024-11-06 06:40] LABS: Blood Urea Nitrogen 11 mg/dl (9-20); Calcium 8.9 mg/dl (8.4-10.2); Carbon Dioxide 27 mmol/L (22-30); Chloride 107 mmol/L (98-107); Estimated Creatinine Clearance 105 ml/min; Glucose 93 mg/dl (70-99); Potassium 3.8 mmol/L (3.5-5.1); Sodium 140 mmol/L (135-145); eGFR > 60.00
[2024-11-06 07:54] LABS: Glucose - Point of Care 87 mg/dl (70-99)
[2024-11-06] MEDS: SINEMET 25-250 1 TABLET PO ×4 (09:43→20:56)
[2024-11-06] MEDS: ZYLOPRIM 300 MG PO (09:43)
[2024-11-06] MEDS: FOLVITE 50.2 MG IV (09:43)
[2024-11-06] MEDS: NAMENDA 10 MG PO ×2 (09:43→20:56)
[2024-11-06] MEDS: VITAMIN B-12 1000 MCG PO (09:43)
[2024-11-06] MEDS: ZOLOFT 50 MG PO (09:44)
[2024-11-06] MEDS: WELLBUTRIN SR (12 hour sustained release) 150 MG PO ×2 (09:44→20:56)
[2024-11-06] MEDS: SINGULAIR 10 MG PO (09:44)
[2024-11-06] MEDS: CLARITIN 10 MG PO (09:45)
[2024-11-06] MEDS: MIRALAX PO (09:45)
--- NOTE | 2024-11-06 10:26 | W.PN.HOSP.TC ---
Today's Communication/Plan
-
Continue with IV fluids
Wean off restraints as possible
No further episode of hypoglycemia noted
Can transfer out of IMU
Assessment / Plan
Assessment / Plan
69yo M with PMHx of lewy body dementia, parkinsons, DM, HTN, HLD brought with lethargy, found hypoglycemia and possible UTI
A/P:
#Acute metabolic encephalopathy 2/2 combination of hypoglycemia and UTI on parkinsons and Lewy body dementia With episode of agitation
hold off oral DM meds
accuchecks, D5W
Ceftriaxone, Ucx growing Klebsiella
US renal Limited visualization of the left kidney. Right kidney measures 10.9 x 6.0 x 5.0 cm. Within the limitations, no overt hydronephrosis, contour deforming solid renal mass or echogenic shadowing foci to suggest renal calculi.
Bcx NTD
Head CT - Moderate cerebral atrophy along with chronic small vessel ischemia in the cerebral white matter. Findings have progressed compared with prior CT
cont home meds
Wean off restraints as possible
Cont w/modified diet
Repeat CT head for performed on 11/05/2024 for location and consistent pupil size. CAT scan negative for acute stroke. No acute intracranial abnormality noted.
#Anemia
#folate deficiency
Folate IVF, follow CBC
#Mild CPK elevation
suspect 2/2 agitation
cont IVF
#Chronic dysphagia
aspiration precautions
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
Dysphagia diet
#Hypokalemia
#hypomagnesemia
replete, follow
#DM type 2 with unspecified complications with hypoglycemia
stop oral antiglycemics
Accuchecks
#Tachycardia on monitor likely artifact due to tremors
TROP is negative.
Check electrolytes.
HR stabilized
EKG noted with severe tachycardia which seems artifact due to tremors. No chest pain. troponin negative.
#gout
#ASCVD
#Anxiety
#COPD/Asthma not in exacerbation
#HLD
DVT ppx Lovenox
DNR/DNI
Updated spouse at bedside in details on 11/06/24. Explained this possible multiple medical problem and goal of trying to wean off oxygenation, IV fluids and hoping patient with increased appetite. Discussed possible outcomes that he could improve
or he could continue to deteriorate. If that happens then would consider going towards hospice. Unfortunately she just lost her mother. Reviewing is Saturday and is Saturday. Therefore at this time we will see where clinical course goes in
the next 48 hours prior to making any decisions. Spouse was emotional/crying but appreciative.
Anticipated Discharge: > 48 hours
Subjective/Interval History
-
Date of Service: November 06, 2024
More awake this morning
Objective Data
-
Labs:
Laboratory Results
11/06/24 11/06/24
04:25 06:12
WBC 9.9
Hgb 12.3 L
Hct 36.9 L
Plt Count 270 D
Sodium Cancelled 140
Potassium Cancelled 3.8
Chloride Cancelled 107
Carbon Dioxide Cancelled 27
BUN Cancelled 11
Creatinine Cancelled 0.8
Glucose Cancelled 93
Calcium Cancelled 8.9
Vital Signs:
Vital Signs
Temp Pulse Resp BP Pulse Ox
97.9 F 94 27 119/77 96
11/06/24 07:15 11/06/24 08:00 11/06/24 08:00 11/06/24 06:00 11/05/24 20:56
I&O
11/05/24 11/06/24 11/07/24
06:59 06:59 06:59
Intake Total 700 / 700 600 / 600
Output Total 650 / 650 200 / 200
Balance 50 / 50 400 / 400
Data Reviewed
-
Total Time Spent with Patient (in minutes): 55
[2024-11-06] MEDS: VITAMIN D3 (cholecalciferol) PO (11:16)
[2024-11-06 12:20] LABS: Glucose - Point of Care 88 mg/dl (70-99)
--- NOTE | 2024-11-06 13:17 | CM ---
Patient with Hx lewy body dementia, Parkinsons with Dx JOSE 2/2 hypoglycemia and UTI. Ongoing GOC discussions per MD. Room air. Dysphagia diet. Receiving IVF, IV Abx. Seen by wound care nurse- air mattress for pressure injuries. Per nurse;
confused, restraints.
Patient's just lost her mother, with tomorrow.
CM continuing to follow.
Plan TBD.
[2024-11-06] MEDS: ROCEPHIN 1000 MG IV (14:45)
[2024-11-06] MEDS: STERILE WATER FOR INJECTION 10 ML IV (14:46)
--- NOTE | 2024-11-06 15:00 | PTCARENOTE ---
Patient confused and restless. Continued use of restraints are still necessary for protection. Patient is a feed with pureed diet and aspiration precautions. Poor appetite. IV fluids infusing as ordered. VS stable.
[2024-11-06 17:16] LABS: Glucose - Point of Care 106 mg/dl (70-99)
[2024-11-06] MEDS: LOVENOX 40 MG SC (18:04)
[2024-11-06] MEDS: CRESTOR 5 MG PO (18:05)
[2024-11-06] MEDS: LOW STRENGTH ASPIRIN 81 MG PO (18:05)
[2024-11-06] MEDS: ARICEPT 10 MG PO (20:56)
[2024-11-06] MEDS: ATIVAN 0.25 MG PO (20:58)
[2024-11-06 21:00] LABS: Glucose - Point of Care 89 mg/dl (70-99)
--- NOTE | 2024-11-06 22:22 | PTCARENOTE ---
Pt received at beginning of shift resting in bed. AAOx1. Confused, restless, yelling out at times, full body tremors from Parkinson's. Able to state his first name only. 4 pt soft limb restraints to all extremities in place with mitts and all four
side rails up. VSS. Afebrile. SR/ST/1degree/PVC on CM rate 90's-120's. Tachypneic into the upper 20's. Incontinent large amounts of urine with perineal care completed. No BM. Diaphoretic on face only. Accucheck 89. IVF's infusind as ordered. Rest of
assessment as documented. Able to take meds crushed in a small amount of applesauce. Maintained on Q2hr turns. Will continue to monitor.
[2024-11-07] VITALS: BP 124/75
[2024-11-07] MEDS: D5/0.45%NACL 1000 IV ×2 (00:03→15:05)
[2024-11-07 03:38] LABS: Hematocrit 39.0 % (39.0-52.0); Hemoglobin 12.9 g/dL (13.0-18.0); Mean Corp Hgb Conc. 33.1 g/dL (33.0-37.0); Mean Corpuscular Volume 96.3 fL (80.0-94.0); Platelet Count 194 10^3/uL (130-400); Red Cell Dist. Width 13.8 % (11.5-14.5)
[2024-11-07 03:51] LABS: Blood Urea Nitrogen 11 mg/dl (9-20); Calcium 8.6 mg/dl (8.4-10.2); Carbon Dioxide 23 mmol/L (22-30); Chloride 110 mmol/L (98-107); Estimated Creatinine Clearance 121 ml/min; Glucose 90 mg/dl (70-99); Potassium 3.8 mmol/L (3.5-5.1); Sodium 139 mmol/L (135-145); eGFR > 60.00
[2024-11-07 04:00] VITALS: BP 129/82
[2024-11-07 04:24] VITALS: BMI 25.6
[2024-11-07 08:56] LABS: Glucose - Point of Care 93 mg/dl (70-99)
[2024-11-07] MEDS: FOLVITE 50.2 MG IV (09:15)
[2024-11-07] MEDS: CLARITIN 10 MG PO (09:15)
[2024-11-07] MEDS: MIRALAX PO (09:15)
[2024-11-07] MEDS: WELLBUTRIN SR (12 hour sustained release) 150 MG PO ×2 (09:16→19:10)
[2024-11-07] MEDS: ZOLOFT 50 MG PO (09:17)
[2024-11-07] MEDS: SINGULAIR 10 MG PO (09:19)
[2024-11-07] MEDS: SINEMET 25-250 1 TABLET PO ×4 (09:19→21:48)
[2024-11-07] MEDS: NAMENDA 10 MG PO ×2 (09:19→19:10)
[2024-11-07] MEDS: ZYLOPRIM 300 MG PO (09:20)
[2024-11-07] MEDS: VITAMIN D3 (cholecalciferol) 50 MCG PO (09:20)
[2024-11-07] MEDS: VITAMIN B-12 1000 MCG PO (09:21)
[2024-11-07 13:03] LABS: Glucose - Point of Care 71 mg/dl (70-99)
--- NOTE | 2024-11-07 13:16 | W.PN.HOSP.TC ---
Today's Communication/Plan
-
IV fluid. IV antibiotic
Assessment / Plan
Assessment / Plan
Physical exam:
General: Acute on chronically ill
HEENT: Normocephalic, Atraumatic and Moist Mucous Membranes
Respiratory: Clear to Auscultation; Negative Wheezes, Rales or Rhonchi
Cardiac: Regular Rhythm and S1/S2
GI: Soft, Nontender and Nondistended
Musculoskeletal: No Clubbing, No Cyanosis and No Edema
Neuro: Awake, Alert and Disoriented, no gross neurological deficit
Psych: Calm
A/P:
69yo M with PMHx of lewy body dementia, parkinsons, DM, HTN, HLD brought with lethargy, found hypoglycemia and possible UTI
A/P:
#Acute metabolic encephalopathy 2/2 combination of hypoglycemia and UTI on parkinsons and Lewy body dementia With episode of agitation
hold off oral DM meds
accuchecks, D5W
Ceftriaxone, Ucx growing Klebsiella
US renal Limited visualization of the left kidney. Right kidney measures 10.9 x 6.0 x 5.0 cm. Within the limitations, no overt hydronephrosis, contour deforming solid renal mass or echogenic shadowing foci to suggest renal calculi.
Bcx NTD
Head CT - Moderate cerebral atrophy along with chronic small vessel ischemia in the cerebral white matter. Findings have progressed compared with prior CT
cont home meds
Wean off restraints as possible
Cont w/modified diet
Repeat CT head for performed on 11/05/2024 for location and consistent pupil size. CAT scan negative for acute stroke. No acute intracranial abnormality noted.
Remains on restraints
Discussed with RN at bedside
#Anemia
#folate deficiency
Folate IVF, follow CBC
#Mild CPK elevation
suspect 2/2 agitation
cont IVF
#Chronic dysphagia
aspiration precautions
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
Dysphagia diet
#Hypokalemia
#hypomagnesemia
replete, follow
#DM type 2 with unspecified complications with hypoglycemia
stop oral antiglycemics
Accuchecks
#Tachycardia on monitor likely artifact due to tremors
TROP is negative.
Check electrolytes.
HR stabilized
EKG noted with severe tachycardia which seems artifact due to tremors. No chest pain. troponin negative.
#gout
#ASCVD
#Anxiety
#COPD/Asthma not in exacerbation
#HLD
DVT ppx Lovenox
DNR/DNI
Dr Burnett pdated spouse at bedside in details on 11/06/24. Explained this possible multiple medical problem and goal of trying to wean off oxygenation, IV fluids and hoping patient with increased appetite. Discussed possible outcomes that he could
improve or he could continue to deteriorate. If that happens then would consider going towards hospice. Unfortunately she just lost her mother. Reviewing is Saturday and is Saturday. Therefore at this time we will see where clinical course
goes in the next 48 hours prior to making any decisions. Spouse was emotional/crying but appreciative.
Will give family some time due to above social circumstances and reengage in goals of care discussions within the next 24 to 48 hours.
Total time spent 35 minutes
Anticipated Discharge: > 48 hours
Subjective/Interval History
-
Date of Service: November 07, 2024
No new complaints. Patient encephalopathic.
Objective Data
-
Labs:
Laboratory Results
11/07/24
03:12
WBC 7.7
Hgb 12.9 L
Hct 39.0
Plt Count 194 D
Sodium 139
Potassium 3.8
Chloride 110 H
Carbon Dioxide 23
BUN 11
Creatinine 0.7
Glucose 90
Calcium 8.6
Vital Signs:
Vital Signs
Temp Pulse Resp BP Pulse Ox
97.3 F 72 16 129/82 97
11/07/24 11:10 11/07/24 12:00 11/07/24 12:00 11/07/24 04:00 11/06/24 21:00
I&O
11/06/24 11/07/24 11/08/24
06:59 06:59 06:59
Intake Total 600 / 600 1850 / 1850
Output Total 200 / 200 350 / 350
Balance 400 / 400 1500 / 1500
[2024-11-07] MEDS: ROCEPHIN 1000 MG IV (15:07)
[2024-11-07] MEDS: STERILE WATER FOR INJECTION 10 ML IV (15:07)
[2024-11-07 15:15] VITALS: BP 137/106
[2024-11-07 16:00] VITALS: BP 125/68
[2024-11-07] MEDS: LOW STRENGTH ASPIRIN 81 MG PO (17:30)
[2024-11-07] MEDS: CRESTOR 5 MG PO (17:30)
[2024-11-07] MEDS: LOVENOX 40 MG SC (17:31)
[2024-11-07 17:37] LABS: Glucose - Point of Care 115 mg/dl (70-99)
[2024-11-07 20:00] VITALS: BP 98/63
--- NOTE | 2024-11-07 20:27 | PTCARENOTE ---
Pt received resting in bed. AAOx1 to name only. Restless in bed. Occasionally yells out. HS meds given as ordered with mashed potatoes and corn. Pt has decreased appetite. Incontinent urine. Perineal care completed. SR/1 degree/PVC on CM rate 80's.
POX 95% on RA. Afebrile. Foams c/d/i to left butt, right butt and sacrum. Abrasions noted to B/L knees. Remains in 4 pt soft limb restraints with mitts and all four side rails up. Maintained on Q2hr turn. Rest of assessment as documented. Call varner
remain within reach. Will continue to monitor.
[2024-11-07 21:24] LABS: Glucose - Point of Care 102 mg/dl (70-99)
[2024-11-07] MEDS: ATIVAN 0.25 MG PO (21:47)
[2024-11-07] MEDS: ARICEPT 10 MG PO (21:47)
[2024-11-08] VITALS (7 sets, daily range): BP systolic 110–129; BP diastolic 73–100; BMI 25.2
[2024-11-08 04:02] LABS: Hematocrit 39.3 % (39.0-52.0); Hemoglobin 13.0 g/dL (13.0-18.0); Mean Corp Hgb Conc. 33.1 g/dL (33.0-37.0); Mean Corpuscular Volume 96.3 fL (80.0-94.0); Nucleated Red Blood Cells % 0 % (-); Platelet Count 197 10^3/uL (130-400); Red Cell Dist. Width 14.1 % (11.5-14.5)
[2024-11-08 04:28] LABS: Blood Urea Nitrogen 9 mg/dl (9-20); Calcium 8.8 mg/dl (8.4-10.2); Carbon Dioxide 24 mmol/L (22-30); Chloride 109 mmol/L (98-107); Estimated Creatinine Clearance 121 ml/min; Glucose 88 mg/dl (70-99); Potassium 3.7 mmol/L (3.5-5.1); Sodium 140 mmol/L (135-145); eGFR > 60.00
[2024-11-08 07:30] LABS: Glucose - Point of Care 82 mg/dl (70-99)
--- NOTE | 2024-11-08 08:48 | W.PN.HOSP.TC ---
Today's Communication/Plan
-
IV antibiotics.
Assessment / Plan
Assessment / Plan
Physical exam:
General: Acute on chronically ill
HEENT: Normocephalic, Atraumatic and Moist Mucous Membranes
Respiratory: Clear to Auscultation; Negative Wheezes, Rales or Rhonchi
Cardiac: Regular Rhythm and S1/S2
GI: Soft, Nontender and Nondistended
Musculoskeletal: No Clubbing, No Cyanosis and No Edema
Neuro: Awake, Alert and Disoriented, no gross neurological deficit
Psych: Calm
A/P:
69yo M with PMHx of lewy body dementia, parkinsons, DM, HTN, HLD brought with lethargy, found hypoglycemia and possible UTI
A/P:
#Acute metabolic encephalopathy 2/2 combination of hypoglycemia and UTI on parkinsons and Lewy body dementia With episode of agitation
hold off oral DM meds
accuchecks, D5W
Ceftriaxone, Ucx growing Klebsiella
US renal Limited visualization of the left kidney. Right kidney measures 10.9 x 6.0 x 5.0 cm. Within the limitations, no overt hydronephrosis, contour deforming solid renal mass or echogenic shadowing foci to suggest renal calculi.
Bcx NTD
Head CT - Moderate cerebral atrophy along with chronic small vessel ischemia in the cerebral white matter. Findings have progressed compared with prior CT
cont home meds
Wean off restraints as possible
Cont w/modified diet
Repeat CT head for performed on 11/05/2024 for location and consistent pupil size. CAT scan negative for acute stroke. No acute intracranial abnormality noted.
Remains on restraints
Discussed with RN at bedside
#Anemia
#folate deficiency
Folate IVF, follow CBC
#Mild CPK elevation
suspect 2/2 agitation
cont IVF
#Chronic dysphagia
aspiration precautions
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
Dysphagia diet
#Hypokalemia
#hypomagnesemia
replete, follow
#DM type 2 with unspecified complications with hypoglycemia
stop oral antiglycemics
Accuchecks
#Tachycardia on monitor likely artifact due to tremors
TROP is negative.
Check electrolytes.
HR stabilized
EKG noted with severe tachycardia which seems artifact due to tremors. No chest pain. troponin negative.
#gout
#ASCVD
#Anxiety
#COPD/Asthma not in exacerbation
#HLD
DVT ppx Lovenox
DNR/DNI
Dr Burnett pdated spouse at bedside in details on 11/06/24. Explained this possible multiple medical problem and goal of trying to wean off oxygenation, IV fluids and hoping patient with increased appetite. Discussed possible outcomes that he could
improve or he could continue to deteriorate. If that happens then would consider going towards hospice. Unfortunately she just lost her mother. Reviewing is Saturday and is Saturday. Therefore at this time we will see where clinical course
goes in the next 48 hours prior to making any decisions. Spouse was emotional/crying but appreciative.
Will give family some time due to above social circumstances and reengage in goals of care discussions within the next 24 to 48 hours. 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
Total time spent 35 minutes
Anticipated Discharge: 24 - 48 hours
Subjective/Interval History
-
Date of Service: November 08, 2024
No new events or complaints
Objective Data
-
Labs:
Laboratory Results
11/08/24
03:39
WBC 7.6
Hgb 13.0
Hct 39.3
Plt Count 197
Sodium 140
Potassium 3.7
Chloride 109 H
Carbon Dioxide 24
BUN 9
Creatinine 0.7
Glucose 88
Calcium 8.8
Vital Signs:
Vital Signs
Temp Pulse Resp BP Pulse Ox
97.5 F 80 21 115/85 95
11/08/24 08:18 11/08/24 06:00 11/08/24 06:00 11/08/24 04:00 11/07/24 20:00
I&O
11/07/24 11/08/24 11/09/24
06:59 06:59 06:59
Intake Total 1850 / 1850 720 / 720
Output Total 350 / 350
Balance 1500 / 1500 720 / 720
[2024-11-08] MEDS: MIRALAX PO (09:00)
[2024-11-08] MEDS: FOLVITE 50.2 MG IV (09:00)
[2024-11-08] MEDS: D5/0.45%NACL 1000 IV (09:00)
[2024-11-08] MEDS: CLARITIN 10 MG PO (09:01)
[2024-11-08] MEDS: WELLBUTRIN SR (12 hour sustained release) 150 MG PO ×2 (09:01→21:54)
[2024-11-08] MEDS: SINEMET 25-250 1 TABLET PO ×4 (09:01→21:54)
[2024-11-08] MEDS: ZOLOFT 50 MG PO (09:02)
[2024-11-08] MEDS: VITAMIN D3 (cholecalciferol) 50 MCG PO (09:02)
[2024-11-08] MEDS: VITAMIN B-12 1000 MCG PO (09:02)
[2024-11-08] MEDS: ZYLOPRIM 300 MG PO (09:02)
[2024-11-08] MEDS: SINGULAIR 10 MG PO (09:02)
[2024-11-08] MEDS: NAMENDA 10 MG PO ×2 (09:02→21:54)
[2024-11-08 12:20] LABS: Glucose - Point of Care 103 mg/dl (70-99)
[2024-11-08] MEDS: ROCEPHIN 1000 MG IV (13:37)
[2024-11-08] MEDS: STERILE WATER FOR INJECTION 10 ML IV (13:37)
[2024-11-08 16:46] LABS: Glucose - Point of Care 125 mg/dl (70-99)
[2024-11-08] MEDS: LOW STRENGTH ASPIRIN 81 MG PO (17:41)
[2024-11-08] MEDS: CRESTOR 5 MG PO (17:41)
[2024-11-08] MEDS: LOVENOX 40 MG SC (17:41)
[2024-11-08] MEDS: ATIVAN 0.25 MG PO (21:54)
[2024-11-08] MEDS: ARICEPT 10 MG PO (21:54)
[2024-11-08 21:55] LABS: Glucose - Point of Care 86 mg/dl (70-99)
[2024-11-09] VITALS: BP 115/71
--- NOTE | 2024-11-09 00:50 | PTCARENOTE ---
Pt received from day shift RN. Pt oriented to name and able to communicate pain when asked. Pt vitals stable at this time. Respirations even unlabored. SPo2 spot check 96-97% RA. Assessment care and vitals as charted.
[2024-11-09] MEDS: D5/0.45%NACL 1000 IV ×2 (01:56→17:15)
[2024-11-09 03:50] VITALS: BMI 25.6
[2024-11-09 04:00] VITALS: BP 126/95
[2024-11-09 04:24] LABS: Hematocrit 38.6 % (39.0-52.0); Hemoglobin 12.7 g/dL (13.0-18.0); Mean Corp Hgb Conc. 32.9 g/dL (33.0-37.0); Mean Corpuscular Volume 97.2 fL (80.0-94.0); Nucleated Red Blood Cells % 0 % (-); Platelet Count 189 10^3/uL (130-400); Red Cell Dist. Width 14.1 % (11.5-14.5)
[2024-11-09 04:49] LABS: Blood Urea Nitrogen 10 mg/dl (9-20); Calcium 9.0 mg/dl (8.4-10.2); Carbon Dioxide 24 mmol/L (22-30); Chloride 111 mmol/L (98-107); Estimated Creatinine Clearance 121 ml/min; Glucose 86 mg/dl (70-99); Potassium 3.6 mmol/L (3.5-5.1); Sodium 140 mmol/L (135-145); eGFR > 60.00
[2024-11-09 08:00] VITALS: BP 121/93
[2024-11-09] MEDS: MIRALAX 17 GRAMS PO (08:33)
[2024-11-09] MEDS: SINEMET 25-250 1 TABLET PO ×4 (08:34→21:19)
[2024-11-09] MEDS: CLARITIN 10 MG PO (08:34)
[2024-11-09] MEDS: SINGULAIR 10 MG PO (08:34)
[2024-11-09] MEDS: VITAMIN B-12 1000 MCG PO (08:34)
[2024-11-09] MEDS: ZYLOPRIM 300 MG PO (08:34)
[2024-11-09] MEDS: WELLBUTRIN SR (12 hour sustained release) 150 MG PO (08:34)
[2024-11-09] MEDS: VITAMIN D3 (cholecalciferol) 50 MCG PO (08:35)
[2024-11-09] MEDS: ZOLOFT 50 MG PO (08:35)
[2024-11-09] MEDS: NAMENDA 10 MG PO ×2 (08:35→21:19)
[2024-11-09] MEDS: FOLVITE 50.2 MG IV (08:40)
[2024-11-09 08:42] LABS: Glucose - Point of Care 81 mg/dl (70-99)
--- NOTE | 2024-11-09 09:33 | PTCARENOTE ---
Pt sleeping soundly, +1 anasarca 96 on RA, tfremors 4 pt restraints for poroection. now at bedside, pt responded to her voice
[2024-11-09 12:00] VITALS: BP 117/78
--- NOTE | 2024-11-09 12:01 | CM ---
Patient with Hx lewy body dementia, Parkinsons with Dx JOSE 2/2 hypoglycemia and UTI. Room air. Receiving IVF, IV Abx. Seen by wound care nurse. Per nurse; soft restraints, confused, restless, patient responding to 's voice.
CM Consult: Hospice
Spoke with Dr Ovalle, he planned on speaking with today re; hospice.
Met with patient, Lakeisha and brother in law;
familiar with hospice as her mother was recently at [facility] with [facility], and other family members have had hospice.
Reviewed hospice philosophy & benefits.
Lakeisha was tearful saying she just had for her mother last Sat 11/07, and a month ago her was well and at home. She also expressed concern for their 25 yr old son Cesar who is having a difficult time dealing with his father's
condition.
There are 3 daughters and 1 son who are all in the area.
Lakeisha would like to speak with hospice nurse today.
Offered backer up and Lakeisha says she is contacting a [place] supervisor rose grading to see her .
Lakeisha asking if she needs to think about discharge to home or SNF, as MD also mentioned patient possibly staying here - provided some information as requested re; private pay SNF with hospice, and suggested she meet with hospice nurse first and then
CM could discuss further as necessary.
Spoke with [facility]; she will meet with the family. Referral placed.
Plan follow up after seen by Hospice.
--- NOTE | 2024-11-09 12:18 | PTCARENOTE ---
Pt pulled out IV and took gown off, Pt for hospice eval
[2024-11-09 12:25] LABS: Glucose - Point of Care 88 mg/dl (70-99)
--- NOTE | 2024-11-09 12:32 | W.PN.HOSP.TC ---
Today's Communication/Plan
-
Goals of care discussions
Assessment / Plan
Assessment / Plan
Physical exam:
General: Acute on chronically ill
HEENT: Normocephalic, Atraumatic and Moist Mucous Membranes
Respiratory: Clear to Auscultation; Negative Wheezes, Rales or Rhonchi
Cardiac: Regular Rhythm and S1/S2
GI: Soft, Nontender and Nondistended
Musculoskeletal: No Clubbing, No Cyanosis and No Edema
Neuro: Awake, Alert and Disoriented, no gross neurological deficit
Psych: Calm
A/P:
69yo M with PMHx of lewy body dementia, parkinsons, DM, HTN, HLD brought with lethargy, found hypoglycemia and possible UTI
A/P:
#Acute metabolic encephalopathy 2/2 combination of hypoglycemia and UTI on parkinsons and Lewy body dementia With episode of agitation
hold off oral DM meds
accuchecks, D5W
Ceftriaxone, Ucx growing Klebsiella
US renal Limited visualization of the left kidney. Right kidney measures 10.9 x 6.0 x 5.0 cm. Within the limitations, no overt hydronephrosis, contour deforming solid renal mass or echogenic shadowing foci to suggest renal calculi.
Bcx NTD
Head CT - Moderate cerebral atrophy along with chronic small vessel ischemia in the cerebral white matter. Findings have progressed compared with prior CT
cont home meds
Wean off restraints as possible
Cont w/modified diet
Repeat CT head for performed on 11/05/2024 for location and consistent pupil size. CAT scan negative for acute stroke. No acute intracranial abnormality noted.
Remains on restraints
Discussed with family today at length. He is hospice candidate appropriate and we went over the details and family is in agreement but they will meet with hospice staff and I will also discussed with rest of the family. Will add benzodiazepines
intravenously as needed and likely transition to inpatient hospice over the next 24 hours. Will stop IV fluids and antibiotics within the next 24 hours as well.
#Anemia
#folate deficiency
Folate IVF, follow CBC
#Mild CPK elevation
suspect 2/2 agitation
cont IVF
#Chronic dysphagia
aspiration precautions
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
Dysphagia diet
#Hypokalemia
#hypomagnesemia
replete, follow
#DM type 2 with unspecified complications with hypoglycemia
stop oral antiglycemics
Accuchecks
#Tachycardia on monitor likely artifact due to tremors
TROP is negative.
Check electrolytes.
HR stabilized
EKG noted with severe tachycardia which seems artifact due to tremors. No chest pain. troponin negative.
#gout
#ASCVD
#Anxiety
#COPD/Asthma not in exacerbation
#HLD
DVT ppx Lovenox
DNR/DNI
Dr Burnett pdated spouse at bedside in details on 11/06/24. Explained this possible multiple medical problem and goal of trying to wean off oxygenation, IV fluids and hoping patient with increased appetite. Discussed possible outcomes that he could
improve or he could continue to deteriorate. If that happens then would consider going towards hospice. Unfortunately she just lost her mother. Reviewing is Saturday and is Saturday. Therefore at this time we will see where clinical course
goes in the next 48 hours prior to making any decisions. Spouse was emotional/crying but appreciative.
Will give family some time due to above social circumstances and reengage in goals of care discussions within the next 24 to 48 hours. I was able to discuss with and rest of family today.
Time spent 52 minutes. More than 50% of time spent in counseling coordination in terms of prognosis and hospice care and goals of care discussion.
Anticipated Discharge: 24 - 48 hours
Subjective/Interval History
-
Date of Service: November 09, 2024
Patient remains in restraints. Remains encephalopathic.
Objective Data
-
Labs:
Laboratory Results
11/09/24
04:18
WBC 6.4
Hgb 12.7 L
Hct 38.6 L
Plt Count 189
Sodium 140
Potassium 3.6
Chloride 111 H
Carbon Dioxide 24
BUN 10
Creatinine 0.7
Glucose 86
Calcium 9.0
Vital Signs:
Vital Signs
Temp Pulse Resp BP Pulse Ox
97.4 F 69 17 117/78 96
11/09/24 11:58 11/09/24 12:04 11/09/24 12:04 11/09/24 12:00 11/09/24 08:00
I&O
11/08/24 11/09/24 11/10/24
06:59 06:59 06:59
Intake Total 720 / 720 840 / 840
Balance 720 / 720 840 / 840
--- NOTE | 2024-11-09 12:49 | HOSPNOTE ---
Spoke with spouse who is very tearful and I explained hospice and the philosophy. The patient and spouse have a 25yo son who is really having a difficult time. The plan is for the patient to be transferred to [facility] continue fluids and added a PRN
ativan order and then tomorrow the spouse will sign consents and patient will remain inpatient hospice. The spouse will speak with the son dara. Attending and CM updated.
[2024-11-09] MEDS: STERILE WATER FOR INJECTION 10 ML IV (13:04)
[2024-11-09] MEDS: ROCEPHIN 1000 MG IV (13:04)
[2024-11-09 14:45] VITALS: BP 105/64
--- NOTE | 2024-11-09 14:57 | PTCARENOTE ---
Received into room 213 from [facility]. Patient oriented to self. Dozes back to sleep between questions. at bedside. Patient currently calm. Restraints taken off. IV to left arm wrapped w/ kerlix for protection. Bed alarm in place and
monitoring. wanting to shave patient, provided w/ electric razor to do so. tearful, emotional support provided.
[2024-11-09 17:02] LABS: Glucose - Point of Care 97 mg/dl (70-99)
[2024-11-09] MEDS: LOW STRENGTH ASPIRIN 81 MG PO (17:14)
[2024-11-09] MEDS: LOVENOX 40 MG SC (17:14)
[2024-11-09] MEDS: CRESTOR 5 MG PO (17:14)
[2024-11-09] MEDS: ATIVAN 1 MG PO ×2 (18:40→23:35)
[2024-11-09 19:21] VITALS: BP 145/102
[2024-11-09] MEDS: WELLBUTRIN SR (12 hour sustained release) PO (21:18)
[2024-11-09] MEDS: ARICEPT 10 MG PO (21:19)
[2024-11-09 21:55] LABS: Glucose - Point of Care 92 mg/dl (70-99)
--- NOTE | 2024-11-09 22:24 | PTCARENOTE ---
Pt restless, removing telemetry/gown/linens. BLENDING TANK TENDER covering house contacted to request to d/c telemetry (pt to transition inpt hospice). Electronic orders received. Oral meds given crushed. Incontinence care and repositioned for comfort. Bed
alarm active for safety, call varner w/in reach.
[2024-11-10 07:35] VITALS: BP 136/81
[2024-11-10 07:39] LABS: Glucose - Point of Care 75 mg/dl (70-99)
--- NOTE | 2024-11-10 08:39 | W.PN.HOSP.TC ---
Today's Communication/Plan
-
Goals of care discussion
Assessment / Plan
Assessment / Plan
Physical exam:
General: Acute on chronically ill
HEENT: Normocephalic, Atraumatic and Moist Mucous Membranes
Respiratory: Clear to Auscultation; Negative Wheezes, Rales or Rhonchi
Cardiac: Regular Rhythm and S1/S2
GI: Soft, Nontender and Nondistended
Musculoskeletal: No Clubbing, No Cyanosis and No Edema
Neuro: Awake, Alert and Disoriented, no gross neurological deficit
Psych: Calm
A/P:
69yo M with PMHx of lewy body dementia, parkinsons, DM, HTN, HLD brought with lethargy, found hypoglycemia and possible UTI
A/P:
#Acute metabolic encephalopathy 2/2 combination of hypoglycemia and UTI on parkinsons and Lewy body dementia With episode of agitation
hold off oral DM meds
accuchecks, D5W
Ceftriaxone, Ucx growing Klebsiella
US renal Limited visualization of the left kidney. Right kidney measures 10.9 x 6.0 x 5.0 cm. Within the limitations, no overt hydronephrosis, contour deforming solid renal mass or echogenic shadowing foci to suggest renal calculi.
Bcx NTD
Head CT - Moderate cerebral atrophy along with chronic small vessel ischemia in the cerebral white matter. Findings have progressed compared with prior CT
cont home meds
Wean off restraints as possible
Cont w/modified diet
Repeat CT head for performed on 11/05/2024 for location and consistent pupil size. CAT scan negative for acute stroke. No acute intracranial abnormality noted.
Remains on restraints
Discussed with family yesterday at length. He is hospice candidate appropriate and we went over the details and family is in agreement but they will meet with hospice staff and I will also discussed with rest of the family. Will add
benzodiazepines intravenously as needed and likely transition to inpatient hospice over the next 24 hours. Will stop IV fluids and antibiotics within the next 24 hours as well.
Will likely transition to hospice care today on 11/10 but awaiting family meeting with hospice today.
#Anemia
#folate deficiency
Folate IVF, follow CBC
#Mild CPK elevation
suspect 2/2 agitation
cont IVF
#Chronic dysphagia
aspiration precautions
MANAGER INTEGRITY
Dysphagia diet
#Hypokalemia
#hypomagnesemia
replete, follow
#DM type 2 with unspecified complications with hypoglycemia
stop oral antiglycemics
Accuchecks
#Tachycardia on monitor likely artifact due to tremors
TROP is negative.
Check electrolytes.
HR stabilized
EKG noted with severe tachycardia which seems artifact due to tremors. No chest pain. troponin negative.
#gout
#ASCVD
#Anxiety
#COPD/Asthma not in exacerbation
#HLD
DVT ppx Lovenox
DNR/DNI
Dr Burnett pdated spouse at bedside in details on 11/06/24. Explained this possible multiple medical problem and goal of trying to wean off oxygenation, IV fluids and hoping patient with increased appetite. Discussed possible outcomes that he could
improve or he could continue to deteriorate. If that happens then would consider going towards hospice. Unfortunately she just lost her mother. Reviewing is Saturday and is Saturday. Therefore at this time we will see where clinical course
goes in the next 48 hours prior to making any decisions. Spouse was emotional/crying but appreciative.
I was able to discuss with and rest of family yesterday.
Anticipated Discharge: Today
Subjective/Interval History
-
Date of Service: November 10, 2024
No new events. Afebrile
Objective Data
-
Vital Signs:
Vital Signs
Temp Pulse Resp BP Pulse Ox
98.3 F 67 18 136/81 100
11/10/24 07:35 11/10/24 07:35 11/10/24 07:35 11/10/24 07:35 11/10/24 07:35
I&O
11/09/24 11/10/24 11/11/24
06:59 06:59 06:59
Intake Total 840 / 840 240 / 240
Balance 840 / 840 240 / 240
[2024-11-10] MEDS: FOLVITE 50.2 MG IV (08:53)
[2024-11-10] MEDS: MIRALAX 17 GRAMS PO (08:57)
[2024-11-10] MEDS: NAMENDA 10 MG PO (08:57)
[2024-11-10] MEDS: SINGULAIR 10 MG PO (08:57)
[2024-11-10] MEDS: VITAMIN D3 (cholecalciferol) 50 MCG PO (08:58)
[2024-11-10] MEDS: ZOLOFT 50 MG PO (08:58)
[2024-11-10] MEDS: VITAMIN B-12 1000 MCG PO (08:58)
[2024-11-10] MEDS: ZYLOPRIM 300 MG PO (08:58)
[2024-11-10] MEDS: SINEMET 25-250 1 TABLET PO (08:58)
[2024-11-10] MEDS: CLARITIN 10 MG PO (08:58)
[2024-11-10] MEDS: WELLBUTRIN SR (12 hour sustained release) PO (08:59)
[2024-11-10] MEDS: D5/0.45%NACL 1000 IV (09:33)
--- NOTE | 2024-11-10 10:30 | HOSPNOTE ---
Patient will be admitted inpatient hospice today. Admissions was called and a hospice chart will be started. Spouse will be here at 11:45 to sign consents. Attending and CM aware of plan.
--- NOTE | 2024-11-10 10:35 | CM ---
Reviewed the chart notes. Per LUIS Saavedra with Hospice, patient will transition to inpatient hospice.
--- NOTE | 2024-11-10 11:02 | W.DCSUMMARY ---
Discharge Summary
Discharge Data
Date of Admission: 11/01/24
Date of Discharge: 11/10/24
-
Pending Results: No
Hospital Course
Patient 69 years old male with history of Lewy body dementia, Parkinson's, hypertension, diabetes mellitus, hyperlipidemia presented to the hospital mental status changes. Patient was treated with antibiotics for urinary tract infection that grew
Klebsiella pneumonia in the urine cultures. He had some behavior alterations and he was given antipsychotics and also had to be placed on physical restraints. He had CT scans of the head that showed no acute abnormality. He also had dysphagia and
speech therapy was following him. Despite best efforts patient continued to deteriorate clinically and given his overall poor prognosis we had discussions with family about hospice care and family decided in favor of hospice. Patient will be
transition to inpatient hospice for comfort care measures.
Discharge Plan
-
Activity Restrictions/Additional Instructions:
Wound Care Instructions
L elbow, sacrum and R buttock: clean with soap and water, silicone foam change q 2-3 days and prn drainage.
Referrals:
Cece Jalloh DO [Family Provider, Family Practice]
Prescriptions:
No Action
bupropion HCl [Wellbutrin SR] 150 MG tablet sustained-release 12 hr
150 mg PO BID
glimepiride 2 MG tablet
2 mg PO DAILY
montelukast 10 MG tablet
10 mg PO DAILY
allopurinol 300 MG tablet
300 mg PO DAILY
carbidopa-levodopa 25-250 mg tablet
1 tab PO QID
lisinopril 20 mg tablet
20 mg PO HS
metformin 500 mg tablet extended release 24 hr
500 mg PO QPM
rosuvastatin 5 mg tablet
5 mg PO QPM
donepezil 23 mg tablet
23 mg PO HS
memantine 28 mg capsule,sprinkle,ER 24hr
28 mg PO HS
aspirin 81 MG tablet,chewable
81 mg PO QPM
sertraline [Zoloft] 50 mg Tablet
50 mg PO DAILY
diclofenac sodium [Voltaren Arthritis Pain] 1 % Gel
0 g TOPICAL QIDPRN PRN (Reason: left knee)
fexofenadine [Latha] 180 mg Tablet
180 mg PO DAILY Qty: 0
polyethylene glycol 3350 [Miralax] 17 gram Powder In Packet
17 g PO DAILYPRN PRN (Reason: constipation)
cyanocobalamin (vitamin B-12) 1,000 mcg Tablet
1,000 mcg PO DAILY
cholecalciferol (vitamin D3) [Vitamin D3] 50 mcg (2,000 unit) Capsule
50 mcg PO DAILY
Discharge Date and Time
Print Language: TAJIK
[2024-11-10 12:22] LABS: Glucose - Point of Care 83 mg/dl (70-99)
--- NOTE | 2024-11-10 13:30 | HOSPNOTE ---
Consents are signed and patient will be admitted inpatient hospice. Admissions was called, Attending aware to place orders in new chart.
== END 2024-11-10 14:28 | disposition hospice, inpatient (51) | DRG 689 ==
LOC: 2 NORTH 13:27
PROVIDERS: Hospitalist; ADMITTING PHYSICIAN Hospitalist; ATTENDING PHYSICIAN Hospitalist; EMERGENCY PHYSICIAN Emergency Medicine; FAMILY PHYSICIAN Family Medicine
DX: N39.0 Urinary tract infection, site not specified (principal); G92.8 Other toxic encephalopathy; L89.323 Pressure ulcer of left buttock, stage 3; G93.41 Metabolic encephalopathy; F02.84 Dementia in other diseases classified elsewhere, unspecified severity, with anxiety; E11.649 Type 2 diabetes mellitus with hypoglycemia without coma; M10.9 Gout, unspecified; E87.6 Hypokalemia; E83.42 Hypomagnesemia; E78.00 Pure hypercholesterolemia, unspecified; L89.312 Pressure ulcer of right buttock, stage 2; L89.152 Pressure ulcer of sacral region, stage 2; Z66 Do not resuscitate; Z51.5 Encounter for palliative care; I11.0 Hypertensive heart disease with heart failure; Z78.1 Physical restraint status
CPT/HCPCS: 51701; 70450; 71045; 76770; 80048; 80053; 81003; 81015; 82533; 82550; 82607; 82746; 82962; 83036; 83735; 83880; 84100; 84443; 84484; 85025; 85027; 87077; 87086; 87186; 92526; 92610; 93005; 96365; 96366; 96375; 99291

== ENCOUNTER 2024-11-10 14:30 | Inpatient (IN) | payer OTHER, SELFPAY ==
[2024-11-10 07:40] VITALS: BP 136/81
--- NOTE | 2024-11-10 14:35 | HPS.HSE ---
Family Physician
-
Family Physician: NOT KNOW UNKNOWN - PT DOES
Chief Complaint
-
Agitation
History of Present Illness
Patient 69 years old male with history of Lewy body dementia, Parkinson's, hypertension, diabetes mellitus, hyperlipidemia presented to the hospital mental status changes. Patient was treated with antibiotics for urinary tract infection that grew
Klebsiella pneumonia in the urine cultures. He had some behavior alterations and he was given antipsychotics and also had to be placed on physical restraints. He had CT scans of the head that showed no acute abnormality. He also had dysphagia and
speech therapy was following him. Despite best efforts patient continued to deteriorate clinically and given his overall poor prognosis we had discussions with family about hospice care and family decided in favor of hospice. Patient will be
transition to inpatient hospice for comfort care measures.
Medical History
Past Medical History
Past Medical History: Reports Dementia, HTN and Hypercholesterolemia
Past Surgical History: Reports Bowel Resection
Social History
Unable to obtain full social history at this time due to: Dementia
Family History
Family History: Not pertinent
Allergies / Home Medications
Allergies reflects when Allergies were last updated in [facility].
Home Medications with original date entered in [facility]
Allergy/Medication List:
Allergies
Allergy/AdvReac Type Severity Reaction Status Date / Time
ciprofloxacin (From Cipro) Allergy tendonitis Verified 11/01/24 11:49
ciprofloxacin HCl (From Allergy tendonitis Verified 11/01/24 11:49
Cipro)
Review of Systems
-
Unable to obtain full review of systems at this time due to: Dementia
Physical Exam
Vital Signs
Physical exam:
General: Acutely ill
HEENT: Normocephalic, Atraumatic and Moist Mucous Membranes
Respiratory: Clear to Auscultation; Negative Wheezes, Rales or Rhonchi
Cardiac: Regular Rhythm and S1/S2
GI: Soft, Nontender and Nondistended
Musculoskeletal: No Clubbing, No Cyanosis and No Edema
Neuro: Lethargic, disoriented, no gross neurological deficit but increased tone.
Psych: Agitation on and off
Physical Exam
General: Other
Impression/Plan
-
IMPRESSION:
69yo M with PMHx of Lewy body dementia, Parkinson, DM, HTN, HLD brought with lethargy, found hypoglycemia and UTI and metabolic encephalopathy. Patient transitioned to hospice care on 11/10.
PLAN:
Comfort care:
Morphine as needed
Robinul and Zofran and Levsin as needed
Bowel regimen as needed
Acute metabolic cephalopathy:
Continue comfort care measures
Rest of medical problems:
Lewy body dementia
Parkinson's
Hypertension
Diabetes mellitus
Hyperlipidemia
Recent UTI
Anemia
Dysphagia
Gout
COPD/asthma
Anxiety
ASCVD
Elevated CPK
Tachycardia
DVT prophylaxis due to comfort care measures
CODE STATUS DNR/DNI/comfort measures
--- NOTE | 2024-11-10 14:36 | CM ---
Reviewed the chart notes. Patient has transitioned onto [facility].
--- NOTE | 2024-11-10 14:48 | HOSPNOTE ---
Patient has been admitted to inpatient level of hospice with lewy body dementia. Patient is inpatient hospice for pain management and anxiety/agitation management with the use of IV Morphine and IV Ativan. Hospice will visit daily.
--- NOTE | 2024-11-10 14:50 | PTCARENOTE ---
Pt transitioned to inpatient hospice.
[2024-11-10] MEDS: NSS (PRESERVATIVE FREE) 0.5 ML IV (15:05)
[2024-11-10] MEDS: ATIVAN 1 MG IV (15:05)
[2024-11-10] MEDS: MORPHINE SULFATE 2 MG IV ×2 (15:07→21:30)
[2024-11-10] MEDS: ATIVAN 1 MG PO ×2 (18:09→22:25)
[2024-11-11] MEDS: MORPHINE SULFATE 2 MG IV ×3 (00:06→21:16)
[2024-11-11 08:44] VITALS: BP 132/86
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
--- NOTE | 2024-11-11 10:19 | W.PN.HOSP.TC ---
Today's Communication/Plan
-
Comfort care measures
Assessment / Plan
Assessment / Plan
Physical exam:
Respiratory: Clear to Auscultation; Negative Wheezes, Rales or Rhonchi
Cardiac: Regular Rhythm and S1/S2
GI: Soft, Nontender and Nondistended
A/P:
69yo M with PMHx of Lewy body dementia, Parkinson, DM, HTN, HLD brought with lethargy, found hypoglycemia and UTI and metabolic encephalopathy. Patient transitioned to hospice care on 11/10.
PLAN:
Comfort care:
Morphine as needed
Robinul and Zofran and Levsin as needed
Bowel regimen scheduled
Acute metabolic cephalopathy:
Continue comfort care measures
Rest of medical problems:
Lewy body dementia
Parkinson's
Hypertension
Diabetes mellitus
Hyperlipidemia
Recent UTI
Anemia
Dysphagia
Gout
COPD/asthma
Anxiety
ASCVD
Elevated CPK
Tachycardia
DVT prophylaxis due to comfort care measures
CODE STATUS DNR/DNI/comfort measures
Anticipated Discharge: > 48 hours
Subjective/Interval History
-
Date of Service: November 11, 2024
No new complaints
Objective Data
-
Vital Signs:
Vital Signs
Temp Pulse Resp BP Pulse Ox
97.6 F 74 18 132/86 99
11/11/24 08:44 11/11/24 08:44 11/11/24 08:44 11/11/24 08:44 11/11/24 08:44
I&O
11/10/24 11/11/24 11/12/24
06:59 06:59 06:59
Intake Total 270 / 270
Balance 270 / 270
--- NOTE | 2024-11-11 10:39 | CM ---
Reviewed the chart notes. CM continues to be available to patient/family.
Plan: Continue with [facility]
--- NOTE | 2024-11-11 14:21 | HOSPNOTE ---
SN received patient sitting up in bed, patient present during visit. Patient responsive to SN verbalization and gentle touch. Patient has no physical signs of pain noted, FLACC score 0. Patient has no physical signs of dyspnea noted, pox 96% on
room air. Patient lungs CTA, diminished breath sounds noted. Patient abdomen soft, non tender active bowel sounds noted. Patient stated patient did not eat breakfast but ate about 75% of lunch. Patient dozing off during visit. Emotional support
provided. SN coordinated with facility RN, no concerns at this time. Reinforced to call office with any questions or concerns. Expresses understanding. Patient has required PRN morphine and PRN lorazepam x 1 in last 24hrs. Patient remains inpatient
for management of anxiety and pain that is unable to be managed in an outside setting. Discharge planning continues
--- NOTE | 2024-11-11 14:27 | HOSPNOTE ---
Maxim was awake, resting comfortably. Spouse Lakeisha was present, along with package checker Li. Lakeisha shared background about Maxim and their family. 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 The family is
spiritually strong and united. The Pastoral Care team has requested a category consultant visit for him, and provided a prayer blanket. Msgr. Giron of [facility] called this clerk manager to say he will come in 30 minutes. Advertising Columnist provided emotional and spiritual
support through presence, dialogue and prayer. Will continue support through visits 2x week.
[2024-11-11] MEDS: ATIVAN 1 MG PO ×2 (17:24→21:16)
[2024-11-11 19:30] VITALS: BP 124/83
[2024-11-12] MEDS: MORPHINE SULFATE 2 MG IV ×6 (03:09→17:46)
[2024-11-12 07:45] VITALS: BP 120/77
[2024-11-12] MEDS: ATIVAN 1 MG PO ×5 (07:57→22:00)
--- NOTE | 2024-11-12 11:15 | W.PN.HOSP.TC ---
Today's Communication/Plan
-
Comfort care
Assessment / Plan
Assessment / Plan
Physical exam:
Respiratory: Clear to Auscultation; Negative Wheezes, Rales or Rhonchi
Cardiac: Regular Rhythm and S1/S2
GI: Soft, Nontender and Nondistended
A/P:
69yo M with PMHx of Lewy body dementia, Parkinson, DM, HTN, HLD brought with lethargy, found hypoglycemia and UTI and metabolic encephalopathy. Patient transitioned to hospice care on 11/10.
PLAN:
Comfort care:
Morphine as needed
Robinul and Zofran and Levsin as needed
Bowel regimen scheduled
Allow dog visitation if permitted by policy
Acute metabolic cephalopathy:
Continue comfort care measures
Rest of medical problems:
Lewy body dementia
Parkinson's
Hypertension
Diabetes mellitus
Hyperlipidemia
Recent UTI
Anemia
Dysphagia
Gout
COPD/asthma
Anxiety
ASCVD
Elevated CPK
Tachycardia
DVT prophylaxis due to comfort care measures
CODE STATUS DNR/DNI/comfort measures
Anticipated Discharge: > 48 hours
Subjective/Interval History
-
Date of Service: November 12, 2024
Appears comfortable
Objective Data
-
Vital Signs:
Vital Signs
Temp Pulse Resp BP Pulse Ox
98.6 F 80 18 120/77 98
11/12/24 07:45 11/12/24 07:45 11/12/24 07:45 11/12/24 07:45 11/12/24 07:45
I&O
11/11/24 11/12/24 11/13/24
06:59 06:59 06:59
Intake Total 270 / 270
Balance 270 / 270
--- NOTE | 2024-11-12 11:34 | HOSPNOTE ---
Spoke with nurse and was told patient was so agitated this am, pulling off gown and moaning. Patient when not given medications becomes extremely agitated and appears in discomfort. The patient meets inpatient criteria has been medicated x2 with
morphine and dose of ativan with good relief. Encouraged to continue with medications so the patient remains calm and not agitated. No family was present during my visit but the nurse will have them call me if needed. The patient continues to be
inpatient appropriate for IV medications to manage anxiety and pain. Patient will be seen daily by hospice.
--- NOTE | 2024-11-12 11:53 | PTCARENOTE ---
requesting if patient's dog can visit. Discussed w/ community cultural development officer, order from doctor and vaccination records for dog required. Vaccine records obtained from , and are in the 'miscellaneous' tab in patient's paper chart. Dr. Ovalle verbally
okayed, aware order is needed.
--- NOTE | 2024-11-12 15:13 | CM ---
Inpatient hospice. CM will remain available to hospice team and family as needed.
[2024-11-12 19:51] VITALS: BP 120/77
[2024-11-13] MEDS: MORPHINE SULFATE 2 MG IV ×2 (00:34→10:29)
[2024-11-13] MEDS: ATIVAN 1 MG PO ×4 (00:35→23:52)
[2024-11-13 07:45] VITALS: BP 119/75
--- NOTE | 2024-11-13 10:47 | HOSPNOTE ---
Patient seen this morning for assessment, minimally responsive, some moaning noted during visit. Coordinated care with LUIS Hallman, PRN dose of morphine given with good management of symptoms of discomfort. Received several doses of morphine and ativan
overnight. Feet are mottled, nail beds cyanotic, patient transitioning to actively dying. Currently well managed with IV medication, patient appropriate for GIP level of care. Updated family, encouraged to call with any questions.
--- NOTE | 2024-11-13 10:51 | W.PN.HOSP.TC ---
Today's Communication/Plan
-
Comfort care
Assessment / Plan
Assessment / Plan
Physical exam:
Respiratory: Clear to Auscultation; Negative Wheezes, Rales or Rhonchi
Cardiac: Regular Rhythm and S1/S2
GI: Soft, Nontender and Nondistended
A/P:
69yo M with PMHx of Lewy body dementia, Parkinson, DM, HTN, HLD brought with lethargy, found hypoglycemia and UTI and metabolic encephalopathy. Patient transitioned to hospice care on 11/10.
PLAN:
Comfort care:
Morphine as needed
Robinul and Zofran and Levsin as needed
Bowel regimen scheduled
Acute metabolic cephalopathy:
Continue comfort care measures
Rest of medical problems:
Lewy body dementia
Parkinson's
Hypertension
Diabetes mellitus
Hyperlipidemia
Recent UTI
Anemia
Dysphagia
Gout
COPD/asthma
Anxiety
ASCVD
Elevated CPK
Tachycardia
DVT prophylaxis due to comfort care measures
CODE STATUS DNR/DNI/comfort measures
Anticipated Discharge: > 48 hours
Subjective/Interval History
-
Date of Service: November 13, 2024
Patient appears to be comfortable.
Objective Data
-
Vital Signs:
Vital Signs
Temp Pulse Resp BP Pulse Ox
96.7 F L 77 16 119/5 97
11/13/24 07:45 11/13/24 07:45 11/13/24 07:45 11/13/24 07:45 11/13/24 07:45
I&O
11/12/24 11/13/24 11/14/24
06:59 06:59 06:59
Intake Total 90 / 90
Balance 90 / 90
[2024-11-14] MEDS: ATIVAN 1 MG PO ×3 (07:46→18:27)
[2024-11-14 07:55] VITALS: BP 136/90
--- NOTE | 2024-11-14 08:02 | W.PN.HOSP.TC ---
Today's Communication/Plan
-
Comfort care
Assessment / Plan
Assessment / Plan
Physical exam:
Respiratory: Clear to Auscultation; Negative Wheezes, Rales or Rhonchi
Cardiac: Regular Rhythm and S1/S2
GI: Soft, Nontender and Nondistended
A/P:
69yo M with PMHx of Lewy body dementia, Parkinson, DM, HTN, HLD brought with lethargy, found hypoglycemia and UTI and metabolic encephalopathy. Patient transitioned to hospice care on 11/10.
PLAN:
Comfort care:
Morphine as needed
Robinul and Zofran and Levsin as needed
Bowel regimen scheduled
Acute metabolic cephalopathy:
Continue comfort care measures
Rest of medical problems:
Lewy body dementia
Parkinson's
Hypertension
Diabetes mellitus
Hyperlipidemia
Recent UTI
Anemia
Dysphagia
Gout
COPD/asthma
Anxiety
ASCVD
Elevated CPK
Tachycardia
DVT prophylaxis due to comfort care measures
CODE STATUS DNR/DNI/comfort measures
Anticipated Discharge: > 48 hours
Subjective/Interval History
-
Date of Service: November 14, 2024
No new complaint
Objective Data
-
Vital Signs:
Vital Signs
Temp Pulse Resp BP Pulse Ox
96.7 F L 77 16 119/75 97
11/13/24 07:45 11/13/24 07:45 11/13/24 07:45 11/13/24 07:45 11/13/24 16:55
I&O
11/13/24 11/14/24 11/15/24
06:59 06:59 06:59
Intake Total 90 / 90 600 / 600
Balance 90 / 90 600 / 600
--- NOTE | 2024-11-14 10:11 | CHAP ---
Maxim was sleeping comfortably, non-responsive. No family was present. Emotional and spiritual support provided through presence and prayer. Will continue support through visits 2x week.
--- NOTE | 2024-11-14 10:49 | HOSPNOTE ---
SN recieved patient in bed sleeping with mouth open, patient non responsive to SN verbalization or gentle touch at beginning of visit. Patient became a little restless through out visit, patient started with tremors and pulling at hospital gown. Did
not appear to be anxiety related. SN able to calm patient by holding patient hand and talking to patient. Patient not present during visit. Emotional support provided to patient. SN coordinated with facility RN, no concerns at this time,
stated administered PRN dose of lorazaepam this am with good effect. Facility RN stated patient ate small amounts of lunch and dinner for yesterday but nothing this am thus far. Reinforced to call office with any questions or concerns,
expresses understanding. Update to after visit. Patient remains inpatient appropriate for management of pain and anxiety that is unable to be obtained in an outside setting. Discharge planning continues.
[2024-11-14 19:11] VITALS: BP 138/98
[2024-11-15] MEDS: ATIVAN 1 MG PO (07:53)
[2024-11-15] MEDS: MORPHINE SULFATE 2 MG IV (07:53)
[2024-11-15 07:55] VITALS: BP 136/94
[2024-11-15] MEDS: ROBINUL 0.2 MG IV (08:11)
--- NOTE | 2024-11-15 09:09 | W.PN.HOSP.TC ---
Today's Communication/Plan
-
Comfort care measures
Assessment / Plan
Assessment / Plan
Physical exam:
Respiratory: Clear to Auscultation; Negative Wheezes, Rales or Rhonchi
Cardiac: Regular Rhythm and S1/S2
GI: Soft, Nontender and Nondistended
A/P:
69yo M with PMHx of Lewy body dementia, Parkinson, DM, HTN, HLD brought with lethargy, found hypoglycemia and UTI and metabolic encephalopathy. Patient transitioned to hospice care on 11/10 after discussion of goals of care with family.
PLAN:
Comfort care:
Morphine as needed
Robinul and Zofran and Levsin as needed
Bowel regimen
Acute metabolic cephalopathy:
Continue comfort care measures
Rest of medical problems:
Lewy body dementia
Parkinson's
Hypertension
Diabetes mellitus
Hyperlipidemia
Recent UTI
Anemia
Dysphagia
Gout
COPD/asthma
Anxiety
ASCVD
Elevated CPK
Tachycardia
DVT prophylaxis due to comfort care measures
CODE STATUS DNR/DNI/comfort measures
Anticipated Discharge: > 48 hours
Subjective/Interval History
-
Date of Service: November 15, 2024
Patient comfortable. No new complaints.
Objective Data
-
Vital Signs:
Vital Signs
Temp Pulse Resp BP Pulse Ox
97.0 F 87 16 136/94 96
11/15/24 07:55 11/15/24 07:55 11/15/24 07:55 11/15/24 07:55 11/15/24 07:55
I&O
11/14/24 11/15/24 11/16/24
06:59 06:59 06:59
Intake Total 600 / 600 120 / 120
Balance 600 / 600 120 / 120
--- NOTE | 2024-11-15 11:20 | HOSPNOTE ---
Actively dying, continues to require GIP LOC for IV medication to adequately manage pain, anxiety and respiratory comfort. Currently well managed, received IV morphine and ativan prior to visit with good relief of symptoms of anxiety and pain.
Coordinated care with hospital staff, no new needs at this time. Will update family with above.
[2024-11-15 19:33] VITALS: BP 152/98
[2024-11-15 23:54] VITALS: BP 115/79
[2024-11-16] MEDS: ATIVAN 1 MG PO ×5 (02:50→23:28)
--- NOTE | 2024-11-16 08:11 | W.PN.HOSP.TC ---
Today's Communication/Plan
-
hospice care
Assessment / Plan
Assessment / Plan
69yo M with PMHx of lewy body dementia, parkinsons, DM, HTN, HLD brought with lethargy, found hypoglycemia and possible UTI, Ucx grew Klebsiella pneumoniae, due multiple comorbidities family decided to established inpatient hospice
A/P:
#Acute metabolic encephalopathy 2/2 combination of hypoglycemia and UTI on parkinsons and Lewy body dementia
#Anemia
#folate deficiency
#Mild CPK elevation
#Chronic dysphagia
#Hypokalemia
#hypomagnesemia
#DM type 2 with unspecified complications with hypoglycemia
#gout
#ASCVD
#Anxiety
#COPD/Asthma not in exacerbation
#HLD
admitted to inpatient hospice, continue hospice care
I have spent at least 38min reviewing chart, test results and providing direct patient care
Anticipated Discharge: > 48 hours
Subjective/Interval History
-
Date of Service: November 16, 2024
Objective Data
-
Vital Signs:
Vital Signs
Temp Pulse Resp BP Pulse Ox
97.8 F 107 16 115/79 100
11/15/24 23:54 11/15/24 23:54 11/15/24 23:54 11/15/24 23:54 11/15/24 23:54
I&O
11/15/24 11/16/24 11/17/24
06:59 06:59 06:59
Intake Total 120 / 120 360 / 360
Balance 120 / 120 360 / 360
Review of Systems
-
Unable to obtain full review of systems at this time due to: Dementia
Physical Exam
-
General: No Apparent Distress
HEENT: Normocephalic
Cardiac: Regular Rhythm
GI: Soft, Nontender and Nondistended
Neuro: Awake and Alert
Psych: Calm and Apparent Dementia
[2024-11-16 11:06] VITALS: BP 124/89
--- NOTE | 2024-11-16 12:04 | HOSPNOTE ---
Addendum entered by Dorinda Del Cid RN 11/16/24 13:23:
Patient with increased flacc score to 5 and increased restlessness. Patient given Morphine and Ativan PRN at 1 pm.
Addendum entered by Dorinda Del Cid RN 11/16/24 12:14:
Attempted to call spouse to provide update. Voicemail left with my call back number.
Original Note:
Spoke to nurse Viji who is caring for the patient. She gave patient a dose of ativan this morning due to restlessness. This has shown a positive effect. Flacc score of 2, no need for morphine at this time. Patient denied feeling uncomfortable at
time of visit. Patient with generally eyes closed, head back and mouth open. Speech is garbled. Extremities are cool to the touch. Repositioned and recovered patient. Patient went back to sleep. not present at bedside. Will call and provide
update. Patient remains GIP level of care for the management of anxiety and pain that could not be managed in the outpatient setting. Discharge planning continues.
[2024-11-16] MEDS: MORPHINE SULFATE 2 MG IV ×2 (13:05→23:28)
[2024-11-16 23:13] VITALS: BP 139/90
[2024-11-17] MEDS: ATIVAN 1 MG PO ×2 (02:19→16:26)
[2024-11-17 07:00] VITALS: BP 136/90
--- NOTE | 2024-11-17 09:36 | W.PN.HOSP.TC ---
Today's Communication/Plan
-
comfort care
Assessment / Plan
Assessment / Plan
69yo M with PMHx of lewy body dementia, parkinsons, DM, HTN, HLD brought with lethargy, found hypoglycemia and possible UTI, Ucx grew Klebsiella pneumoniae, due multiple comorbidities family decided to established inpatient hospice
A/P:
#Acute metabolic encephalopathy 2/2 combination of hypoglycemia and UTI on parkinsons and Lewy body dementia
#Anemia
#folate deficiency
#Mild CPK elevation
#Chronic dysphagia
#Hypokalemia
#hypomagnesemia
#DM type 2 with unspecified complications with hypoglycemia
#gout
#ASCVD
#Anxiety
#COPD/Asthma not in exacerbation
#HLD
admitted to inpatient hospice, continue hospice care with morphine/ativan PRN
DNR
Anticipated Discharge: 24 - 48 hours
Subjective/Interval History
-
Date of Service: November 17, 2024
resting comfortably
Objective Data
-
Vital Signs:
Vital Signs
Temp Pulse Resp BP Pulse Ox
97 F 80 16 136/90 94
11/17/24 07:00 11/17/24 07:00 11/17/24 07:00 11/17/24 07:00 11/17/24 07:00
I&O
11/16/24 11/17/24 11/18/24
06:59 06:59 06:59
Intake Total 360 / 360 240 / 240
Balance 360 / 360 240 / 240
Review of Systems
-
Unable to obtain full review of systems at this time due to: Dementia
History Source: Patient
Physical Exam
-
General: No Apparent Distress
Data Reviewed
-
Diagnostic Radiology: Report Reviewed by me
Labs: Labs Reviewed by me
--- NOTE | 2024-11-17 09:41 | CM ---
Reviewed the chart notes. CM continues to be available to patient/family.
Plan: GIP Hospice.
[2024-11-17] MEDS: MORPHINE SULFATE 2 MG IV ×2 (10:10→15:20)
--- NOTE | 2024-11-17 10:39 | HOSPNOTE ---
Addendum entered by Dorinda Del Cid RN 11/17/24 15:22:
Patient Flacc score of 4 this afternoon, additional dose of Morphine IVP PRN given.
Addendum entered by Dorinda Del Cid RN 11/17/24 10:41:
Talked with spouse. She reports that they have noticed each day he becomes less and less responsive and understands that is the natural part of the dying process. She reports that she is taking one day at a time. She will be visiting patient later
today. Reviewed hospice is here to support her and to reach out if she needs anything. She was thankful for the call and support. Emotional support provided.
Original Note:
Patient is minimally responsive today. He has his eyes closed, head tilted back and mouth open. He showed a flacc score of 3 when performing care this morning per primary RN and was medicated with IV Morphine PRN. Patient did not show any signs of
anxiety/restlessness at the time of visit. Extremities remain cool to touch. not present. Will attempt to call her again today to offer support. Patient is GIP level of care for the management of pain and anxiety that could not be managed in
the outpatient setting. Discharge planning continues. Hospice will visit daily. Informal report with LUIS Grewal. Agreeable with plan of care at this time.
[2024-11-17 19:00] VITALS: BP 130/90
[2024-11-18 07:45] VITALS: BP 141/96
--- NOTE | 2024-11-18 09:19 | W.PN.HOSP.TC ---
Today's Communication/Plan
-
comfort care
Assessment / Plan
Assessment / Plan
69yo M with PMHx of lewy body dementia, parkinsons, DM, HTN, HLD brought with lethargy, found hypoglycemia and possible UTI, Ucx grew Klebsiella pneumoniae, due multiple comorbidities family decided to established inpatient hospice
A/P:
#Acute metabolic encephalopathy 2/2 combination of hypoglycemia and UTI on parkinsons and Lewy body dementia
#Anemia
#folate deficiency
#Mild CPK elevation
#Chronic dysphagia
#Hypokalemia
#hypomagnesemia
#DM type 2 with unspecified complications with hypoglycemia
#gout
#ASCVD
#Anxiety
#COPD/Asthma not in exacerbation
#HLD
admitted to inpatient hospice, continue hospice care with morphine/ativan PRN
DNR
Anticipated Discharge: > 48 hours
Subjective/Interval History
-
Date of Service: November 18, 2024
resting comfortably, getting washed up
Objective Data
-
Vital Signs:
Vital Signs
Temp Pulse Resp BP Pulse Ox
97.8 F 104 16 141/96 92
11/18/24 07:45 11/18/24 07:45 11/18/24 07:45 11/18/24 07:45 11/18/24 07:45
I&O
11/17/24 11/18/24 11/19/24
06:59 06:59 06:59
Intake Total 240 / 240 0 / 0
Balance 240 / 240 0 / 0
Review of Systems
-
Unable to obtain full review of systems at this time due to: Patient Non-verbal
History Source: Patient
Physical Exam
-
General: No Apparent Distress
HEENT: PERRLA
Skin: Warm and Dry; Negative Rash
Neuro: Awake and Alert
Psych: Calm
Data Reviewed
-
Diagnostic Radiology: Report Reviewed by me
Labs: Labs Reviewed by me
--- NOTE | 2024-11-18 10:16 | HOSPNOTE ---
Maxim was awake, eyes open, minimally responsive. He did not show signs of pain. No family was present. Maxim mouthed a few words, and reached for a hand to hold. [employer] Manager provided emotional and spiritual support through presence, words of
comfort, gentle touch, Scripture reading and prayer. Will continue support through visits 2x week.
[2024-11-18] MEDS: ATIVAN 1 MG PO ×3 (10:26→19:59)
[2024-11-18] MEDS: MORPHINE SULFATE 2 MG IV ×5 (10:26→23:01)
--- NOTE | 2024-11-18 11:09 | HOSPNOTE ---
Patient was awake when I made my visit, he appears frightened, has tremors although non verbal. Patient was washed full bed bath and oral care performed. Patient was then medicated at my request with morphine and ativan. After the patient was
medicated patient appeared more relaxed tremors somewhat subsided. I encourage that the patient be medicated with ativan and morphine but patient needs ativan. Patient will need to be medicated prior to any care or repositioning. No family was
present during my visit. Patient continues to be inpatient appropriate for management of IV medications for agitation and pain.
--- NOTE | 2024-11-18 14:16 | CM ---
Reviewed the chart notes. CM continues to be available to patient/family. GIP hospice continues.
[2024-11-18 19:00] VITALS: BP 124/79
[2024-11-19 07:00] VITALS: BP 139/94
--- NOTE | 2024-11-19 08:34 | W.PN.HOSP.TC ---
Today's Communication/Plan
-
comfort care
Assessment / Plan
Assessment / Plan
69yo M with PMHx of lewy body dementia, parkinsons, DM, HTN, HLD brought with lethargy, found hypoglycemia and possible UTI, Ucx grew Klebsiella pneumoniae, due multiple comorbidities family decided to established inpatient hospice
A/P:
#Acute metabolic encephalopathy 2/2 combination of hypoglycemia and UTI on parkinsons and Lewy body dementia
#Anemia
#folate deficiency
#Mild CPK elevation
#Chronic dysphagia
#Hypokalemia
#hypomagnesemia
#DM type 2 with unspecified complications with hypoglycemia
#gout
#ASCVD
#Anxiety
#COPD/Asthma not in exacerbation
#HLD
admitted to inpatient hospice, continue hospice care with morphine/ativan PRN
DNR
Anticipated Discharge: 24 - 48 hours
Subjective/Interval History
-
Date of Service: November 19, 2024
resting comfortably
seen with at bedside
Objective Data
-
Vital Signs:
Vital Signs
Temp Pulse Resp BP Pulse Ox
97.8 F 84 16 124/79 100
11/18/24 19:00 11/18/24 19:00 11/18/24 19:00 11/18/24 19:00 11/18/24 19:00
I&O
11/18/24 11/19/24 11/20/24
06:59 06:59 06:59
Intake Total 0 / 0 0 / 0
Balance 0 / 0 0 / 0
Review of Systems
-
History Source: Patient
Physical Exam
-
General: No Apparent Distress
HEENT: PERRLA
Skin: Warm and Dry; Negative Rash
Neuro: Awake and Alert
Psych: Calm
Data Reviewed
-
Diagnostic Radiology: Report Reviewed by me
Labs: Labs Reviewed by me
[2024-11-19] MEDS: MORPHINE SULFATE 2 MG IV ×4 (08:53→19:33)
--- NOTE | 2024-11-19 10:03 | HOSPNOTE ---
Patient with eyes open, minimally verbal. Bed bath given prior to RN arrival.Patient medicated prior to any care or repositioning. Patient continues to be inpatient appropriate for management of IV medications for agitation and pain.Will call
patients to provide an update.
--- NOTE | 2024-11-19 11:08 | CM ---
Reviewed the chart notes. CM continues to be available to patient/family.
Plan: Continue GIP hospice.
--- NOTE | 2024-11-19 16:30 | HOSPNOTE ---
Spoke with patients who stated she felt patient was close to passing away and requested a nurse visit. Patient minimally responsive, eyes open but not making purposeful eye contact. Respirations 14 and non labored. Reviewed with patients
what to expect as patient transitions and becomes close to passing, encouraged her to contact hospice with any questions.
[2024-11-19 19:15] VITALS: BP 135/91
[2024-11-19] MEDS: ROBINUL 0.2 MG IV (19:34)
[2024-11-19 20:22] VITALS: BP 135/91
[2024-11-20] MEDS: ATIVAN 1 MG PO ×2 (03:44→08:01)
[2024-11-20] MEDS: MORPHINE SULFATE 2 MG IV ×6 (03:44→23:51)
[2024-11-20 07:00] VITALS: BP 134/94
[2024-11-20] MEDS: ROBINUL 0.2 MG IV ×2 (10:31→17:32)
--- NOTE | 2024-11-20 10:42 | HOSPNOTE ---
Patients eyes are open now respirations are still shallow, however the patient appears very uncomfortable with facial grimacing and very agitated. After speaking with attending and the floor RN we will begin a morphine drip and continue medicating
with the Ativan. Very minimal urine output noted. Patient continues to be inpatient appropriate for management of pain and agitation with IV medications. Patient will be seen daily by hospice.
[2024-11-20] MEDS: MORPHINE 100 IV (11:04)
--- NOTE | 2024-11-20 11:26 | CM ---
Reviewed the chart notes. Per notes, Morphine gtt to be started. CM continues to be available to patient/family.
GIP hospice continues.
--- NOTE | 2024-11-20 11:53 | W.PN.HOSP.TC ---
Today's Communication/Plan
-
comfort care
Assessment / Plan
Assessment / Plan
69yo M with PMHx of lewy body dementia, parkinsons, DM, HTN, HLD brought with lethargy, found hypoglycemia and possible UTI, Ucx grew Klebsiella pneumoniae, due multiple comorbidities family decided to established inpatient hospice
A/P:
#Acute metabolic encephalopathy 2/2 combination of hypoglycemia and UTI on parkinsons and Lewy body dementia
-admitted to Hospice
-IV Morphine gtt initiated AM of 11/20
-ativan PRN
-appreciate Hospice team
#Anemia
#folate deficiency
#Mild CPK elevation
#Chronic dysphagia
#Hypokalemia
#hypomagnesemia
#DM type 2 with unspecified complications with hypoglycemia
#gout
#ASCVD
#Anxiety
#COPD/Asthma not in exacerbation
#HLD
DNR
Anticipated Discharge: 24 - 48 hours
Subjective/Interval History
-
Date of Service: November 20, 2024
was more uncomfortable this morning
now on morphine gtt, resting comfortably
Objective Data
-
Vital Signs:
Vital Signs
Temp Pulse Resp BP Pulse Ox
97.1 F 109 16 134/94 98
11/20/24 07:00 11/20/24 07:00 11/20/24 07:00 11/20/24 07:00 11/20/24 09:49
I&O
11/19/24 11/20/24 11/21/24
06:59 06:59 06:59
Intake Total 0 / 0 0 / 0
Output Total 200 / 200
Balance 0 / 0 -200 / -200
Review of Systems
-
Unable to obtain full review of systems at this time due to: Patient Non-verbal
History Source: Patient
Physical Exam
-
General: No Apparent Distress
HEENT: PERRLA
Skin: Warm and Dry; Negative Rash
Neuro: Awake and Alert
Psych: Calm
Data Reviewed
-
Diagnostic Radiology: Report Reviewed by me
Labs: Labs Reviewed by me
--- NOTE | 2024-11-20 13:09 | HOSPNOTE ---
LABOR ARBITRATOR VISITED PATIENT FOR WEEKLY VISIT AND TO PROVIDE SUPPORTIVE SERVICES. PATIENT LAYING IN BED ASLEEP AND APPEARED TO BE RESTING COMFORTABLY, NO SIGNS OF PAIN AND/OR DISTRESS OBSERVED. PATIENT'S SPOUSE PRIYANKA PRESENT AT PATIENT'S
BEDSIDE. PRIYANKA REPORTED NURSE JUST STARTED PATIENT ON A MORPHINE DRIP AND HE'S COMFORTABLE AND PEACEFUL. PRIYANKA REPORTED THEY KEEP THEIR AIR ON 68 AT HOME AND WHEN SHE ARRIVED TO SEE PATIENT, THERMOSTAT WAS SAT ON 75, AND PATIENT'S COVERS WAS OFF, SHE
TURNED IT DOWN. PRIYANKA REPORTED HER AND JOSLYN ARE COPING APPROPRIATELY AND HAVE PLENTY OF SUPPORT FROM FAMILY AND FRIENDS. PRIYANKA REPORTED PATIENT AND SALLYER WERE BEST FRIENDS AND THEY USE TO TEAM UP ON HER AND SHE WOULD TELL SALLYER HE
ACTS JUST LIKE HIS FATHER, SHE REPORTED SHE WON'T SAY THAT ANYMORE. PRIYANKA REPORTED PATIENT IS LOVED AND HAS HAD SEVERAL VISITS FROM FRIENDS AND FAMILY. OPTICAL GLASS ETCHER COMMENDED PRIYANKA ON PICTURE COLLAGE OF PATIENT ON THE WALL, SHE WANTED PEOPLE TO SEE WHO PATIENT
WAS. PRIYANKA REPORTED PATIENT HAS BEEN RECEIVING THE BEST CARE AND SHE'S APPRECIATIVE. SPOUSE DECLINED BEREAVEMENT SERVICES. PRAYER AND EMOTIONAL SUPPORT PROVIDED NURSE REPORTED DRIP STARTED AND PATIENT IS COMFORTABLE.
PATIENT MEETS [facility] FOR SN ASSESSMENTS, MANAGEMENT OF PAIN AND AGITATION WITH IV MEDICATIONS THAT COULD NOT BE MANAGED AT HOME AND/OR IN A OUTPATIENT SETTING. DISCHARGE PLANNING CONTINUES.
OPTICAL GLASS ETCHER WILL PROVIDE SUPPORTIVE SERVICES AND MONITOR FOR ADDITIONAL SERVICES ONCE A WEEK WHILE ON GIP LEVEL OF CARE.
[2024-11-20 19:43] VITALS: BP 136/95
[2024-11-21] MEDS: MORPHINE SULFATE 2 MG IV ×2 (03:36→22:03)
[2024-11-21] MEDS: ATIVAN 1 MG PO (03:36)
[2024-11-21 07:50] VITALS: BP 120/87
--- NOTE | 2024-11-21 09:44 | W.PN.HOSP.TC ---
Today's Communication/Plan
-
comfort care
Assessment / Plan
Assessment / Plan
69yo M with PMHx of lewy body dementia, parkinsons, DM, HTN, HLD brought with lethargy, found hypoglycemia and possible UTI, Ucx grew Klebsiella pneumoniae, due multiple comorbidities family decided to established inpatient hospice
A/P:
#Acute metabolic encephalopathy 2/2 combination of hypoglycemia and UTI on parkinsons and Lewy body dementia
-admitted to Hospice
-IV Morphine gtt initiated AM of 11/20
-ativan PRN
-appreciate Hospice team
#Anemia
#folate deficiency
#Mild CPK elevation
#Chronic dysphagia
#Hypokalemia
#hypomagnesemia
#DM type 2 with unspecified complications with hypoglycemia
#gout
#ASCVD
#Anxiety
#COPD/Asthma not in exacerbation
#HLD
DNR
Anticipated Discharge: 24 - 48 hours
Subjective/Interval History
-
Date of Service: November 21, 2024
resting comfortably with family at bedside
Objective Data
-
Vital Signs:
Vital Signs
Temp Pulse Resp BP Pulse Ox
98.0 F 120 17 120/87 86
11/21/24 07:50 11/21/24 07:50 11/21/24 07:50 11/21/24 07:50 11/21/24 07:50
I&O
11/20/24 11/21/24 11/22/24
06:59 06:59 06:59
Intake Total 0 / 0 0 / 0
Output Total 200 / 200 280 / 280
Balance -200 / -200 -280 / -280
Review of Systems
-
Unable to obtain full review of systems at this time due to: Patient Non-verbal
History Source: Patient
Physical Exam
-
General: No Apparent Distress
HEENT: PERRLA
Skin: Warm and Dry; Negative Rash
Neuro: Awake and Alert
Psych: Calm
Data Reviewed
-
Diagnostic Radiology: Report Reviewed by me
Labs: Labs Reviewed by me
--- NOTE | 2024-11-21 10:10 | HOSPNOTE ---
Patient is unresponsive. He appears to be actively dying. He is on a morphine drip and is comfortable at time of visit. is bedside along with her sister. Emotional support provided. Patient is inpatient appropriate for the management of pain
and anxiety that cant be managed in the outpatient setting. Reviewed limited life expectancy with spouse, they are prepared and ready for him to be at peace. Hospice will visit daily.
--- NOTE | 2024-11-21 10:19 | CHAP ---
Maxim was resting comfortably, non-responsive. Spouse Lakeisha and her sister were bedside - they shared family memories and reflected on the bonds of love. Senior Policy Associate provided emotional and spiritual support through presence, dialogue, Scripture
reading and prayer. Will continue support through visits 2x week.
[2024-11-21 19:33] VITALS: BP 102/74
[2024-11-22] MEDS: MORPHINE SULFATE 2 MG IV ×7 (05:38→23:29)
[2024-11-22 07:06] VITALS: BP 120/85
[2024-11-22] MEDS: ATIVAN 1 MG IV ×2 (09:34→14:52)
--- NOTE | 2024-11-22 10:25 | W.PN.HOSP.TC ---
Today's Communication/Plan
-
comfort care
Assessment / Plan
Assessment / Plan
69yo M with PMHx of lewy body dementia, parkinsons, DM, HTN, HLD brought with lethargy, found hypoglycemia and possible UTI, Ucx grew Klebsiella pneumoniae, due multiple comorbidities family decided to established inpatient hospice
A/P:
#Acute metabolic encephalopathy 2/2 combination of hypoglycemia and UTI on parkinsons and Lewy body dementia
-admitted to Hospice
-IV Morphine gtt initiated AM of 11/20
-IV ativan PRN
-appreciate Hospice team
#Anemia
#folate deficiency
#Mild CPK elevation
#Chronic dysphagia
#Hypokalemia
#hypomagnesemia
#DM type 2 with unspecified complications with hypoglycemia
#gout
#ASCVD
#Anxiety
#COPD/Asthma not in exacerbation
#HLD
DNR
Anticipated Discharge: 24 - 48 hours
Subjective/Interval History
-
Date of Service: November 22, 2024
resting comfortably with at bedside
Objective Data
-
Vital Signs:
Vital Signs
Temp Pulse Resp BP Pulse Ox
97.6 F 117 16 120/85 89
11/22/24 07:06 11/22/24 07:06 11/22/24 07:06 11/22/24 07:06 11/22/24 07:06
I&O
11/21/24 11/22/24 11/23/24
06:59 06:59 06:59
Intake Total 0 / 0 0 / 0
Output Total 280 / 280 475 / 475
Balance -280 / -280 -475 / -475
Review of Systems
-
History Source: Patient
All other systems: Reviewed and negative
Physical Exam
-
General: No Apparent Distress
HEENT: PERRLA
Skin: Warm and Dry; Negative Rash
Neuro: Awake and Alert
Psych: Calm
Data Reviewed
-
Diagnostic Radiology: Report Reviewed by me
Labs: Labs Reviewed by me
--- NOTE | 2024-11-22 10:27 | PTCARENOTE ---
bed bath complete. prn ativan and morphine given prior to bedbath and turns. morphine gtt going at step 1 rate through L forearm site. rowell catheter exchanged, 18 palauan placed in hopes a wider diameter will decrease any leakage around sides of
rowell. educated and updated at bedside. see Worklist and MAR for proper documentation of care.
--- NOTE | 2024-11-22 11:51 | HOSPNOTE ---
Patient actively dying, unresponsive. FLACC 0 on Morphine drip step 1. Breathing nonlabored RR 16-18 with short periods of apnea. Mottling to lower extremities, weak PP. Ativan x1 dose in the last 24 hours. Appears very calm and peaceful. Spouse and
sister in law at bedside. Active listening and emotional support provided, holding up the best they can. Patient will remain GIP for management of pain and agitation with IV medication. Will continue to be seen by hospice daily.
[2024-11-22] MEDS: MORPHINE 100 IV (14:36)
--- NOTE | 2024-11-22 16:21 | PTCARENOTE ---
new morphine gtt hung at 1436 at a step 1 rate per protocol
[2024-11-22 19:53] VITALS: BP 132/79
[2024-11-23] MEDS: ATIVAN 1 MG IV (01:37)
[2024-11-23] MEDS: MORPHINE SULFATE 2 MG IV ×7 (01:38→18:32)
[2024-11-23] MEDS: NSS (PRESERVATIVE FREE) 0.5 ML IV (01:38)
[2024-11-23 07:35] VITALS: BP 117/84
--- NOTE | 2024-11-23 11:53 | CM ---
Reviewed the chart notes. Patient on Morphine gtt. CM continues to be available to patient/family.
Plan: GIP Hospice continues.
[2024-11-23] MEDS: ROBINUL 0.2 MG IV (14:29)
--- NOTE | 2024-11-23 16:55 | HOSPNOTE ---
Patient is actively dying. He meets inpatient hospice criteria for the management of pain and anxiety that could not be managed in the outpatient setting. He is on a morphine drip at 2 mg/hr and recieved a total of 4 breakthrough doses of morphine
in the past 24h. Spouse bedside, emotional support provided. Informal report with LUIS Pizarro, agreeable with plan of care. Reviewed hospice will visit daily.
--- NOTE | 2024-11-23 19:20 | W.PN.HOSP.TC ---
Today's Communication/Plan
-
comfort care
Assessment / Plan
Assessment / Plan
Heart:RRR, S1 S@
Abd Soft no tender, no distended
69yo M with PMHx of lewy body dementia, parkinsons, DM, HTN, HLD brought with lethargy, found hypoglycemia and possible UTI, Ucx grew Klebsiella pneumoniae, due multiple comorbidities family decided to established inpatient hospice
A/P:
#Acute metabolic encephalopathy 2/2 combination of hypoglycemia and UTI on parkinsons and Lewy body dementia
-admitted to Hospice
-IV Morphine gtt initiated AM of 11/20
-IV ativan PRN
-appreciate Hospice team
#Anemia
#folate deficiency
#Mild CPK elevation
#Chronic dysphagia
#Hypokalemia
#hypomagnesemia
#DM type 2 with unspecified complications with hypoglycemia
#gout
#ASCVD
#Anxiety
#COPD/Asthma not in exacerbation
#HLD
DNR
Anticipated Discharge: 24 - 48 hours
Subjective/Interval History
-
Date of Service: November 23, 2024
Objective Data
-
Vital Signs:
Vital Signs
Temp Pulse Resp BP Pulse Ox
98.0 F 127 17 117/84 90
11/23/24 07:35 11/23/24 07:35 11/23/24 07:35 11/23/24 07:35 11/23/24 08:41
I&O
11/22/24 11/23/24 11/24/24
06:59 06:59 06:59
Intake Total 0 / 0
Output Total 475 / 475 500 / 500 350 / 350
Balance -475 / -475 -488 / -488 -350 / -350
[2024-11-23 19:36] VITALS: BP 121/82
--- NOTE | 2024-11-24 08:29 | W.PN.HOSP.TC ---
Today's Communication/Plan
-
Comfort care measures
Assessment / Plan
Assessment / Plan
Heart:RRR, S1 S2, no murmurs
Abd Soft no tender, no distended
Minimally responsive
69yo M with PMHx of lewy body dementia, parkinsons, DM, HTN, HLD brought with lethargy, found hypoglycemia and possible UTI, Ucx grew Klebsiella pneumoniae, due multiple comorbidities family decided to established inpatient hospice
A/P:
#Acute metabolic encephalopathy 2/2 combination of hypoglycemia and UTI on parkinsons and Lewy body dementia
-admitted to Hospice
- Continue IV morphine drip
-IV ativan PRN
-Hospice team input appreciated
#Anemia
#folate deficiency
#Mild CPK elevation
#Chronic dysphagia
#Hypokalemia
#hypomagnesemia
#DM type 2 with unspecified complications with hypoglycemia
#gout
#ASCVD
#Anxiety
#COPD/Asthma not in exacerbation
#HLD
DNR
Anticipated Discharge: 24 - 48 hours
Subjective/Interval History
-
Date of Service: November 24, 2024
Appears comfortable
Objective Data
-
Vital Signs:
Vital Signs
Temp Pulse Resp BP Pulse Ox
99 F 104 17 121/82 94
11/23/24 19:36 11/23/24 19:36 11/23/24 19:36 11/23/24 19:36 11/23/24 19:36
I&O
11/23/24 11/24/24 11/25/24
06:59 06:59 06:59
Intake Total
Output Total 500 / 500 750 / 750
Balance -488 / -488 -750 / -750
[2024-11-24 09:29] VITALS: BP 96/67
[2024-11-24] MEDS: MORPHINE SULFATE 2 MG IV ×4 (14:00→20:40)
[2024-11-24] MEDS: MORPHINE 100 IV (16:17)
--- NOTE | 2024-11-24 17:47 | HOSPNOTE ---
Patient is actively dying and unresponsive. Patient in inpatient level of hospice care for the management of pain, anxiety and secretions that could not be managed in the outpatient setting. Morphine infusing at 2 mg/hr and 3 breakthrough doses
given. Spouse is bedside, emotional support provided. Informal report with Dax, agreeable with plan of care. Hospice will visit daily.
[2024-11-24 19:40] VITALS: BP 81/56
[2024-11-25] MEDS: MORPHINE SULFATE 2 MG IV ×3 (00:01→02:09)
[2024-11-25] MEDS: MORPHINE SULFATE 4 MG IV (04:50)
[2024-11-25 07:23] VITALS: BP 74/50
--- NOTE | 2024-11-25 09:51 | W.PN.HOSP.TC ---
Today's Communication/Plan
-
Comfort care
Assessment / Plan
Assessment / Plan
Heart:RRR, S1 S2, no murmurs
Abd Soft no tender, no distended
Minimally responsive
69yo M with PMHx of lewy body dementia, parkinsons, DM, HTN, HLD brought with lethargy, found hypoglycemia and possible UTI, Ucx grew Klebsiella pneumoniae, due multiple comorbidities family decided to established inpatient hospice
A/P:
#Acute metabolic encephalopathy 2/2 combination of hypoglycemia and UTI on parkinsons and Lewy body dementia
-admitted to Hospice
- Continue IV morphine drip
-IV ativan PRN
-Hospice team input appreciated
- Discussed with at bedside today
#Anemia
#folate deficiency
#Mild CPK elevation
#Chronic dysphagia
#Hypokalemia
#hypomagnesemia
#DM type 2 with unspecified complications with hypoglycemia
#gout
#ASCVD
#Anxiety
#COPD/Asthma not in exacerbation
#HLD
DNR
Anticipated Discharge: 24 - 48 hours
Subjective/Interval History
-
Date of Service: November 25, 2024
Appears comfortable. Less responsive overall
Objective Data
-
Vital Signs:
Vital Signs
Temp Pulse Resp BP Pulse Ox
99.6 F 123 14 74/50 93
11/25/24 07:23 11/25/24 07:23 11/25/24 07:23 11/25/24 07:23 11/25/24 07:23
I&O
11/24/24 11/25/24 11/26/24
06:59 06:59 06:59
Output Total 750 / 750 125 / 125
Balance -750 / -750 -125 / -125
--- NOTE | 2024-11-25 11:28 | HOSPNOTE ---
Maxim was sleeping, non-responsive. Lakeisha was at his side. She shared her appreciation for the staff - 'it's like family here - I feel the embrace.' She welcomed prayer from the [facility]. Emotional and spiritual support provided. Will
continue support through visits 2x week.
--- NOTE | 2024-11-25 14:02 | HOSPNOTE ---
NARRATIVE: HEALTHCARE INSURANCE SALES AGENT VISITED WITH PATIENT FOR WEEKLY VISIT AND TO PROVIDE SUPPORTIVE SERVICES. [employer] SERVICE HELPER GREETED PRIYANKA UPON ENTERING PATIENT'S ROOM. PRIYANKA INTRODUCED INDUSTRIAL GAS SERVICE HELPER TO PATIENT'S [facility]. PATIENT LYING IN BED ASLEEP AND RESTING
COMFORTABLY, NO SIGNS OF PAIN AND/OR DISTRESS OBSERVED. PRIYANKA REPORTED HIS BREATHING IS DIFFERENT AND MEDICATIONS HAVE BEEN INCREASED. PRIYANKA REPORTED SHARON IS COPING APPROPRIATELY HE HAS GOOD DAYS AND BAD DAYS, HE SPENT TIME ALONE WITH PATIENT AND
THAT WAS GOOD FOR HIM. PRIYANKA REPORTED SHE'S BEING DOING FINE AND GOING HOME AT NIGHT AND SLEEPING IN HER OWN BED. PRIYANKA REPORTED SHE KNOWS PATIENT WANTS HER TO BE HOME WITH SHARON AND FOR THEM TO TAKE CARE OF EACH OTHER. NURSE REPORTED MEDICATION
INCREASED AND PATIENT RESTING COMFORTABLY. PRAYER AND EMOTIONAL SUPPORT PROVIDED
PATIENT MEETS [facility] FOR SN ASSESSMENTS, MANAGEMENT OF PAIN AND AGITATION WITH IV MEDICATIONS THAT COULD NOT BE MANAGED IN A OUTPATIENT SETTING. DISCHARGE PLANNING CONTINUES
PLAN FOR NEXT VISIT: PROVIDE SUPPORTIVE SERVICES AND MONITOR FOR ADDITIONAL SERVICES ONCE A WEEK WHILE ON [facility] LEVEL OF CARE.
--- NOTE | 2024-11-25 17:46 | HOSPNOTE ---
Patient is actively dying and unresponsive. Patient in inpatient level of hospice care for the management of pain, anxiety and secretions that could not be managed in the outpatient setting. Morphine infusing at 4 mg/hr and 1 breakthrough doses
given early this morning. Spouse is bedside, emotional support provided. Informal report with Dax, agreeable with plan of care. Hospice will visit daily.
[2024-11-25 19:35] VITALS: BP 67/39
--- NOTE | 2024-11-26 00:38 | W.PN.DEATH ---
Pronouncement of
-
Called to see patient to pronounce.
No spontaneous heart tones or respirations noted.
Patient not responsive to verbal stimuli.
Patient is pronounced .
Family at the bedside.
Time of : 23:55
Date of : 11/25/24
Family Notified: Yes
--- NOTE | 2024-11-26 07:57 | W.DCSUMMARY ---
Discharge Summary
Discharge Data
Date of Admission: 11/10/24
Date of Discharge: 11/25/24
-
Pending Results: No
Hospital Course
Patient is 69 years old male with history of Lewy bodies dementia, Parkinson's, diabetes mellitus, hypertension, brought into the hospital mental status changes with lethargy hypoglycemia and also found to have urinary tract infection. Patient
continued to do poorly throughout the hospital stay and discussions took place and he was admitted to inpatient hospice care. Patient was placed on comfort care medications. Patient on 11/25/2024.
Discharge Plan
-
Patient Disposition:
Date/Time
Date/Time: 11/25/24 23:55
Discharge Date and Time
Discharge Date/Time: 11/25/24 23:55
Print Language: CROATIAN
== END 2024-11-25 23:55 | disposition expired | DRG 951 ==
LOC: 2 NORTH 14:30
PROVIDERS: ADMITTING PHYSICIAN Hospitalist
DX: Z51.5 Encounter for palliative care (principal); G93.41 Metabolic encephalopathy; F02.84 Dementia in other diseases classified elsewhere, unspecified severity, with anxiety; N39.0 Urinary tract infection, site not specified; G31.83 Neurocognitive disorder with Lewy bodies; G20.A1 Parkinson's disease without dyskinesia, without mention of fluctuations; I10 Essential (primary) hypertension; B96.1 Klebsiella pneumoniae [K. pneumoniae] as the cause of diseases classified elsewhere; R13.10 Dysphagia, unspecified; E78.00 Pure hypercholesterolemia, unspecified; R53.83 Other fatigue; D64.9 Anemia, unspecified; M10.9 Gout, unspecified; J44.89 Other specified chronic obstructive pulmonary disease; I25.10 Atherosclerotic heart disease of native coronary artery without angina pectoris; E83.42 Hypomagnesemia; E11.649 Type 2 diabetes mellitus with hypoglycemia without coma; E53.8 Deficiency of other specified B group vitamins; R74.8 Abnormal levels of other serum enzymes; R00.0 Tachycardia, unspecified; E87.6 Hypokalemia; Z66 Do not resuscitate; Z78.1 Physical restraint status; Z88.1 Allergy status to other antibiotic agents